=== PATIENT | female | born 1935 | race Caucasian/White ===

== ENCOUNTER 2016-08-22 17:38 | Inpatient (IN) | payer MEDICARE, OTHER ==
[~2016-08-22] VITALS: Ht 154.9 cm; Wt 68.5 kg
[~2016-08-22 17:38] MED LIST: ADVAIR 500-501 EACH IH; ATORVASTATIN CA10 MG PO; ATROVENT INH S2.5 ML HHN; CARDIZEM CD300 MG PO; CARDIZEM90 MG ORAL; CEPHALEXIN500 MG ORAL; COMBIVENT INH14.7 GM INH; FUROSEMIDE40 MG ORAL; KEFLEX500 MG ORAL; LASIX40 MG ORAL; LASIX80 MG PO; LISINOPRIL20 MG ORAL; METHADONE HCL10 MG PO; METHADONE HCL5 MG PO; NKM; OMEPRAZOLE20 MG PO; OMEPRAZOLE40 M1 ORAL; PREDNISONE10 MG ORAL; PREDNISONE20 MG ORAL; PROAIR HFA8.5 GM INH; SYNTHROID75 MCG PO; ZESTRIL20 MG PO; ZITHROMAX250 MG ORAL
[2016-08-22] MEDS ORDERED: DuoNeb 0.5-3(2.5)mg/3ml neb ONE (17:40)
[2016-08-22 17:44] VITALS: BP 153/101
--- NOTE | 2016-08-22 17:59 | Emergency Room Report ---
History of Present Illness General Chief Complaint: Dyspnea/Respdistress Source: Patient, EMS Present Illness HPI Patient is an 81-year-old female who presented after increased shortness of breath. Patient gradual onset of symptoms. Patient had taken albuterol prior to arrival. Patient was brought in by EMS. The patient was noted to have prior history of COPD. Patient is followed by Dr. Dallas Branch. She reportedly intermittently uses home oxygen. The patient's history was a smoker approximately 15 years ago. Patient denied any fever. She reports having leg swelling which reportedly is unchanged Allergies: Coded Allergies: MOXIFLOXACIN HCL (Verified Allergy, Intermediate, Rash, 04/08/12) HYDROCHLOROTHIAZIDE (Verified Adverse Reaction, Intermediate, HYPONATEREMIA, 03/22/13) TRIAMTERENE (Verified Adverse Reaction, Intermediate, HYPONATEREMIA, ) Patient History Reviewed Nursing Documentation: PMH: Agreed, PSxH: Agreed Nursing Documentation-PMH Hx Cardiac Problems: Yes Hx Hypertension: Yes Hx Asthma: Yes Hx COPD: Yes Hx Cancer: Yes Hx Gastrointestinal Problems: Yes - colostomy; rectal ca ,Bladder removed 15- 20 years ago Hx Neurological Problems: Yes Hx Cerebrovascular Accident: Yes Hx Transient Ischemic Attacks: No Hx Dementia: No Hx Alzheimer's Disease: No Hx Parkinson's Disease: No Hx Meningitis: No Hx Encephalitis: No Hx Seizures: No Hx Epilepsy: No Hx Multiple Sclerosis: No Hx Cerebral Palsy: No Hx Amyotrophic Lat Sclerosis: No Hx Guillian-Wharton Syndrome: No Hx Paralysis: No Hx Peripheral Neuropathy: No Hx Spinal Cord Injury: No Hx Head Trauma: No Hx Traumatic Brain Injury: No Hx Concentration Difficulty: No Hx Speech Problem: Yes - 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 Hx Tremors: No Hx Vertigo: No Hx Dizziness: No Hx Syncope: No Hx Headaches: No Hx Aphasia: No Hx Dysphasia: No Hx Numbness: No Hx Weakness: No Hx Fatigue: No Hx Neurologic Surgery: No Hx Brain Shunt: No Review of Systems All Other Systems: negative except mentioned in HPI Physical Exam Vital Signs Date Time Temp Pulse Resp B/P Pulse Ox O2 Delivery O2 Flow Rate FiO2 08/22/16 17:37 98.4 87 21 153/101 91 Room Air Sp02 EP Interpretation: reviewed, normal General Appearance: normal inspection, alert, GCS 15, moderate distress Head: atraumatic ENT: normal ENT inspection, hearing grossly normal, normal voice Neck: normal inspection, full range of motion, supple, no bony tend Respiratory: normal inspection, normal breath sounds, no retraction, decreased breath sounds, wheezing Cardiovascular #1: regular rate, rhythm, no edema Gastrointestinal: normal inspection, normal bowel sounds, non tender, soft, no guarding, no hernia Genitourinary: no CVA tenderness Musculoskeletal: normal inspection, back normal, normal range of motion Neurologic: normal inspection, alert, oriented x3, responsive, speech normal Psychiatric: normal inspection, judgement/insight normal, mood/affect normal Skin: normal inspection, normal color, no rash Medical Decision Making Diagnostic Impression: Primary Impression: COPD (chronic obstructive pulmonary disease) Additional Impressions: Hypoxemia UTI (urinary tract infection) ER Course Patient presented for shortness of breath.Differential included but was not limited to anemia, pneumonia, pneumothorax, myocardial infarction, pericardial effusion, congestive heart failure, acidosis. Because of complexity of patient' s case laboratory testing and imaging studies were ordered.The patient was noted to have history of COPD. Patient was given breathing treatment. Initial oxygen saturation was noted to be approximately 88.Patient was noted to have the chest x-ray one view interpreted by me which showed scarring versus atelectasis in the right lung as well as normal cardiac size without have definite infiltrate.The patient was given breathing treatments as well as Solu- Medrol. Laboratory testing was unremarkable. The patient had some improvement in her breathing. Patient was discussed with Dr. Dallas Branch for inpatient management. Labs Test 08/22/16 17:55 08/22/16 18:43 White Blood Count 10.2 K/UL (4.8-10.8) Red Blood Count 5.36 M/UL (4.20-5.40) Hemoglobin 16.0 G/DL (12.0-16.0) Hematocrit 48.8 % (37.0-47.0) Mean Corpuscular Volume 91 FL (80-99) Mean Corpuscular Hemoglobin 29.8 PG (27.0-31.0) Mean Corpuscular Hemoglobin Concent 32.8 G/DL (32.0-36.0) Red Cell Distribution Width 11.5 % (11.6-14.8) Platelet Count 177 K/UL (150-450) Mean Platelet Volume 7.1 FL (6.5-10.1) Neutrophils (%) (Auto) 82.4 % (45.0-75.0) Lymphocytes (%) (Auto) 8.0 % (20.0-45.0) Monocytes (%) (Auto) 8.0 % (1.0-10.0) Eosinophils (%) (Auto) 0.9 % (0.0-3.0) Basophils (%) (Auto) 0.8 % (0.0-2.0) Sodium Level 131 mEQ/L (135-145) Potassium Level 4.8 mEQ/L (3.4-4.9) Chloride Level 89 mEQ/L (98-107) Carbon Dioxide Level 24 mEQ/L (20-30) Anion Gap 18 (5-15) Blood Urea Nitrogen 10 mg/dL (7-23) Creatinine 0.9 mg/dL (0.5-0.9) Estimat Glomerular Filtration Rate mL/min (>60) Glucose Level 113 mg/dL (74-106) Lactic Acid Level 1.00 mmol/L (0.66-2.22) Calcium Level 9.5 mg/dL (8.6-10.2) Total Bilirubin 0.7 mg/dL (0.0-1.2) Aspartate Amino Transf (AST/SGOT) 30 U/L (5-40) Alanine Aminotransferase (ALT/SGPT) 19 U/L (3-33) Alkaline Phosphatase 101 U/L (35-104) Total Creatine Kinase 128 U/L (26-140) Creatine Kinase MB 4.0 ng/mL (< 3.8) Creatine Kinase MB Relative Index 3.1 Troponin I < 0.30 ng/mL (<=0.30) Pro-B-Type Natriuretic Peptide 168 pg/mL (0-450) Total Protein 7.1 g/dL (6.6-8.7) Albumin 4.3 g/dL (3.5-5.2) Globulin 2.8 g/dL Albumin/Globulin Ratio 1.5 (1.0-2.7) Urine Color Yellow Urine Appearance Clear Urine pH 6.5 (4.5-8.0) Urine Specific [place] 1.010 (1.005-1.035) Urine Protein Negative (NEGATIVE) Urine Glucose (UA) Negative (NEGATIVE) Urine Ketones Negative (NEGATIVE) Urine Occult Blood Negative (NEGATIVE) Urine Nitrite Negative (NEGATIVE) Urine Bilirubin Negative (NEGATIVE) Urine Urobilinogen Normal MG/DL (0.0-1.0) Urine Leukocyte Esterase 2+ (NEGATIVE) Urine RBC 0-2 /HPF (0 - 2) Urine WBC 2-4 /HPF (0 - 2) Urine Squamous Epithelial Cells Few /LPF (NONE/OCC) Urine Bacteria Few /HPF (NONE) Chest X-Ray Diagnostic Results EP Interpretation: Yes Findings: no consolidation, no effusion, no pneumothorax, no acute cardiopulmonary disease Number of Views: 1 Last Vital Signs Date Time Temp Pulse Resp B/P Pulse Ox O2 Delivery O2 Flow Rate FiO2 08/22/16 17:44 98.4 81 21 153/101 91 Room Air Status: unchanged Disposition: ADMITTED INPATIENT Condition: Serious Scripts Prednisone* (PREDNISONE*) 20 Mg Tablet 40 MG ORAL DAILY, #10 TAB Prov: Gino Landaverde 08/22/16 Gino Landaverde Aug 22, 2016 17:59
[2016-08-22] MEDS ORDERED: DuoNeb 0.5-3(2.5)mg/3ml neb HHN ONE (18:00)
[2016-08-22 18:29] LABS: ALANINE AMINOTRANSFERASE 19 U/L (3-33); ALBUMIN/GLOBULIN RATIO 1.5 (1.0-2.7); ANION GAP 18 (5-15); ASPARTATE AMINO TRANSFERASE 30 U/L (5-40); CALCIUM 9.5 mg/dL (8.6-10.2); CARBON DIOXIDE 24 mEQ/L (20-30); CHLORIDE 89 mEQ/L (98-107); CREATININE 0.9 mg/dL (0.5-0.9); HEMOLYSIS 90; POTASSIUM 4.8 mEQ/L (3.4-4.9); SODIUM 131 mEQ/L (135-145); TOTAL PROTEIN 7.1 g/dL (6.6-8.7); TROPONIN I < 0.30 ng/mL (<=0.30)
[2016-08-22 18:30] LABS: BASOPHILS % (AUTO) 0.8 % (0.0-2.0); EOSINOPHILS % (AUTO) 0.9 % (0.0-3.0); MEAN CORPUSCULAR HEMOGLOBIN 29.8 PG (27.0-31.0); MEAN CORPUSCULAR HGB CONC 32.8 G/DL (32.0-36.0); MEAN CORPUSCULAR VOLUME 91 FL (80-99); MEAN PLATELET VOLUME 7.1 FL (6.5-10.1); NEUTROPHILS % (AUTO) 82.4 % (45.0-75.0); PLATELET COUNT 177 K/UL (150-450); RED BLOOD COUNT 5.36 M/UL (4.20-5.40); RED CELL DISTRIBUTION WIDTH 11.5 % (11.6-14.8); WHITE BLOOD COUNT 10.2 K/UL (4.8-10.8)
[2016-08-22 19:13] VITALS: BP 125/55
[2016-08-22] MEDS ORDERED: Solu-MEDROL 125mg Inj IVP ONE (19:45)
[2016-08-22 19:48] LABS: APPEARANCE,URINE CLEAR; KETONES,URINE NEGATIVE (NEGATIVE); LEUKOCYTE ESTERASE ,URINE 2+ (NEGATIVE); NITRITE,URINE NEGATIVE (NEGATIVE); PH,URINE 6.5 (4.5-8.0); PROTEIN,URINE NEGATIVE (NEGATIVE); UROBILINOGEN,URINE NORMAL MG/DL (0.0-1.0)
[2016-08-22 20:02] LABS: BACTERIA,URINE FEW /HPF; RBC,URINE 0-2 /HPF (0 - 2); SQUAMOUS EPITHELIAL CELL,UR FEW /LPF (NONE/OCC)
[2016-08-22] MEDS ORDERED: PREDNISONE20 MG ORAL (20:07)
[2016-08-22 21:04] VITALS: BP 132/57
[2016-08-22 21:15] VITALS: BP 135/69
[2016-08-22 23:19] VITALS: BP 103/55
[2016-08-23] MEDS: DuoNeb 0.5-3(2.5)mg/3ml neb HHN SCH ×7 (03:00→22:55)
[2016-08-23 03:37] VITALS: BP 136/64
[2016-08-23] MEDS: Solu-MEDROL 40mg Inj IVP SCH ×3 (06:29→21:47)
[2016-08-23 07:47] LABS: BASOPHILS % (AUTO) 0.7 % (0.0-2.0); EOSINOPHILS % (AUTO) 2.4 % (0.0-3.0); LYMPHOCYTES % (AUTO) 17.3 % (20.0-45.0); MEAN CORPUSCULAR HEMOGLOBIN 30.3 PG (27.0-31.0); MEAN CORPUSCULAR HGB CONC 32.5 G/DL (32.0-36.0); MEAN CORPUSCULAR VOLUME 93 FL (80-99); MEAN PLATELET VOLUME 6.5 FL (6.5-10.1); NEUTROPHILS % (AUTO) 68.6 % (45.0-75.0); PLATELET COUNT 143 K/UL (150-450); RED BLOOD COUNT 4.49 M/UL (4.20-5.40); RED CELL DISTRIBUTION WIDTH 11.9 % (11.6-14.8); WHITE BLOOD COUNT 8.7 K/UL (4.8-10.8)
[2016-08-23 07:55] LABS: ALANINE AMINOTRANSFERASE 17 U/L (3-33); ALBUMIN/GLOBULIN RATIO 1.5 (1.0-2.7); ANION GAP 11 (5-15); ASPARTATE AMINO TRANSFERASE 22 U/L (5-40); CALCIUM 8.9 mg/dL (8.6-10.2); CARBON DIOXIDE 31 mEQ/L (20-30); CHLORIDE 91 mEQ/L (98-107); CHOLESTEROL 125 mg/dL (< 200); CHOLESTEROL/HDL RATIO 1.4 (3.3-4.4); CREATININE 0.9 mg/dL (0.5-0.9); HEMOLYSIS 5; LDL CHOLESTEROL (CALC.) 29 mg/dL (60-99); POTASSIUM 4.6 mEQ/L (3.4-4.9); SODIUM 133 mEQ/L (135-145); TOTAL PROTEIN 6.1 g/dL (6.6-8.7)
[2016-08-23 08:26] VITALS: BP 126/67
[2016-08-23] MEDS: Diltiazem CD 180mg cap ORAL SCH (09:05)
[2016-08-23] MEDS: Lisinopril 20mg tab ORAL SCH ×2 (09:05→18:00)
[2016-08-23] MEDS: Azithromycin 250mg tab ORAL SCH (09:06)
--- NOTE | 2016-08-23 10:40 | Diagnostic Imaging Report ---
Indication: SOB Technique: One view of the chest Comparison: 05/13/2016 Findings: Lungs are somewhat hyperinflated. Heart size is normal. Aorta is elongated tortuous and calcified. There is central bronchial wall thickening Findings are unchanged Impression: No acute process. Findings as noted This agrees with the preliminary interpretation provided by the emergency room physician
[2016-08-23 11:43] VITALS: BP 115/75
[2016-08-23 16:00] VITALS: BP 92/58
--- NOTE | 2016-08-23 16:54 | History & Physical ---
History and Physical History & Physicial CC: SOB, emesis HISTORY OF PRESENT ILLNESS: Patient is a 81-year-old woman who was admitted through the emergency department. She came in complaining of increased SOB and emesis, unable to keep liquids down She has developed edema of both legs. BNP normal. She feels better today. PAST MEDICAL HISTORY: Hypertension, COPD, rectal cancer with colostomy. 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 She had a stroke with good recovery in 1998. She was admitted for SBO in past. ALLERGIES: HYDROCHLOROTHIAZIDE, MOXIFLOXACIN, TRIAMTERENE. FAMILY HISTORY: Negative for cardiac disease. MEDICATIONS: Reviewed and reconciled. REVIEW OF SYSTEMS: She has no personal history of cardiac disease. There is no chest pain. She has pedal edema. She has no nausea, vomiting or diarrhea. She does complain of joint pain. PHYSICAL EXAMINATION: GENERAL: The patient is alert and responsive. She is overweight. She is in no distress. VITAL SIGNS: Sinus rhythm, VS stable, low grade fever HEENT: Head is normocephalic. NECK: Not distended. CHEST: Decreased air entry with mild wheezing. CARDIAC: Rhythm is regular ABDOMEN: Soft and nontender, colostomy is in place. EXTREMITIES: ++ edema. CXR NAD IMPRESSION: 1. Acute exacerbation COPD 2. edema, normal BNP 3. Hyperlipidemia 4. History of colorectal cancer with colostomy. 5. Hypertension. Plan: HHN steroids lasix O2 RIAZ Palacios Aug 23, 2016 16:54
[2016-08-23 20:00] VITALS: BP 145/70
[2016-08-23] MEDS ORDERED: Atorvastatin 20mg tab ORAL SCH (21:00)
[2016-08-24] VITALS: BP 126/62
[2016-08-24] MEDS: DuoNeb 0.5-3(2.5)mg/3ml neb HHN SCH ×3 (03:00→10:54)
[2016-08-24 04:30] VITALS: BP 127/74
[2016-08-24] MEDS: Solu-MEDROL 40mg Inj IVP SCH ×2 (06:30→14:22)
[2016-08-24 08:00] VITALS: BP 133/66
[2016-08-24] MEDS: Azithromycin 250mg tab ORAL SCH (08:41)
[2016-08-24] MEDS: Lisinopril 20mg tab ORAL SCH (08:43)
[2016-08-24] MEDS: Diltiazem CD 180mg cap ORAL SCH (08:45)
--- NOTE | 2016-08-24 11:03 | Diagnostic Imaging Report ---
APPROVED REPORT CPT Code: 48526 Present Symptoms Comments: Swelling RIGHT LEG: Venous imaging reveals recanalized chronic thrombus in the superficial femoral vein. Large collateral vein noted anterior to the superficial femoral artery. The remainder of the deep venous system is within normal limits. There is no evidence of thrombus in the common femoral, popliteal or calf veins. The greater saphenous vein is also within normal limits. Doppler indicates normal spontaneous flow within these segments. LEFT LEG: Venous imaging reveals a patent deep venous system. There is no evidence of thrombus within the femoral, popliteal or tibial segments. The greater saphenous vein is also within normal limits. Doppler indicates normal spontaneous flow within these segments. There is no evidence of acute deep vein thrombosis.
[2016-08-24 11:25] VITALS: BP 127/64
[2016-08-24] MEDS ORDERED: PREDNISONE10 M2 PO (14:29)
[2016-08-24] MEDS ORDERED: FUROSEMIDE20 M1 ORAL (14:29)
--- NOTE | 2016-08-24 14:32 | Discharge Summary ---
Discharge Summary Hospital Course Date of Admission Aug 22, 2016 at 18:10 Date of Discharge 08/24/16 Admitting Diagnosis COPD EXACERBATION HPI Sherley Rceinos is a 81 year old female who was admitted on Aug 22, 2016 at 18: 10 for Chronic Obstructive Pulmonary Disease Exacerbation Consultations no Procedures no Hospital Course 1. Acute exacerbation COPD 2. edema, normal BNP 3. Hyperlipidemia 4. History of colorectal cancer with colostomy. 5. Hypertension. improved w steroids, lasix dc home Discharge Medications New Medications: Prednisone (Prednisone) 10 Mg Tab.ds.pk 10 MG PO QD for 10 Days, #10 PACK Furosemide* (Lasix*) 20 Mg Tablet 20 MG ORAL DAILY, #30 TAB Continued Medications: Atorvastatin Calcium* (Lipitor*) 10 Mg Tablet 20 MG PO QHS Take one tablet by mouth at bedtime daily Diltiazem HCl (Diltiazem HCl) 90 Mg Tab 360 MG ORAL DAILY, TAB Fluticasone/Salmeterol (Advair 500-50 Diskus) 1 Each Disk.w.dev 1 EACH IH BID Ipratropium/Albuterol Sulfate (Combivent Inhaler) 14.7 Gm Aer.w.adap 2 PUFFS INH FOUR TIMES A DAY PRN for Shortness of Breath Levothyroxine Sodium* (Synthroid*) 75 Mcg Tablet 100 MCG PO DAILY, TAB Take 1 tablet by mouth every day. Lisinopril (Lisinopril*) 20 Mg Tablet 20 MG ORAL BID, TAB 0 Refills Methadone Hcl* (Methadone*) 5 Mg Tablet 50 MG PO DAILY, TAB 0 Refills Omeprazole (Omeprazole) 40 Mg Capsule.dr 40 MG ORAL DAILY PRN for Nausea & Vomiting, CAP 0 Refills Discontinued Medications: Azithromycin* (Zithromax*) 250 Mg Tablet 250 MG ORAL DAILY, #6 TAB Cephalexin* (Keflex*) 500 Mg Capsule 500 MG ORAL EVERY 8 HOURS, #21 CAP 0 Refills Prednisone* (Prednisone*) 10 Mg Tablet 10 MG ORAL DAILY for 5 Days, #10 TAB 0 Refills Prednisone* (Prednisone*) 20 Mg Tablet 40 MG ORAL DAILY, #10 TAB Discharge Condition Upon Discharge: improving Discharge Disposition Patient was discharged to home Discharge Diagnoses: (1) Acute exacerbation of chronic obstructive pulmonary disease (COPD) (2) Edema extremities (3) Hypothyroid RIAZ FRAGOSO Aug 24, 2016 14:32
--- NOTE | 2016-08-25 03:10 | Cardiology Report ---
APPROVED REPORT EKG Measurement Heart [id number] ID [id number] Normal sinus rhythm Cannot rule out Anterior infarct, age undetermined Abnormal ECG
== END 2016-08-24 15:30 | disposition home or self-care (01) | DRG 192 ==
LOC: EDSEX 17:38 → EDBD 17:38 → EMR 18:06 → UNDOADMIN 18:10 → 2E 18:10 → EDBEDREQ 19:37
DX: J44.1 Chronic obstructive pulmonary disease with (acute) exacerbation (principal); Z99.81 Dependence on supplemental oxygen; I10 Essential (primary) hypertension; E78.5 Hyperlipidemia, unspecified; Z93.3 Colostomy status; R09.02 Hypoxemia; K21.9 Gastro-esophageal reflux disease without esophagitis; B19.20 Unspecified viral hepatitis C without hepatic coma; E03.9 Hypothyroidism, unspecified; Z86.73 Personal history of transient ischemic attack (TIA), and cerebral infarction without residual deficits; Z85.038 Personal history of other malignant neoplasm of large intestine; Z79.891 Long term (current) use of opiate analgesic; Z87.891 Personal history of nicotine dependence; Z86.718 Personal history of other venous thrombosis and embolism
CPT/HCPCS: 36415; 71010; 80053; 80061; 81003; 82550; 82553; 83605; 83880; 84443; 84484; 85025; 86710; 87040; 93005; 93970; 94640; 94644; 94664; J2405; J7620

== ENCOUNTER 2017-01-22 03:32 | Emergency (ER) | payer MEDICARE, OTHER ==
[~2017-01-22] VITALS: Ht 154.9 cm; Wt 59.0 kg
[~2017-01-22 03:32] MED LIST changes: +FUROSEMIDE20 M1 ORAL; +PREDNISONE10 M2 PO
[2017-01-22 04:18] LABS: BASOPHILS % (AUTO) 0.8 % (0.0-2.0); EOSINOPHILS % (AUTO) 0.3 % (0.0-3.0); LYMPHOCYTES % (AUTO) 7.9 % (20.0-45.0); MEAN CORPUSCULAR HGB CONC 32.7 G/DL (32.0-36.0); MEAN CORPUSCULAR VOLUME 95 FL (80-99); MEAN PLATELET VOLUME 6.6 FL (6.5-10.1); NEUTROPHILS % (AUTO) 82.9 % (45.0-75.0); PLATELET COUNT 185 K/UL (150-450); RED BLOOD COUNT 5.12 M/UL (4.20-5.40); RED CELL DISTRIBUTION WIDTH 11.3 % (11.6-14.8); WHITE BLOOD COUNT 8.5 K/UL (4.8-10.8)
[2017-01-22 04:29] LABS: PROTHROMBIN TIME 10.2 SEC (9.30-11.50)
[2017-01-22 04:37] LABS: ALANINE AMINOTRANSFERASE 18 U/L (3-33); ALBUMIN/GLOBULIN RATIO 1.3 (1.0-2.7); ANION GAP 13 (5-15); ASPARTATE AMINO TRANSFERASE 24 U/L (5-40); CALCIUM 9.6 mg/dL (8.6-10.2); CARBON DIOXIDE 26 mEQ/L (20-30); CHLORIDE 93 mEQ/L (98-107); CREATININE 0.8 mg/dL (0.5-0.9); HEMOLYSIS 10; POTASSIUM 4.6 mEQ/L (3.4-4.9); SODIUM 132 mEQ/L (135-145)
[2017-01-22 05:23] LABS: APPEARANCE,URINE CLOUDY; KETONES,URINE 1+ (NEGATIVE); LEUKOCYTE ESTERASE ,URINE 3+ (NEGATIVE); NITRITE,URINE NEGATIVE (NEGATIVE); PH,URINE 7 (4.5-8.0); PROTEIN,URINE 3+ (NEGATIVE); UROBILINOGEN,URINE NORMAL MG/DL (0.0-1.0)
[2017-01-22 05:37] LABS: BACTERIA,URINE FEW /HPF; RBC,URINE TNTC /HPF (0 - 2); SQUAMOUS EPITHELIAL CELL,UR FEW /LPF (NONE/OCC); WBC,URINE 15-20 /HPF (0 - 2)
[2017-01-22] MEDS ORDERED: cefTRIAXone 1 GM in NS 55 ML IVPB ONE (05:45)
[2017-01-22 06:17] LABS: ICTOTEST NEGATIVE
[2017-01-22] MEDS ORDERED: KEFLEX500 MG ORAL (06:54)
[2017-01-22 07:02] VITALS: BP 172/81
--- NOTE | 2017-01-22 07:06 | Emergency Room Report ---
History of Present Illness General Chief Complaint: Female Urogenital Problems Source: Patient, EMS Present Illness HPI This is a 82-year-old female presented after increased hematuria. Patient gradual onset of symptoms over the past 3 days. Patient had prior been having history of COPD. Patient denied any fever. She had not been vomiting. Patient had been having some increase pain to her lower abdomen. Patient had prior history of colostomy as well as prior partial colectomy. Allergies: Coded Allergies: MOXIFLOXACIN HCL (Verified Allergy, Intermediate, Rash, 04/08/12) HYDROCHLOROTHIAZIDE (Verified Adverse Reaction, Intermediate, HYPONATEREMIA, 03/22/13) TRIAMTERENE (Verified Adverse Reaction, Intermediate, HYPONATEREMIA, ) Patient History Past Medical History: see triage record Last Menstrual Period: NONE Reviewed Nursing Documentation: PMH: Agreed, PSxH: Agreed Nursing Documentation-PMH Hx Cardiac Problems: Yes Hx Hypertension: Yes - EMPHYSEMA Hx Asthma: Yes Hx COPD: Yes Hx Cancer: Yes - Rectal Cancer Hx Gastrointestinal Problems: Yes Hx Neurological Problems: Yes Hx Cerebrovascular Accident: Yes Hx Transient Ischemic Attacks: No Hx Dementia: No Hx Alzheimer's Disease: No Hx Parkinson's Disease: No Hx Meningitis: No Hx Encephalitis: No Hx Seizures: No Hx Epilepsy: No Hx Multiple Sclerosis: No Hx Cerebral Palsy: No Hx Amyotrophic Lat Sclerosis: No Hx Guillian-Hughson Syndrome: No Hx Paralysis: No Hx Peripheral Neuropathy: No Hx Spinal Cord Injury: No Hx Head Trauma: No Hx Traumatic Brain Injury: No Hx Concentration Difficulty: No Hx Speech Problem: Yes - 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 Hx Tremors: No Hx Vertigo: No Hx Dizziness: No Hx Syncope: No Hx Headaches: No Hx Aphasia: No Hx Dysphasia: No Hx Numbness: No Hx Weakness: No Hx Fatigue: No Hx Neurologic Surgery: No Hx Brain Shunt: No Review of Systems All Other Systems: negative except mentioned in HPI Physical Exam Vital Signs Date Time Temp Pulse Resp B/P Pulse Ox O2 Delivery O2 Flow Rate FiO2 01/22/17 03:26 99.0 80 20 121/59 95 Nasal Cannula 3.0 Sp02 EP Interpretation: reviewed, normal General Appearance: normal inspection, alert, GCS 15, obese, Chronically Ill Head: atraumatic ENT: normal ENT inspection, hearing grossly normal, normal voice Neck: normal inspection, full range of motion, supple, no bony tend Respiratory: normal inspection, lungs clear, no respiratory distress, no retraction, no wheezing Cardiovascular #1: regular rate, rhythm, no edema Gastrointestinal: normal inspection, normal bowel sounds, non tender, soft, no guarding, no hernia Genitourinary: no CVA tenderness Musculoskeletal: normal inspection, back normal, normal range of motion Neurologic: normal inspection, alert, oriented x3, responsive, cobbler apprentice III-XII nml as tested, speech normal Psychiatric: normal inspection, judgement/insight normal, mood/affect normal Skin: normal inspection, normal color, no rash Medical Decision Making Diagnostic Impression: Primary Impression: Gross hematuria Additional Impressions: COPD (chronic obstructive pulmonary disease) Bladder mass ER Course Patient presented for hematuria. Differential diagnoses include was not limited to bladder cancer, stone, coagulopathy, renal cell carcinoma, abdominal aortic aneurysm. Because of complexity of patient's case laboratory testing and imaging studies were ordered. CT imaging of the abdomen pelvis read by radiology showed a esion of the left side of the bladder concerning for possible bladder tumor. The CBC showed normal hemoglobin and normal white blood count. The patient was noted to have urinalysis with few bacteria as well as small amount of white blood cells with too numerous to count red cells. Dr. Branch was contacted and the patient will be referred for a urology consult is an outpatient Labs Test 01/22/17 04:10 01/22/17 04:45 White Blood Count 8.5 K/UL (4.8-10.8) Red Blood Count 5.12 M/UL (4.20-5.40) Hemoglobin 15.9 G/DL (12.0-16.0) Hematocrit 48.5 % (37.0-47.0) Mean Corpuscular Volume 95 FL (80-99) Mean Corpuscular Hemoglobin 31.0 PG (27.0-31.0) Mean Corpuscular Hemoglobin Concent 32.7 G/DL (32.0-36.0) Red Cell Distribution Width 11.3 % (11.6-14.8) Platelet Count 185 K/UL (150-450) Mean Platelet Volume 6.6 FL (6.5-10.1) Neutrophils (%) (Auto) 82.9 % (45.0-75.0) Lymphocytes (%) (Auto) 7.9 % (20.0-45.0) Monocytes (%) (Auto) 8.0 % (1.0-10.0) Eosinophils (%) (Auto) 0.3 % (0.0-3.0) Basophils (%) (Auto) 0.8 % (0.0-2.0) Prothrombin Time 10.2 SEC (9.30-11.50) Prothromb Time International Ratio 1.0 (0.9-1.1) Activated Partial Thromboplast Time 24 SEC (23-33) Sodium Level 132 mEQ/L (135-145) Potassium Level 4.6 mEQ/L (3.4-4.9) Chloride Level 93 mEQ/L (98-107) Carbon Dioxide Level 26 mEQ/L (20-30) Anion Gap 13 (5-15) Blood Urea Nitrogen 12 mg/dL (7-23) Creatinine 0.8 mg/dL (0.5-0.9) Estimat Glomerular Filtration Rate mL/min (>60) Glucose Level 122 mg/dL (74-106) Calcium Level 9.6 mg/dL (8.6-10.2) Total Bilirubin 0.6 mg/dL (0.0-1.2) Aspartate Amino Transf (AST/SGOT) 24 U/L (5-40) Alanine Aminotransferase (ALT/SGPT) 18 U/L (3-33) Alkaline Phosphatase 75 U/L (35-104) Total Protein 7.0 g/dL (6.6-8.7) Albumin 4.0 g/dL (3.5-5.2) Globulin 3.0 g/dL Albumin/Globulin Ratio 1.3 (1.0-2.7) Urine Color [place] Urine Appearance Cloudy Urine pH 7 (4.5-8.0) Urine Specific [place] 1.005 (1.005-1.035) Urine Protein 3+ (NEGATIVE) Urine Glucose (UA) Negative (NEGATIVE) Urine Ketones 1+ (NEGATIVE) Urine Occult Blood 5+ (NEGATIVE) Urine Nitrite Negative (NEGATIVE) Urine Bilirubin Negative (NEGATIVE) Urine Ictotest Negative Urine Urobilinogen Normal MG/DL (0.0-1.0) Urine Leukocyte Esterase 3+ (NEGATIVE) Urine RBC Tntc /HPF (0 - 2) Urine WBC 15-20 /HPF (0 - 2) Urine Squamous Epithelial Cells Few /LPF (NONE/OCC) Urine Bacteria Few /HPF (NONE) Last Vital Signs Date Time Temp Pulse Resp B/P Pulse Ox O2 Delivery O2 Flow Rate FiO2 01/22/17 03:26 99.0 80 20 121/59 95 Nasal Cannula 3.0 Status: improved Disposition: HOME, SELF-CARE Condition: Stable Scripts Cephalexin* (KEFLEX*) 500 Mg Capsule 500 MG ORAL Q6H, #28 CAP 0 Refills Prov: Gino Landaverde 01/22/17 Patient Instructions: Hematuria, Adult Gino Landaverde Jan 22, 2017 07:06
--- NOTE | 2017-01-22 09:17 | Diagnostic Imaging Report ---
Clinical Indication: Abdominal pain, blood in urine Technique: No oral contrast utilized, per emergency room physician request IV administration nonionic contrast. Venous phase spiral acquisition obtained through the abdomen and pelvis. Multiplanar reconstructions were generated. Total dose length product 744 mGycm. CTDIvol(s) 17 mGy. Dose reduction achieved using automated exposure control Comparison: 08/12/[address] Findings: There is a left-sided bladder wall mass protruding into the bladder lumen. This measures 2.5 x 1.8 cm. This was not evident previously There is a prominent right extrarenal pelvis, but no evidence of ureterectasia or posterior ureteral obstruction. Appearance is similar to the prior exam No left-sided hydronephrosis. Renal parenchyma is unremarkable bilaterally. Numerous surgical clips are seen surrounding the bladder. The liver is unremarkable except for a subcentimeter low-attenuation lesion in segment 8 which is too small to characterize. The gallbladder is absent, presumably postsurgically. There is extrahepatic and mild central intrahepatic biliary ductal dilatation, common bile duct measuring up to 12 mm diameter. No downstream obstructive lesion is demonstrated, and findings are similar to the prior study. The pancreas, spleen, adrenals are unremarkable. No retroperitoneal or mesenteric mass or adenopathy. No pelvic mass or adenopathy. The uterus is not visualized, presumed surgically absent. The appendix is not definitely identified, but there are no findings to suggest acute appendicitis. There is a moderate amount of retained colonic stool. No evidence of diverticulosis or diverticulitis. There is a signal colostomy and evidence of prior rectal resection. No free or loculated intraperitoneal air or fluid is evident. Distal esophagus, stomach, duodenum are unremarkable. The included lung bases are clear. However, the area of the previously reported spiculated right lung base opacity is excluded from the current imaging volume. There is suggestion of slight hyperinflation. The bones demonstrate degenerative spondylosis changes. There is an inferior vena cava filter again demonstrated. Impression: 2.5 x 1.8 cm left-sided bladder wall mass, suspicious for neoplasm. Recommend cystoscopy for further evaluation Evidence of prior cholecystectomy. Extrahepatic and mild central intrahepatic biliary ductal location, unchanged from 2012 exam. Most likely related to age and postcholecystectomy state. Correlate with liver function tests Evidence of prior proctectomy and sigmoid colostomy Possible mild constipation Note that previously reported spiculated right lung base density is not visualized currently but this area is not included in the current imaging volume. Subcentimeter low-attenuation lesion segment 8 of the right hepatic lobe, too small to characterize, most likely benign simple cysts or bile hamartoma Other findings as described, including inferior vena cava filter, possible mild COPD. This agrees with the preliminary interpretation provided overnight by [facility] teleradiology service. The CT scanner at [facility] is accredited by the [employer] and the scans are performed using protocols designed to limit radiation exposure to as low as reasonably achievable to attain images of sufficient resolution adequate for diagnostic evaluation.
== END 2017-01-22 07:00 | disposition home or self-care (01) ==
LOC: EDBD 03:32 → EMR 04:17
DX: R31.0 Gross hematuria (principal); J44.9 Chronic obstructive pulmonary disease, unspecified; N32.89 Other specified disorders of bladder; Z85.51 Personal history of malignant neoplasm of bladder; Z85.048 Personal history of other malignant neoplasm of rectum, rectosigmoid junction, and anus; Z86.73 Personal history of transient ischemic attack (TIA), and cerebral infarction without residual deficits; Z90.49 Acquired absence of other specified parts of digestive tract
CPT/HCPCS: 36415; 74177; 80053; 81003; 85025; 85610; 85730; 87086; 96374; 99284; J0696; Q9967

== ENCOUNTER 2017-02-21 12:18 | Inpatient (IN) | payer MEDICARE, OTHER ==
[~2017-02-21] VITALS: Ht 149.9 cm; Wt 49.4 kg
--- NOTE | 2017-02-21 12:44 | Emergency Room Report ---
History of Present Illness General Chief Complaint: Female Urogenital Problems Source: EMS Present Illness HPI 82-year-old female presents to the emergency department complaining of dysuria, urinary retention and hematuria x2 days. Patient denies nausea, vomiting, fevers, chills. Patient denies abdominal pain other bladder distention. Patient states that she has been seen in the past in the emergency department for gross hematuria. Patient states she is unable to followup with referral to Dr. Ramsey as she does not have transportation. recently finished a course of Keflex. Pt has colostomy bag. Patient states she is a colostomy bag.Denies CP , Palpitations, LOC, AMS, dizziness, Changes in Vision, Sensation, paresthesias , or a sudden severe headache. Allergies: Coded Allergies: MOXIFLOXACIN HCL (Verified Allergy, Intermediate, Rash, 04/08/12) HYDROCHLOROTHIAZIDE (Verified Adverse Reaction, Intermediate, HYPONATEREMIA, 03/22/13) TRIAMTERENE (Verified Adverse Reaction, Intermediate, HYPONATEREMIA, ) Patient History Past Medical History: see triage record Past Surgical History: none Pertinent Family History: none Now: No Reviewed Nursing Documentation: PMH: Agreed, PSxH: Agreed Nursing Documentation-PMH Past Medical History: No History, Except For Hx Cardiac Problems: Yes Hx Hypertension: Yes Hx Asthma: Yes Hx COPD: Yes Hx Cancer: Yes - Rectal Cancer Hx Gastrointestinal Problems: Yes Hx Neurological Problems: Yes Hx Cerebrovascular Accident: Yes Hx Transient Ischemic Attacks: No Hx Dementia: No Hx Alzheimer's Disease: No Hx Parkinson's Disease: No Hx Meningitis: No Hx Encephalitis: No Hx Seizures: No Hx Epilepsy: No Hx Multiple Sclerosis: No Hx Cerebral Palsy: No Hx Amyotrophic Lat Sclerosis: No Hx Guillian-Glade Syndrome: No Hx Paralysis: No Hx Peripheral Neuropathy: No Hx Spinal Cord Injury: No Hx Head Trauma: No Hx Traumatic Brain Injury: No Hx Concentration Difficulty: No Hx Speech Problem: Yes - 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 Hx Tremors: No Hx Vertigo: No Hx Dizziness: No Hx Syncope: No Hx Headaches: No Hx Aphasia: No Hx Dysphasia: No Hx Numbness: No Hx Weakness: No Hx Fatigue: No Hx Neurologic Surgery: No Hx Brain Shunt: No Review of Systems All Other Systems: negative except mentioned in HPI Physical Exam Vital Signs Date Time Temp Pulse Resp B/P (MAP) Pulse Ox O2 Delivery O2 Flow Rate FiO2 8/24/17 12:12 99.3 84 16 149/68 91 Room Air Sp02 EP Interpretation: reviewed, normal General Appearance: no apparent distress, alert, GCS 15, non-toxic Head: normocephalic, atraumatic Eyes: bilateral eye normal inspection, bilateral eye PERRL ENT: hearing grossly normal, normal voice Neck: full range of motion, supple/symm/no masses Respiratory: speaking full sentences, wheezing Cardiovascular #1: regular rate, rhythm, no edema Gastrointestinal: normal bowel sounds, soft, no guarding, no rebound, tenderness - mild ttp to the midline lower abdomen, no RLQ tenderness. abdomen is soft. , other - left sided colostomy bag. Rectal: deferred Genitourinary: normal inspection, no CVA tenderness, other - ttp to the midline lower abdomen about the blader. Bedside US showed distended bladder. Musculoskeletal: back normal, gait/station normal, normal range of motion, non- tender Neurologic: alert, oriented x3, responsive, motor strength/tone normal, sensory intact, normal gait, speech normal Psychiatric: judgement/insight normal, memory normal, mood/affect normal Skin: normal color, no rash, warm/dry, well hydrated Medical Decision Making PA Attestation Dr. Lynne is my supervising Physician whom patient management has been discussed with. Diagnostic Impression: Primary Impression: Acute urinary retention Additional Impression: COPD (chronic obstructive pulmonary disease) Qualified Codes: J42 - Unspecified chronic bronchitis ER Course 82-year-old female presents to the emergency department complaining of dysuria, urinary retention and hematuria x2 days. Patient denies nausea, vomiting, fevers, chills. Patient denies abdominal pain other bladder distention. Patient states that she has been seen in the past in the emergency department for gross hematuria. Patient states she is unable to followup with referral to Dr. Ramsey as she does not have transportation. recently finished a course of Keflex. Pt has colostomy bag. Patient states she is a colostomy bag.Denies CP , Palpitations, LOC, AMS, dizziness, Changes in Vision, Sensation, paresthesias , or a sudden severe headache. Ddx considered but are not limited to UTi , Pyelo, STI, Stone, Cystitis, urinary retention, neoplasm Vital signs: are WNL, pt. is afebrile H&PE are most consistent with UTI, and urinary retention in the presence of possible neoplasm of the bladder. Review of the previous CT abdomen and pelvis shows bladder mass suspicious for neoplasm per official radiology report ORDERS: - UA labs are attached: elevated WBC's and Leukocytes in the presence of few bacteria. there are squamous cells however due to elevated wbc's and leukocytes will treat for UTI. -CBC: elevated WBC's 11.1 -CMP: low sodium and chloride. -UA: elevated WBC's 5-10, few bacteria -EKG:- EK BPM NSR - no acute ST changes reviewed by Dr. De La Vega, this interpretation was scribed by SARAH Mary -CXR 1 view: hyperexpanded lungs, chronic interstitial changes, calcified aortic NAD per official radiology report. -bedside US shows retained urine , urinary bladder distention Per Dr. Lynne. ED INTERVENTIONS: -Pt. will be admitted for urinary retention and inability to care for her self. - Cagle catheter is placed: pt. has 150cc urine output. - 500cc NS bolus. to correct electrolytes DISPOSITION: at this time pt. will be admitted to Dr. Branch for Acute urinary retention. Dr. Branch agreed to admit the pt. and to continue pt. care management. Labs Test 02/21/17 13:03 02/21/17 15:22 Urine Color Pale yellow Urine Appearance Clear Urine pH 8 (4.5-8.0) Urine Specific [place] 1.010 (1.005-1.035) Urine Protein Negative (NEGATIVE) Urine Glucose (UA) Negative (NEGATIVE) Urine Ketones Negative (NEGATIVE) Urine Occult Blood Negative (NEGATIVE) Urine Nitrite Negative (NEGATIVE) Urine Bilirubin Negative (NEGATIVE) Urine Urobilinogen Normal MG/DL (0.0-1.0) Urine Leukocyte Esterase 2+ (NEGATIVE) Urine RBC 0-2 /HPF (0 - 2) Urine WBC 5-10 /HPF (0 - 2) Urine Squamous Epithelial Cells Few /LPF (NONE/OCC) Urine Bacteria Few /HPF (NONE) White Blood Count 11.1 K/UL (4.8-10.8) Red Blood Count 4.90 M/UL (4.20-5.40) Hemoglobin 15.7 G/DL (12.0-16.0) Hematocrit 46.9 % (37.0-47.0) Mean Corpuscular Volume 96 FL (80-99) Mean Corpuscular Hemoglobin 32.0 PG (27.0-31.0) Mean Corpuscular Hemoglobin Concent 33.4 G/DL (32.0-36.0) Red Cell Distribution Width 11.5 % (11.6-14.8) Platelet Count 177 K/UL (150-450) Mean Platelet Volume 6.0 FL (6.5-10.1) Neutrophils (%) (Auto) 79.6 % (45.0-75.0) Lymphocytes (%) (Auto) 11.2 % (20.0-45.0) Monocytes (%) (Auto) 8.4 % (1.0-10.0) Eosinophils (%) (Auto) 0.2 % (0.0-3.0) Basophils (%) (Auto) 0.6 % (0.0-2.0) Sodium Level 132 mEQ/L (135-145) Potassium Level 4.1 mEQ/L (3.4-4.9) Chloride Level 90 mEQ/L (98-107) Carbon Dioxide Level 32 mEQ/L (20-30) Anion Gap 10 (5-15) Blood Urea Nitrogen 7 mg/dL (7-23) Creatinine 0.8 mg/dL (0.5-0.9) Estimat Glomerular Filtration Rate mL/min (>60) Glucose Level 116 mg/dL (74-106) Calcium Level 9.2 mg/dL (8.6-10.2) Total Bilirubin 0.8 mg/dL (0.0-1.2) Aspartate Amino Transf (AST/SGOT) 26 U/L (5-40) Alanine Aminotransferase (ALT/SGPT) 23 U/L (3-33) Alkaline Phosphatase 73 U/L (35-104) Total Protein 6.7 g/dL (6.6-8.7) Albumin 4.1 g/dL (3.5-5.2) Globulin 2.6 g/dL Albumin/Globulin Ratio 1.5 (1.0-2.7) EKG Diagnostic Results EP Interpretation: Dr. De La Vega Rate: normal - 83 BPM Rhythm: NSR ST Segments: no acute changes ASA given to the pt in ED: No PA Scribe Text This interpretation by Dr. De La Vega was scribed by SARAH Mary Last Vital Signs Date Time Temp Pulse Resp B/P (MAP) Pulse Ox O2 Delivery O2 Flow Rate FiO2 02/21/17 12:12 99.3 84 16 149/68 91 Room Air Disposition: ADMITTED INPATIENT Condition: Ashley Narvaez Feb 21, 2017 12:44
[2017-02-21 13:25] LABS: APPEARANCE,URINE CLEAR; KETONES,URINE NEGATIVE (NEGATIVE); LEUKOCYTE ESTERASE ,URINE 2+ (NEGATIVE); NITRITE,URINE NEGATIVE (NEGATIVE); PH,URINE 8 (4.5-8.0); PROTEIN,URINE NEGATIVE (NEGATIVE); UROBILINOGEN,URINE NORMAL MG/DL (0.0-1.0)
[2017-02-21 13:51] LABS: BACTERIA,URINE FEW /HPF; RBC,URINE 0-2 /HPF (0 - 2); SQUAMOUS EPITHELIAL CELL,UR FEW /LPF (NONE/OCC)
--- NOTE | 2017-02-21 15:27 | Diagnostic Imaging Report ---
Indication: Chest pain Comparison: 08/22/16 A single view chest radiograph was obtained. Findings: Lungs are hyperexpanded. Some mild basilar interstitial densities are noted, chronic in nature and unchanged. Aorta is calcified. Heart size is relatively normal. Bones are osteopenic. Impression: No change. COPD
[2017-02-21 16:12] LABS: BASOPHILS % (AUTO) 0.6 % (0.0-2.0); EOSINOPHILS % (AUTO) 0.2 % (0.0-3.0); LYMPHOCYTES % (AUTO) 11.2 % (20.0-45.0); MEAN CORPUSCULAR HGB CONC 33.4 G/DL (32.0-36.0); MEAN CORPUSCULAR VOLUME 96 FL (80-99); MONOCYTES % (AUTO) 8.4 % (1.0-10.0); NEUTROPHILS % (AUTO) 79.6 % (45.0-75.0); PLATELET COUNT 177 K/UL (150-450); RED CELL DISTRIBUTION WIDTH 11.5 % (11.6-14.8); WHITE BLOOD COUNT 11.1 K/UL (4.8-10.8)
[2017-02-21] MEDS ORDERED: LASIX40 MG ORAL (16:44)
[2017-02-21 16:46] LABS: ALANINE AMINOTRANSFERASE 23 U/L (3-33); ALBUMIN/GLOBULIN RATIO 1.5 (1.0-2.7); ANION GAP 10 (5-15); ASPARTATE AMINO TRANSFERASE 26 U/L (5-40); CALCIUM 9.2 mg/dL (8.6-10.2); CARBON DIOXIDE 32 mEQ/L (20-30); CHLORIDE 90 mEQ/L (98-107); CREATININE 0.8 mg/dL (0.5-0.9); HEMOLYSIS 9; POTASSIUM 4.1 mEQ/L (3.4-4.9); SODIUM 132 mEQ/L (135-145); TOTAL PROTEIN 6.7 g/dL (6.6-8.7)
--- NOTE | 2017-02-21 16:47 | History & Physical ---
History and Physical History & Physicial History and Physical History & Physicial CC: cannot urinate HISTORY OF PRESENT ILLNESS: Patient is a 82-year-old woman who was admitted through the emergency department. She came in complaining of unable to urinate. A Cagle was placed and she is passing clear urine. She was in ER last mo for gross hematuria and a CT showed a bladder mass. She was instructed to see urology but has no transportation. PAST MEDICAL HISTORY: Hypertension, COPD, rectal cancer with colostomy. 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 She had a stroke with good recovery in 1998. She was admitted for SBO in past. ALLERGIES: HYDROCHLOROTHIAZIDE, MOXIFLOXACIN, TRIAMTERENE. FAMILY HISTORY: Negative for cardiac disease. MEDICATIONS: Reviewed and reconciled. REVIEW OF SYSTEMS: She has no personal history of cardiac disease. There is no chest pain. She has pedal edema. She has no nausea, vomiting or diarrhea. She does complain of joint pain. PHYSICAL EXAMINATION: GENERAL: The patient is alert and responsive. She is overweight. She is in no distress. VITAL SIGNS: Sinus rhythm, VS stable, no fever HEENT: Head is normocephalic. NECK: Not distended. CHEST: Decreased air entry with no wheezing. CARDIAC: Rhythm is regular ABDOMEN: Soft and nontender, colostomy is in place. EXTREMITIES: no edema. Cagle placed in ER; clear urine CXR COPD IMPRESSION: 1. urinary retention, bladder mass 2. COPD 3. Hyperlipidemia 4. History of colorectal cancer with colostomy. 5. Hypertension. 6. Lung mass Plan: urology consult Cagle CT chest RIAZ FRAGOSO Feb 21, 2017 16:47
[2017-02-21 17:00] VITALS: BP 133/76
[2017-02-21 18:30] VITALS: BP 138/80
[2017-02-21 20:58] VITALS: BP 130/77
[2017-02-21] MEDS: Atorvastatin 20mg tab ORAL SCH (21:04)
[2017-02-21] MEDS: Advair 250/50 Inhaler - 14 dose INH SCH (21:21)
[2017-02-22] VITALS (7 sets, daily range): BP systolic 111–136; BP diastolic 62–92
[2017-02-22] MEDS: PredniSONE 5mg tab ORAL SCH (08:41)
[2017-02-22] MEDS: Diltiazem CD 180mg cap ORAL SCH (08:41)
[2017-02-22] MEDS: Lisinopril 20mg tab ORAL SCH (08:41)
--- NOTE | 2017-02-22 08:59 | Diagnostic Imaging Report ---
Indication: Chest pain. Mass within the lung on prior CT. Technique: Continuous helical transaxial imaging of the chest was obtained from the thoracic inlet to the upper abdomen after intravenous nonionic contrast administration. Coronal 2-D reformats were also obtained. Total Dose length Product (DLP): [address] Dose Index Volume (CTDIvol): 0.15, 8.1, 113.56, 14.96 mGy Comparison: CT abdomen 08/12/15 Findings: There are no previous CT chest for comparison. CT abdomen from 08/12/15 had demonstrated a spiculated nodule posterior medial right lung base. This is only partially seen on the prior CT abdomen. As visualized the finding is probably unchanged keeping in mind that were only evaluating a part of the lesion on the prior study. On the current exam the one spiculated nodule is seen as well as 2 additional nodules adjacent A. Each of the nodules is less than a centimeter in size and the findings are probably inflammatory. Followup is suggested in 6 months per Fleischner Society criteria. The nodules are seen in the posterior medial aspect of the right lower lobe (for example image 36 of series 6). The statement on the preliminary reading by [employer] is incorrect that these are in the middle lobe. Additionally, there are a few areas of reticular density and some thickening of the anteromedial lower aspect of the major fissure on the right. There is calcification of the tracheobronchial tree. The heart is normal in size. There are moderate constipation involving the coronary arteries and aorta. There is no aneurysm or evidence of dissection involving the aorta. This no pleural or pericardial effusions identified. No adenopathy seen within the chest. Visualized part of the upper abdomen shows a prominent right renal pelvis which had a similar configuration on the previous study. Partial visualization of an IVC filter noted. Tiny hypodensities are present in the liver too small to characterize adequately on this examination but grossly unchanged from the prior exam. There is a mild compression fracture deformity of the T2 vertebra with a mild loss of height noted. The age of the fracture is not known. Please correlate clinically. MR or bone scan can determine acuity if needed. Impression: Clustered less than 1 cm nodular foci posterior medial right lower lobe. These were incompletely visualized on the previous CT abdomen 08/12/15, but likely post inflammatory. Recommend [address] chest. Atherosclerotic disease Right extrarenal pelvis IVC filter Hypodensities in the liver too small to characterize adequately. Age indeterminant, mild T2 vertebral compression fracture. The CT scanner at [facility] is accredited by the [employer] and the scans are performed using dose optimization techniques as appropriate to a performed exam including Automatic Exposure control.
[2017-02-22] MEDS: Advair 250/50 Inhaler - 14 dose INH SCH ×2 (09:25→21:19)
--- NOTE | 2017-02-22 14:01 | General Progress Note ---
Assessment/Plan Assessment/Plan IMPRESSION: 1. urinary retention, bladder mass 2. COPD 3. Hyperlipidemia 4. History of colorectal cancer with colostomy. 5. Hypertension. 6. Lung mass CT chest with probable inflammatory nodules; repeat 6 mo await urology consult cysto likely needed Subjective ROS Limited/Unobtainable: No Constitutional: Denies: fever Respiratory: Reports: SOB with excertion Allergies: Coded Allergies: MOXIFLOXACIN HCL (Verified Allergy, Intermediate, Rash, 04/08/12) HYDROCHLOROTHIAZIDE (Verified Adverse Reaction, Intermediate, HYPONATEREMIA, 03/22/13) TRIAMTERENE (Verified Adverse Reaction, Intermediate, HYPONATEREMIA, ) Objective Last 24 Hour Vital Signs Date Time Temp Pulse Resp B/P (MAP) Pulse Ox O2 Delivery O2 Flow Rate FiO2 02/22/17 11:57 98.2 79 20 132/73 92 Nasal Cannula 2.0 02/22/17 09:27 103 20 93 Nasal Cannula 2.0 02/22/17 09:26 103 18 93 Nasal Cannula 2.0 02/22/17 08:41 135/90 02/22/17 08:41 105 135/90 02/22/17 07:59 97.9 105 20 135/90 94 Nasal Cannula 02/22/17 04:00 98.2 73 19 125/65 97 Nasal Cannula 2.0 02/22/17 00:00 98.2 69 20 136/62 94 Room Air 02/21/17 21:22 88 20 94 Room Air 02/21/17 21:21 88 20 94 Room Air 02/21/17 20:58 98.8 88 20 130/77 91 Room Air 02/21/17 18:30 97.7 102 21 138/80 92 Room Air 02/21/17 18:07 80 16 128/77 98 Room Air 02/21/17 17:00 98.7 78 18 133/76 100 Room Air Intake and Output 02/22/17 02/23/17 19:00 07:00 Intake Total 600 ml Balance 600 ml Intake Oral 600 ml # Bowel Movements 2 Laboratory Tests 02/21/17 15:22: White Blood Count 11.1H, Red Blood Count 4.90, Hemoglobin 15.7, Hematocrit 46.9 , Mean Corpuscular Volume 96, Mean Corpuscular Hemoglobin 32.0H, Mean Corpuscular Hemoglobin Concent 33.4, Red Cell Distribution Width 11.5L, Platelet Count 177, Mean Platelet Volume 6.0L, Neutrophils (%) (Auto) 79.6H, Lymphocytes (%) (Auto) 11.2L, Monocytes (%) (Auto) 8.4, Eosinophils (%) (Auto) 0.2, Basophils (%) (Auto) 0.6, Sodium Level 132L, Potassium Level 4.1, Chloride Level 90L, Carbon Dioxide Level 32H, Anion Gap 10, Blood Urea Nitrogen 7, Creatinine 0.8, Estimat Glomerular Filtration Rate , Glucose Level 116H, Calcium Level 9.2, Total Bilirubin 0.8, Aspartate Amino Transf (AST/SGOT) 26, Alanine Aminotransferase (ALT/SGPT) 23, Alkaline Phosphatase 73, Total Protein 6.7, Albumin 4.1, Globulin 2.6, Albumin/Globulin Ratio 1.5 Height (Feet): 4 Height (Inches): 11.00 Weight (Pounds): 109 General Appearance: no apparent distress Neck: supple Cardiovascular: normal rate Respiratory/Chest: decreased breath sounds Abdomen: non tender Objective Cagle, colostomy RIAZ FRAGOSO Feb 22, 2017 14:01
[2017-02-22] MEDS: Tamsulosin 0.4mg cap ORAL SCH (20:14)
[2017-02-22] MEDS: Atorvastatin 20mg tab ORAL SCH (20:14)
[2017-02-22] MEDS: Cephalexin 500mg cap ORAL SCH (20:14)
--- NOTE | 2017-02-23 02:45 | Consultation ---
DATE OF CONSULTATION: 02/22/2017 CONSULTING PHYSICIAN: Vinh Leonard M.D. REFERRING PHYSICIAN: Dallas Branch M.D. REASON FOR CONSULTATION: Evaluation of bladder mass. HISTORY OF PRESENT ILLNESS: This is a pleasant 82-year-old female, she was admitted to the hospital because of inability to urinate and retention. The Cagle catheter was placed in the emergency room yesterday. Some hematuria has been noted. She also has a history of a bladder mass, which was noted on the recent CT. Urology evaluation has been requested. The patient denies significant pain. PAST MEDICAL HISTORY: Significant for hypertension, chronic obstructive pulmonary disease, history of rectal cancer, history of DVT, asthma, acid reflux, hyperlipidemia, hepatitis C, and history of stroke. PAST SURGICAL HISTORY: She has had a colectomy with colostomy. CURRENT MEDICATIONS: In the hospital, the patient is on Cardizem, Lasix, Prinivil, prednisone, methadone, Synthroid, Lipitor, and Advair. ALLERGIES: Hydrochlorothiazide, moxifloxacin, and triamterene. SOCIAL HISTORY: She is currently a nonsmoker. FAMILY HISTORY: Noncontributory. REVIEW OF SYSTEMS: As above. PHYSICAL EXAMINATION: GENERAL: This is an elderly female, in no acute distress. VITAL SIGNS: Her temperature is 98.1 degrees, blood pressure 111/78, pulse 84, and respirations 20. HEENT: Normocephalic. NECK: Supple. ABDOMEN: Soft. There is a colostomy in place. BACK: No CVA tenderness. GENITOURINARY: There is a Cagle in place. Urine is dark yellow kathie. EXTREMITIES: No clubbing or cyanosis. LABORATORY DATA: Her UA on admit showed 5 to 10 WBCs. White count 11.1, hemoglobin 15.7, and platelets of 177,000. BUN is 7, creatinine 0.8, and potassium 4.1. There is no recent urine culture. DIAGNOSTIC IMAGING STUDIES: The patient had a CT scan of the abdomen and pelvis about a month ago and at that time, there was mention of a colostomy, which was in place. There was a IVC filter. There was mention of a 2.5 cm left-sided bladder wall mass. IMPRESSION: 1. Urinary retention. 2. Possible neurogenic bladder. 3. Bladder mass rule out malignancy. 4. Hematuria. 5. Pyuria. PLAN AND DISCUSSION: Again, the patient does have multiple issues including urinary retention, which could be secondary to atonic bladder or possible urethral stenosis. At this time, I will add Flomax 0.4 mg as voiding trial in the near future. She also has a possible bladder mass and she will need to have a cystoscopy, which can potentially be done as an outpatient. She has also pyuria and I will order for urine culture and sensitivity and start her on empiric antibiotics. I will follow the patient and any other recommendations will be forthcoming. Thank you Dr. Branch for asking me to participate in this consultation. Vinh Leonard M.D. DR: SHANNON JOB#: [id number] CC:
[2017-02-23 03:47] VITALS: BP 113/51
[2017-02-23 07:13] LABS: BASOPHILS % (AUTO) 1.1 % (0.0-2.0); EOSINOPHILS % (AUTO) 1.8 % (0.0-3.0); LYMPHOCYTES % (AUTO) 21.2 % (20.0-45.0); MEAN CORPUSCULAR HEMOGLOBIN 33.1 PG (27.0-31.0); MEAN CORPUSCULAR VOLUME 97 FL (80-99); MEAN PLATELET VOLUME 6.4 FL (6.5-10.1); MONOCYTES % (AUTO) 11.7 % (1.0-10.0); NEUTROPHILS % (AUTO) 64.3 % (45.0-75.0); PLATELET COUNT 151 K/UL (150-450); RED BLOOD COUNT 4.16 M/UL (4.20-5.40); RED CELL DISTRIBUTION WIDTH 11.6 % (11.6-14.8); WHITE BLOOD COUNT 8.7 K/UL (4.8-10.8)
[2017-02-23 07:23] LABS: ALANINE AMINOTRANSFERASE 17 U/L (3-33); ALBUMIN/GLOBULIN RATIO 1.3 (1.0-2.7); ANION GAP 9 (5-15); ASPARTATE AMINO TRANSFERASE 23 U/L (5-40); CARBON DIOXIDE 32 mEQ/L (20-30); CHLORIDE 94 mEQ/L (98-107); CREATININE 0.7 mg/dL (0.5-0.9); HEMOLYSIS 11; POTASSIUM 4.2 mEQ/L (3.4-4.9); SODIUM 135 mEQ/L (135-145); TOTAL PROTEIN 5.7 g/dL (6.6-8.7)
[2017-02-23 08:07] VITALS: BP 121/65
[2017-02-23] MEDS: Diltiazem CD 180mg cap ORAL SCH (08:53)
[2017-02-23] MEDS: Lisinopril 20mg tab ORAL SCH (08:57)
[2017-02-23] MEDS: Advair 250/50 Inhaler - 14 dose INH SCH ×2 (09:00→20:56)
[2017-02-23] MEDS: PredniSONE 5mg tab ORAL SCH (09:18)
[2017-02-23] MEDS: Cephalexin 500mg cap ORAL SCH ×4 (09:18→20:00)
[2017-02-23 11:42] VITALS: BP 120/72
--- NOTE | 2017-02-23 11:57 | Urology Progress Note ---
Assessment/Plan Assessment/Plan 1. Urinary retention. 2. Possible neurogenic bladder. 3. Bladder mass, rule out malignancy. 4. Hematuria. 5. Pyuria. mora indwelling irrigate PRN flomax abx f/u on urine cx voiding trial soon cysto later Subjective Allergies: Coded Allergies: MOXIFLOXACIN HCL (Verified Allergy, Intermediate, Rash, 04/08/12) HYDROCHLOROTHIAZIDE (Verified Adverse Reaction, Intermediate, HYPONATEREMIA, 03/22/13) TRIAMTERENE (Verified Adverse Reaction, Intermediate, HYPONATEREMIA, ) Subjective all noted Objective Last 24 Hour Vital Signs Date Time Temp Pulse Resp B/P (MAP) Pulse Ox O2 Delivery O2 Flow Rate FiO2 02/23/17 11:42 97.9 106 21 120/72 92 Nasal Cannula 2.0 02/23/17 09:02 101 18 92 Nasal Cannula 2.0 02/23/17 09:00 100 20 91 Nasal Cannula 2.0 02/23/17 08:07 97.7 105 20 121/65 93 Nasal Cannula 2.0 02/23/17 03:47 97.7 81 20 113/51 93 Room Air 02/22/17 23:27 97.9 71 20 112/70 95 Nasal Cannula 2.0 02/22/17 21:19 94 20 93 Room Air 02/22/17 21:19 93 18 93 Room Air 2.0 02/22/17 20:32 97.7 85 19 135/92 93 Room Air 02/22/17 15:48 98.0 84 20 111/70 92 Nasal Cannula 2.0 Intake and Output 02/23/17 02/24/17 19:00 07:00 # Bowel Movements 2 Microbiology Date/Time Source Procedure Growth Status 02/22/17 18:41 Indwelling Cath Urine Culture - Preliminary NO GROWTH Resulted Current Medications Medications (Trade) Dose Ordered Sig/Hasmukh Route PRN Reason Start Time Stop Time Status Last Admin Dose Admin Atorvastatin Calcium (Lipitor) 20 mg QHS ORAL 02/21/17 21:00 03/23/17 20:59 02/22/17 20:14 Cephalexin (Keflex) 500 mg FOUR TIMES A DAY ORAL 02/22/17 21:00 03/01/17 20:59 02/23/17 09:18 Dextrose (Dextrose 50%) STAT PRN IV Hypoglycemia 02/21/17 19:45 03/23/17 19:44 Diltiazem HCl (Cardizem CD) 360 mg DAILY ORAL 02/22/17 09:00 03/24/17 08:59 02/22/17 08:41 Furosemide (Lasix) 20 mg DAILY ORAL 02/22/17 09:00 03/24/17 08:59 02/23/17 08:56 Levothyroxine Sodium (Synthroid) 100 mcg DAILY@0630 ORAL 02/22/17 06:30 03/24/17 06:29 02/23/17 06:24 Lisinopril (Prinivil) 20 mg DAILY ORAL 02/22/17 09:00 03/24/17 08:59 02/22/17 08:41 Methadone HCl (Methadone HCl) 50 mg DAILY ORAL 02/22/17 08:30 03/01/17 08:29 02/23/17 08:55 Prednisone (predniSONE) 10 mg DAILY ORAL 02/22/17 09:00 03/24/17 08:59 02/23/17 09:18 Salmeterol Xinafoate/ Fluticasone (Advair 250/50 Diskus) 1 puffs BID INH 02/21/17 21:00 03/23/17 20:59 02/23/17 09:00 Tamsulosin HCl (Flomax) 0.4 mg BEDTIME ORAL 02/22/17 21:00 03/24/17 20:59 02/22/17 20:14 Laboratory Tests 02/23/17 06:10: White Blood Count 8.7, Red Blood Count 4.16L, Hemoglobin 13.8, Hematocrit 40.5, Mean Corpuscular Volume 97, Mean Corpuscular Hemoglobin 33.1H, Mean Corpuscular Hemoglobin Concent 34.0, Red Cell Distribution Width 11.6, Platelet Count 151, Mean Platelet Volume 6.4L, Neutrophils (%) (Auto) 64.3, Lymphocytes (%) (Auto) 21.2, Monocytes (%) (Auto) 11.7H, Eosinophils (%) (Auto) 1.8, Basophils (%) ( Auto) 1.1, Sodium Level 135, Potassium Level 4.2, Chloride Level 94L, Carbon Dioxide Level 32H, Anion Gap 9, Blood Urea Nitrogen 11, Creatinine 0.7, Estimat Glomerular Filtration Rate , Glucose Level 94, Calcium Level 9.0, Total Bilirubin 0.6, Aspartate Amino Transf (AST/SGOT) 23, Alanine Aminotransferase ( ALT/SGPT) 17, Alkaline Phosphatase 61, Total Protein 5.7L, Albumin 3.3L, Globulin 2.4, Albumin/Globulin Ratio 1.3 Height (Feet): 4 Height (Inches): 11.00 Weight (Pounds): 109 Objective exam stable SABAGIOVANNI BRAXTON Feb 23, 2017 11:57
[2017-02-23] MEDS ORDERED: NS 550ML IV ONE (13:37)
--- NOTE | 2017-02-23 14:44 | Pulmonology Progress Note ---
Assessment/Plan Assessment/Plan 1. urinary retention, bladder mass 2. COPD 3. Hyperlipidemia 4. History of colorectal cancer with colostomy. 5. Hypertension. 6. Lung mass CT chest with probable inflammatory nodules; repeat 6 mo fu urology recommendations, mora for now ? voidign trial cysto likely needed no abx fu urine culture labs stable will need home health and consult pending Subjective Constitutional: Reports: no symptoms HEENT: Repors: no symptoms Respiratory: Reports: no symptoms Gastrointestinal/Abdominal: Reports: no symptoms Genitourinary: Reports: no symptoms Neurologic: Reports: no symptoms Allergies: Coded Allergies: MOXIFLOXACIN HCL (Verified Allergy, Intermediate, Rash, 04/08/12) HYDROCHLOROTHIAZIDE (Verified Adverse Reaction, Intermediate, HYPONATEREMIA, 03/22/13) TRIAMTERENE (Verified Adverse Reaction, Intermediate, HYPONATEREMIA, ) Subjective awake still with mora no cp nv or bleeding tolerating po awaiting urine cytology pending sample in am as well Objective Last 24 Hour Vital Signs Date Time Temp Pulse Resp B/P (MAP) Pulse Ox O2 Delivery O2 Flow Rate FiO2 02/23/17 11:42 97.9 106 21 120/72 92 Nasal Cannula 2.0 02/23/17 09:02 101 18 92 Nasal Cannula 2.0 02/23/17 09:00 100 20 91 Nasal Cannula 2.0 02/23/17 08:07 97.7 105 20 121/65 93 Nasal Cannula 2.0 02/23/17 03:47 97.7 81 20 113/51 93 Room Air 02/22/17 23:27 97.9 71 20 112/70 95 Nasal Cannula 2.0 02/22/17 21:19 94 20 93 Room Air 02/22/17 21:19 93 18 93 Room Air 2.0 02/22/17 20:32 97.7 85 19 135/92 93 Room Air 02/22/17 15:48 98.0 84 20 111/70 92 Nasal Cannula 2.0 Intake and Output 02/23/17 02/24/17 19:00 07:00 # Bowel Movements 2 General Appearance: WD/WN HEENT: atraumatic, anicteric Respiratory/Chest: lungs clear, normal breath sounds Cardiovascular: normal rate, regular rhythm Abdomen: soft, non tender, no organomegaly Extremities: no cyanosis, no clubbing Microbiology Date/Time Source Procedure Growth Status 02/22/17 18:41 Indwelling Cath Urine Culture - Preliminary NO GROWTH Resulted Laboratory Tests 02/23/17 06:10: White Blood Count 8.7, Red Blood Count 4.16L, Hemoglobin 13.8, Hematocrit 40.5, Mean Corpuscular Volume 97, Mean Corpuscular Hemoglobin 33.1H, Mean Corpuscular Hemoglobin Concent 34.0, Red Cell Distribution Width 11.6, Platelet Count 151, Mean Platelet Volume 6.4L, Neutrophils (%) (Auto) 64.3, Lymphocytes (%) (Auto) 21.2, Monocytes (%) (Auto) 11.7H, Eosinophils (%) (Auto) 1.8, Basophils (%) ( Auto) 1.1, Sodium Level 135, Potassium Level 4.2, Chloride Level 94L, Carbon Dioxide Level 32H, Anion Gap 9, Blood Urea Nitrogen 11, Creatinine 0.7, Estimat Glomerular Filtration Rate , Glucose Level 94, Calcium Level 9.0, Total Bilirubin 0.6, Aspartate Amino Transf (AST/SGOT) 23, Alanine Aminotransferase ( ALT/SGPT) 17, Alkaline Phosphatase 61, Total Protein 5.7L, Albumin 3.3L, Globulin 2.4, Albumin/Globulin Ratio 1.3 Current Medications Medications (Trade) Dose Ordered Sig/Hasmukh Route PRN Reason Start Time Stop Time Status Last Admin Dose Admin Atorvastatin Calcium (Lipitor) 20 mg QHS ORAL 02/21/17 21:00 03/23/17 20:59 02/22/17 20:14 Cephalexin (Keflex) 500 mg FOUR TIMES A DAY ORAL 02/22/17 21:00 03/01/17 20:59 02/23/17 12:29 Dextrose (Dextrose 50%) STAT PRN IV Hypoglycemia 02/21/17 19:45 03/23/17 19:44 Diltiazem HCl (Cardizem CD) 360 mg DAILY ORAL 02/22/17 09:00 03/24/17 08:59 02/22/17 08:41 Furosemide (Lasix) 20 mg DAILY ORAL 02/22/17 09:00 03/24/17 08:59 02/23/17 08:56 Levothyroxine Sodium (Synthroid) 100 mcg DAILY@0630 ORAL 02/22/17 06:30 03/24/17 06:29 02/23/17 06:24 Lisinopril (Prinivil) 20 mg DAILY ORAL 02/22/17 09:00 03/24/17 08:59 02/22/17 08:41 Methadone HCl (Methadone HCl) 50 mg DAILY ORAL 02/22/17 08:30 03/01/17 08:29 02/23/17 08:55 Prednisone (predniSONE) 10 mg DAILY ORAL 02/22/17 09:00 03/24/17 08:59 02/23/17 09:18 Salmeterol Xinafoate/ Fluticasone (Advair 250/50 Diskus) 1 puffs BID INH 02/21/17 21:00 03/23/17 20:59 02/23/17 09:00 Tamsulosin HCl (Flomax) 0.4 mg BEDTIME ORAL 02/22/17 21:00 03/24/17 20:59 02/22/17 20:14 ABBE VÁZQUEZ DO Feb 23, 2017 14:44
[2017-02-23 15:59] VITALS: BP 126/80
[2017-02-23 20:00] VITALS: BP 131/88
[2017-02-23] MEDS: Tamsulosin 0.4mg cap ORAL SCH (20:00)
[2017-02-23] MEDS: Atorvastatin 20mg tab ORAL SCH (20:00)
[2017-02-24] VITALS (7 sets, daily range): BP systolic 91–147; BP diastolic 47–85
[2017-02-24] MEDS: PredniSONE 5mg tab ORAL SCH (09:16)
[2017-02-24] MEDS: Lisinopril 20mg tab ORAL SCH (09:16)
[2017-02-24] MEDS: Cephalexin 500mg cap ORAL SCH ×4 (09:16→22:07)
[2017-02-24] MEDS: Diltiazem CD 180mg cap ORAL SCH (09:16)
--- NOTE | 2017-02-24 10:11 | Urology Progress Note ---
Assessment/Plan Assessment/Plan 1. Urinary retention. 2. Possible neurogenic bladder. 3. Bladder mass, rule out malignancy. 4. Hematuria. 5. Pyuria. mora indwelling irrigate PRN flomax abx f/u on urine cx voiding trial today monitor PVR and reinsert mora PRN cysto later Subjective Allergies: Coded Allergies: MOXIFLOXACIN HCL (Verified Allergy, Intermediate, Rash, 04/08/12) HYDROCHLOROTHIAZIDE (Verified Adverse Reaction, Intermediate, HYPONATEREMIA, 03/22/13) TRIAMTERENE (Verified Adverse Reaction, Intermediate, HYPONATEREMIA, ) Subjective all noted Objective Last 24 Hour Vital Signs Date Time Temp Pulse Resp B/P (MAP) Pulse Ox O2 Delivery O2 Flow Rate FiO2 02/24/17 09:16 147/81 02/24/17 09:16 99 147/81 02/24/17 07:48 98.4 99 20 147/81 96 Nasal Cannula 2.0 02/24/17 04:50 97.6 81 19 127/72 98 Nasal Cannula 3.0 02/24/17 00:34 97.9 100 18 130/85 97 Nasal Cannula 3.0 02/23/17 20:57 100 18 95 Nasal Cannula 2.0 28 02/23/17 20:56 100 20 95 Nasal Cannula 2.0 28 02/23/17 20:00 98.2 103 18 131/88 96 Nasal Cannula 3.0 02/23/17 15:59 98.2 106 20 126/80 93 Nasal Cannula 2.0 02/23/17 11:42 97.9 106 21 120/72 92 Nasal Cannula 2.0 Microbiology Date/Time Source Procedure Growth Status 02/22/17 18:41 Indwelling Cath Urine Culture - Preliminary Mixed Gram Positive Organism Resulted Current Medications Medications (Trade) Dose Ordered Sig/Hasmukh Route PRN Reason Start Time Stop Time Status Last Admin Dose Admin Atorvastatin Calcium (Lipitor) 20 mg QHS ORAL 02/21/17 21:00 03/23/17 20:59 02/23/17 20:00 Cephalexin (Keflex) 500 mg FOUR TIMES A DAY ORAL 02/22/17 21:00 03/01/17 20:59 02/24/17 09:16 Dextrose (Dextrose 50%) STAT PRN IV Hypoglycemia 02/21/17 19:45 03/23/17 19:44 Diltiazem HCl (Cardizem CD) 360 mg DAILY ORAL 02/22/17 09:00 03/24/17 08:59 02/24/17 09:16 Furosemide (Lasix) 20 mg DAILY ORAL 02/22/17 09:00 03/24/17 08:59 02/24/17 09:15 Levothyroxine Sodium (Synthroid) 100 mcg DAILY@0630 ORAL 02/22/17 06:30 03/24/17 06:29 02/24/17 05:49 Lisinopril (Prinivil) 20 mg DAILY ORAL 02/22/17 09:00 03/24/17 08:59 02/24/17 09:16 Methadone HCl (Methadone HCl) 50 mg DAILY ORAL 02/22/17 08:30 03/01/17 08:29 02/24/17 09:14 Prednisone (predniSONE) 10 mg DAILY ORAL 02/22/17 09:00 03/24/17 08:59 02/24/17 09:16 Salmeterol Xinafoate/ Fluticasone (Advair 250/50 Diskus) 1 puffs BID INH 02/21/17 21:00 03/23/17 20:59 02/23/17 20:56 Tamsulosin HCl (Flomax) 0.4 mg BEDTIME ORAL 02/22/17 21:00 03/24/17 20:59 02/23/17 20:00 Height (Feet): 4 Height (Inches): 11.00 Weight (Pounds): 109 Objective exam stable GIOVANNI SCHROEDER Feb 24, 2017 10:11
[2017-02-24] MEDS: Advair 250/50 Inhaler - 14 dose INH SCH ×2 (10:33→18:00)
[2017-02-24] MEDS ORDERED: DuoNeb 0.5-3(2.5)mg/3ml neb HHN PRN (13:00)
--- NOTE | 2017-02-24 19:26 | Pulmonology Progress Note ---
Assessment/Plan Assessment/Plan 1. urinary retention, bladder mass 2. COPD ? exacerbation 3. Hyperlipidemia 4. History of colorectal cancer with colostomy. 5. Hypertension. 6. Lung mass CT chest with probable inflammatory nodules; repeat 6 mo fu urology recommendations, doing well with voiding trial cysto likely needed as out pt on abx fu urine mixed gp labs stable will need home health and consult pending dc tentative in am Subjective HEENT: Repors: no symptoms Respiratory: Reports: no symptoms Cardiovascular: Reports: no symptoms Gastrointestinal/Abdominal: Reports: no symptoms Genitourinary: Reports: no symptoms Allergies: Coded Allergies: MOXIFLOXACIN HCL (Verified Allergy, Intermediate, Rash, 04/08/12) HYDROCHLOROTHIAZIDE (Verified Adverse Reaction, Intermediate, HYPONATEREMIA, 03/22/13) TRIAMTERENE (Verified Adverse Reaction, Intermediate, HYPONATEREMIA, ) Subjective awake mora removed ? hematuria noted complains of shortness of breath nebs are helpful remains on .suppe o2 no cp nv or bleeding tolerating po awaiting urine cytology pending sample in am as well Objective Last 24 Hour Vital Signs Date Time Temp Pulse Resp B/P (MAP) Pulse Ox O2 Delivery O2 Flow Rate FiO2 02/24/17 16:00 99.0 87 19 101/59 95 Nasal Cannula 2.0 02/24/17 13:43 108 20 Nasal Cannula 2.0 02/24/17 13:27 107 20 95 Nasal Cannula 2.0 02/24/17 13:25 105 20 Nasal Cannula 2.0 02/24/17 12:44 91/47 92 02/24/17 11:38 98.2 107 20 110/66 93 Nasal Cannula 2.0 02/24/17 10:00 103 20 97 Nasal Cannula 2.0 02/24/17 10:00 102 20 97 Nasal Cannula 2.0 02/24/17 09:16 147/81 02/24/17 09:16 99 147/81 02/24/17 07:48 98.4 99 20 147/81 96 Nasal Cannula 2.0 02/24/17 04:50 97.6 81 19 127/72 98 Nasal Cannula 3.0 02/24/17 00:34 97.9 100 18 130/85 97 Nasal Cannula 3.0 02/23/17 20:57 100 18 95 Nasal Cannula 2.0 02/23/17 20:56 100 20 95 Nasal Cannula 2.0 28 02/23/17 20:00 98.2 103 18 131/88 96 Nasal Cannula 3.0 Intake and Output 02/24/17 02/25/17 19:00 07:00 Intake Total 560 ml Output Total 1100 ml Balance -540 ml Intake Oral 560 ml Output Urine Total 1100 ml Post Void Residual 0 ml Bladder Scan Volume Amount 0 0 # Voids 1 # Bowel Movements 1 General Appearance: WD/WN HEENT: atraumatic, anicteric Respiratory/Chest: rhonchi Cardiovascular: normal rate, regular rhythm Abdomen: normal bowel sounds, no organomegaly Extremities: no cyanosis, no clubbing Skin: no rash, no lesions Neurologic/Psychiatric: no motor/sensory deficits, oriented x 3 Musculoskeletal: no effusion Microbiology Date/Time Source Procedure Growth Status 02/22/17 18:41 Indwelling Cath Urine Culture - Preliminary Mixed Gram Positive Organism Resulted Current Medications Medications (Trade) Dose Ordered Sig/Hasmukh Route PRN Reason Start Time Stop Time Status Last Admin Dose Admin Albuterol/ Ipratropium (DuoNeb 0.5-3(2.5)mg/3ml) 3 ml Q4H PRN HHN Shortness of Breath 02/24/17 13:00 03/01/17 12:59 02/24/17 13:38 Atorvastatin Calcium (Lipitor) 20 mg QHS ORAL 02/21/17 21:00 03/23/17 20:59 02/23/17 20:00 Cephalexin (Keflex) 500 mg FOUR TIMES A DAY ORAL 02/22/17 21:00 03/01/17 20:59 02/24/17 18:22 Dextrose (Dextrose 50%) STAT PRN IV Hypoglycemia 02/21/17 19:45 03/23/17 19:44 Diltiazem HCl (Cardizem CD) 360 mg DAILY ORAL 02/22/17 09:00 03/24/17 08:59 02/24/17 09:16 Furosemide (Lasix) 20 mg DAILY ORAL 02/22/17 09:00 03/24/17 08:59 02/24/17 09:15 Levothyroxine Sodium (Synthroid) 100 mcg DAILY@0630 ORAL 02/22/17 06:30 03/24/17 06:29 02/24/17 05:49 Lisinopril (Prinivil) 20 mg DAILY ORAL 02/22/17 09:00 03/24/17 08:59 02/24/17 09:16 Methadone HCl (Methadone HCl) 50 mg DAILY ORAL 02/22/17 08:30 03/01/17 08:29 02/24/17 09:14 Prednisone (predniSONE) 10 mg DAILY ORAL 02/22/17 09:00 03/24/17 08:59 02/24/17 09:16 Salmeterol Xinafoate/ Fluticasone (Advair 250/50 Diskus) 1 puffs BID INH 02/21/17 21:00 03/23/17 20:59 02/24/17 10:33 Tamsulosin HCl (Flomax) 0.4 mg BEDTIME ORAL 02/22/17 21:00 03/24/17 20:59 02/23/17 20:00 ABBE VÁZQUEZ DO Feb 24, 2017 19:26
[2017-02-24] MEDS: DuoNeb 0.5-3(2.5)mg/3ml neb HHN SCH ×2 (19:30→23:32)
[2017-02-24] MEDS: Tamsulosin 0.4mg cap ORAL SCH (22:06)
[2017-02-24] MEDS: Atorvastatin 20mg tab ORAL SCH (22:07)
[2017-02-25] VITALS: BP 109/59
[2017-02-25] MEDS: DuoNeb 0.5-3(2.5)mg/3ml neb HHN SCH ×2 (03:01→07:19)
[2017-02-25 04:00] VITALS: BP 87/58
[2017-02-25 05:14] LABS: BASOPHILS % (AUTO) 0.8 % (0.0-2.0); EOSINOPHILS % (AUTO) 2.3 % (0.0-3.0); LYMPHOCYTES % (AUTO) 24.2 % (20.0-45.0); MEAN CORPUSCULAR HGB CONC 33.6 G/DL (32.0-36.0); MEAN CORPUSCULAR VOLUME 95 FL (80-99); MEAN PLATELET VOLUME 6.7 FL (6.5-10.1); MONOCYTES % (AUTO) 12.8 % (1.0-10.0); NEUTROPHILS % (AUTO) 59.9 % (45.0-75.0); PLATELET COUNT 175 K/UL (150-450); RED CELL DISTRIBUTION WIDTH 11.4 % (11.6-14.8); WHITE BLOOD COUNT 6.6 K/UL (4.8-10.8)
[2017-02-25 05:38] LABS: ANION GAP 8 (5-15); CALCIUM 8.8 mg/dL (8.6-10.2); CARBON DIOXIDE 33 mEQ/L (20-30); CHLORIDE 93 mEQ/L (98-107); CREATININE 0.9 mg/dL (0.5-0.9); HEMOLYSIS 5; POTASSIUM 4.3 mEQ/L (3.4-4.9); SODIUM 134 mEQ/L (135-145)
[2017-02-25 08:13] VITALS: BP 100/45
[2017-02-25] MEDS: PredniSONE 5mg tab ORAL SCH (08:15)
[2017-02-25] MEDS: Cephalexin 500mg cap ORAL SCH (08:15)
[2017-02-25 08:18] VITALS: BP 100/45
[2017-02-25] MEDS: Lisinopril 20mg tab ORAL SCH (08:18)
[2017-02-25] MEDS: Diltiazem CD 180mg cap ORAL SCH (08:18)
[2017-02-25] MEDS ORDERED: FLOMAX0.4 MG ORAL (08:36)
--- NOTE | 2017-02-25 09:08 | Urology Progress Note ---
Assessment/Plan Assessment/Plan 1. Urinary retention. 2. Possible neurogenic bladder. 3. Bladder mass, rule out malignancy. 4. Hematuria. 5. Pyuria. mora out and voiding flomax abx plan for cysto d/w Dr. Branch Subjective Allergies: Coded Allergies: MOXIFLOXACIN HCL (Verified Allergy, Intermediate, Rash, 04/08/12) HYDROCHLOROTHIAZIDE (Verified Adverse Reaction, Intermediate, HYPONATEREMIA, 03/22/13) TRIAMTERENE (Verified Adverse Reaction, Intermediate, HYPONATEREMIA, ) Subjective all noted, mora removed yest, voiding, PVR zero cc by report, mild hematuria Objective Last 24 Hour Vital Signs Date Time Temp Pulse Resp B/P (MAP) Pulse Ox O2 Delivery O2 Flow Rate FiO2 02/25/17 08:18 100/45 02/25/17 08:18 81 100/45 02/25/17 08:13 96.6 81 22 100/45 95 Nasal Cannula 2.0 02/25/17 07:20 73 18 Nasal Cannula 2.0 02/25/17 07:19 73 18 95 Nasal Cannula 2.0 02/25/17 04:00 98.7 61 17 87/58 97 Nasal Cannula 02/25/17 03:03 73 16 98 Nasal Cannula 2.0 02/25/17 00:00 99.1 71 20 109/59 97 Nasal Cannula 2.0 02/24/17 23:36 68 18 99 Nasal Cannula 2.0 02/24/17 23:29 28 02/24/17 23:29 70 18 Nasal Cannula 2.0 02/24/17 23:29 70 18 98 Room Air 2.0 02/24/17 20:00 99.0 71 20 98/59 97 Nasal Cannula 2.0 02/24/17 16:00 99.0 87 19 101/59 95 Nasal Cannula 2.0 02/24/17 13:43 108 20 Nasal Cannula 2.0 02/24/17 13:27 107 20 95 Nasal Cannula 2.0 02/24/17 13:25 105 20 Nasal Cannula 2.0 02/24/17 12:44 91/47 92 02/24/17 11:38 98.2 107 20 110/66 93 Nasal Cannula 2.0 02/24/17 10:00 103 20 97 Nasal Cannula 2.0 02/24/17 10:00 102 20 97 Nasal Cannula 2.0 02/24/17 09:16 147/81 02/24/17 09:16 99 147/81 Intake and Output 02/25/17 02/26/17 19:00 07:00 # Bowel Movements 1 Microbiology Date/Time Source Procedure Growth Status 02/22/17 18:41 Indwelling Cath Urine Culture - Final Mixed Gram Positive Organism Complete Current Medications Medications (Trade) Dose Ordered Sig/Hasmukh Route PRN Reason Start Time Stop Time Status Last Admin Dose Admin Albuterol/ Ipratropium (DuoNeb 0.5-3(2.5)mg/3ml) 3 ml Q4H HHN 02/24/17 19:30 03/01/17 12:59 02/24/17 23:32 Atorvastatin Calcium (Lipitor) 20 mg QHS ORAL 02/21/17 21:00 03/23/17 20:59 02/24/17 22:07 Cephalexin (Keflex) 500 mg FOUR TIMES A DAY ORAL 02/22/17 21:00 03/01/17 20:59 02/25/17 08:15 Dextrose (Dextrose 50%) STAT PRN IV Hypoglycemia 02/21/17 19:45 03/23/17 19:44 Diltiazem HCl (Cardizem CD) 360 mg DAILY ORAL 02/22/17 09:00 03/24/17 08:59 02/24/17 09:16 Furosemide (Lasix) 20 mg DAILY ORAL 02/22/17 09:00 03/24/17 08:59 02/25/17 08:16 Levothyroxine Sodium (Synthroid) 100 mcg DAILY@0630 ORAL 02/22/17 06:30 03/24/17 06:29 02/25/17 07:11 Lisinopril (Prinivil) 20 mg DAILY ORAL 02/22/17 09:00 03/24/17 08:59 02/24/17 09:16 Methadone HCl (Methadone HCl) 50 mg DAILY ORAL 02/22/17 08:30 03/01/17 08:29 02/25/17 08:15 Prednisone (predniSONE) 10 mg DAILY ORAL 02/22/17 09:00 03/24/17 08:59 02/25/17 08:15 Salmeterol Xinafoate/ Fluticasone (Advair 250/50 Diskus) 1 puffs BID INH 02/21/17 21:00 03/23/17 20:59 02/24/17 10:33 Tamsulosin HCl (Flomax) 0.4 mg BEDTIME ORAL 02/22/17 21:00 03/24/17 20:59 02/24/17 22:06 Laboratory Tests 02/25/17 04:40: White Blood Count 6.6, Red Blood Count 4.30, Hemoglobin 13.7, Hematocrit 40.9, Mean Corpuscular Volume 95, Mean Corpuscular Hemoglobin 32.0H, Mean Corpuscular Hemoglobin Concent 33.6, Red Cell Distribution Width 11.4L, Platelet Count 175, Mean Platelet Volume 6.7, Neutrophils (%) (Auto) 59.9, Lymphocytes (%) (Auto) 24.2, Monocytes (%) (Auto) 12.8H, Eosinophils (%) (Auto) 2.3, Basophils (%) ( Auto) 0.8, Sodium Level 134L, Potassium Level 4.3, Chloride Level 93L, Carbon Dioxide Level 33H, Anion Gap 8, Blood Urea Nitrogen 15, Creatinine 0.9, Estimat Glomerular Filtration Rate , Glucose Level 84, Calcium Level 8.8 Height (Feet): 4 Height (Inches): 11.00 Weight (Pounds): 109 Objective exam stable GIOVANNI SCHROEDER Feb 25, 2017 09:08
--- NOTE | 2017-02-25 17:54 | Physician Query ---
PLEASE COMPLETE THE DOCUMENT BEFORE SIGNING Dear Dr. Dallas Branch Date: Jan Latcher/CDS Name: DAMION Belle Latcher / CDS _ Exercise your independent professional judgment when responding to query. Question asked do not imply a particular answer is desired/expected Clinical Documentation States: 82-year-old female presents to the emergency department complaining of dysuria, urinary retention and hematuria x2 days. Clinical Findings: UA labs are attached: elevated WBC's and Leukocytes in the presence of few bacteria. there are squamous cells however due to elevated wbc's and leukocytes will treat for UTI. Please clarify if the patient has Urinary Tract Infection: Condition Present on Admission: [] Yes [] No []Clinically Undeterminable Please also document in your Progress Notes and/or Discharge Summary and indicate if the condition was present on admission. Dallas Branch MD [facility]
--- NOTE | 2017-02-26 12:25 | Discharge Summary ---
Discharge Summary Hospital Course Date of Admission Feb 21, 2017 at 15:26 Date of Discharge Feb 25, 2017 at 11:28 Admitting Diagnosis urinary retention HPI Sherley Recinos is a 82 year old female who was admitted on Feb 21, 2017 at 15: 26 for Urinary Retention Hospital Course dc summary #[id number] Discharge Medications New Medications: Tamsulosin HCl (Flomax) 0.4 Mg Cap.er.24h 0.4 MG ORAL BEDTIME, #90 CAP Continued Medications: Atorvastatin Calcium* (Lipitor*) 10 Mg Tablet 20 MG PO QHS Take one tablet by mouth at bedtime daily Diltiazem HCl (Diltiazem HCl) 90 Mg Tab 360 MG ORAL DAILY, TAB Fluticasone/Salmeterol (Advair 500-50 Diskus) 1 Each Disk.w.dev 1 EACH IH BID Furosemide* (Lasix*) 20 Mg Tablet 20 MG ORAL DAILY, #30 TAB Ipratropium/Albuterol Sulfate (Combivent Inhaler) 14.7 Gm Aer.w.adap 2 PUFFS INH FOUR TIMES A DAY PRN for Shortness of Breath Levothyroxine Sodium* (Synthroid*) 75 Mcg Tablet 100 MCG PO DAILY, TAB Take 1 tablet by mouth every day. Lisinopril (Lisinopril*) 20 Mg Tablet 20 MG ORAL BID, TAB 0 Refills Methadone Hcl* (Methadone*) 5 Mg Tablet 50 MG PO DAILY, TAB 0 Refills Omeprazole (Omeprazole) 40 Mg Capsule.dr 40 MG ORAL DAILY PRN for Nausea & Vomiting, CAP 0 Refills Prednisone (Prednisone) 10 Mg Tab.ds.pk 10 MG PO QD for 10 Days, #10 PACK Discontinued Medications: Cephalexin* (Keflex*) 500 Mg Capsule 500 MG ORAL Q6H, #28 CAP 0 Refills Furosemide* (Lasix*) 40 Mg Tablet 40 MG ORAL DAILY, TAB Discharge Condition Upon Discharge: stable Discharge Disposition Patient was discharged to Home with Home Health(06) Discharge Diagnoses: Discharge Instructions Discharge Instructions Special Instructions I have been assigned to complete a D/C Summary on this account. I was not involved in the patient management Kate Beltran NP (Vanchtein) Feb 26, 2017 12:25
--- NOTE | 2017-02-26 15:53 | Cardiology Report ---
APPROVED REPORT EKG Measurement Heart [id number] Normal sinus rhythm Normal ECG
--- NOTE | 2017-02-27 04:45 | Discharge Summary 2 SIG ---
DATE OF ADMISSION: 02/21/2017 DATE OF DISCHARGE: 02/25/2017 REASON FOR ADMISSION: The patient is an 82-year-old female, came to emergency room complaining of dysuria, urinary retention, and hematuria for two days. She denied nausea, vomiting, fevers, or chills. She denied abdominal pain or bladder distention. The patient recently finished prescription for Keflex. She was unable to follow up with referral to Dr. Ramsey as she does not have any transportation. The patient with a past medical history significant of hypertension, COPD, rectal cancer with colostomy, history of DVT, asthma, acid reflux, hyperlipidemia, chronic liver disease secondary to hepatitis C, history of CVA, and history of small bowel obstruction. In the emergency department, Cagle catheter was placed in with 150 mL of fluid coming out. The patient was given 500 mL of normal saline. Sodium was 132 for correction of electrolytes. Chest x-ray findings were consistent with COPD. Urinalysis revealed pyuria and +2 leukocyte esterase, but only few bacteria. The patient was admitted for further management. ADMITTING DIAGNOSES: Include, 1. Acute urinary retention. 2. Bladder mass. 3. Possible urinary tract infection. 4. Chronic obstructive pulmonary disease. 5. Hyperlipidemia. 6. History of colorectal carcinoma with colostomy. 7. Hypertension. HOSPITAL STAY: The patient was admitted. The patient was on the IV fluids and empiric antibiotics. Urine culture revealed mixed gram-positive organism with colony count 10 to 20. Antibiotic discontinued. The patient was on supplemental oxygen and pulmonary toilet to keep saturation above 92%. Respiratory status stable. CT of the chest revealed cluster less than 1 cm nodular foci posterior medial right lower lobe likely representing inflammatory changes. However, follow up in six months was recommended. Urologist seen and evaluated the patient. Urologist concluded that in addition to acute urinary retention the patient might have also possible neurogenic bladder. He recommended outpatient cystoscopy. Flomax was started. She need a cystoscopy for workup of the bladder mass that can be done as outpatient. The patient's home medications were continued. The patient was stable for transfer home with home health services. FINAL DIAGNOSES: Include, 1. Acute urinary retention, possible neurogenic bladder. 2. Chronic obstructive pulmonary disease. 3. Bladder mass, rule out malignancy. 4. Hyperlipidemia. 5. History of colorectal carcinoma with colostomy. 6. Hypertension. DISCHARGE INSTRUCTIONS: The patient was discharged home with home health services. FOLLOWUP: Follow up with the urologist for outpatient cystoscopy. DISCHARGE MEDICATIONS: The patient's home medications were resumed. Continue statin, Cardizem, MARISOL inhibitor, Lasix, pain management, and the patient on maintenance dose of methadone. The patient is stable for discharge. Dallas Branch M.D. I have been assigned to dictate discharge summary on this account and I was not involved in the patient's management. Kate gutierresGanesh lopez DR: SHERI JOB#: [id number] CC:
== END 2017-02-25 11:28 | disposition home health service (06) | DRG 699 ==
LOC: EDBD 12:18 → EMR 13:40 → 4E 15:26 → EDBEDREQ 16:36 → 3E 02-24 15:24
DX: N31.9 Neuromuscular dysfunction of bladder, unspecified (principal); N39.0 Urinary tract infection, site not specified; F11.20 Opioid dependence, uncomplicated; C67.9 Malignant neoplasm of bladder, unspecified; R33.8 Other retention of urine; J44.9 Chronic obstructive pulmonary disease, unspecified; R31.9 Hematuria, unspecified; I10 Essential (primary) hypertension; E78.5 Hyperlipidemia, unspecified; Z85.038 Personal history of other malignant neoplasm of large intestine; R91.8 Other nonspecific abnormal finding of lung field; Z86.73 Personal history of transient ischemic attack (TIA), and cerebral infarction without residual deficits; Z86.718 Personal history of other venous thrombosis and embolism; Z88.1 Allergy status to other antibiotic agents; Z91.09 Other allergy status, other than to drugs and biological substances; K21.9 Gastro-esophageal reflux disease without esophagitis; B18.2 Chronic viral hepatitis C
CPT/HCPCS: 36415; 51702; 71010; 71260; 80048; 80053; 81003; 85025; 87086; 88104; 93005; 94640; 94664; 99285; J7620

== ENCOUNTER 2017-03-01 10:02 | Inpatient (IN) | payer MEDICARE, OTHER ==
[~2017-03-01] VITALS: Ht 154.9 cm; Wt 63.5 kg
[2017-03-01] VITALS (11 sets, daily range): BP systolic 104–146; BP diastolic 63–86
[~2017-03-01 10:02] MED LIST changes: +FLOMAX0.4 MG ORAL; +Gentamicin 120mg/100ml NS INJ 100 ML IVPB ONE; +ceFAZolin 1gm/50ml Premix 50 ML IV ONE
[2017-03-01] MEDS ORDERED: TAMSULOSIN HCL0.4 MG ORAL (10:44)
--- NOTE | 2017-03-01 12:11 | Anethesia Preoperative Eval ---
Anesthesia Pre-op PMH/ROS General Date of Evaluation: Mar 01, 2017 Time of Evaluation: 12:01 Anesthesiologist: Isabell ASA Score: ASA 4 Mallampati Score Class I : Soft palate, uvula, fauces, pillars visible Class II: Soft palate, uvula, fauces visible Class III: Soft palate, base of uvula visible Class IV: Only hard plate visible Mallampati Classification: Class II Surgeon: Aisha Diagnosis: Bladder tumor, hematuria Surgical Procedure: cysto, retrograde pyelo, TURB Anesthesia History: none Family History: no anesthesia problems Allergies: Coded Allergies: MOXIFLOXACIN HCL (Verified Allergy, Intermediate, Rash, 04/08/12) HYDROCHLOROTHIAZIDE (Verified Adverse Reaction, Intermediate, HYPONATEREMIA, 03/22/13) TRIAMTERENE (Verified Adverse Reaction, Intermediate, HYPONATEREMIA, ) Medications: see eMAR Past Medical History Cardiovascular: Reports: HTN, CAD, other - PVD, PAD Pulmonary: Reports: asthma, COPD, other - PNA Gastrointestinal/Genitourinary: Reports: GERD, other - HEMATURIA Neurologic/Psychiatric: Reports: CVA Endocrine: Reports: hypothyroidism Hematology/Immune: Reports: DVT Other: other - COLORECTAL CA PSxH Narrative: CEA Anesthesia Pre-op Phys. Exam Physician Exam Last Vital Signs Date Time Temp Pulse Resp B/P (MAP) Pulse Ox O2 Delivery O2 Flow Rate FiO2 03/01/17 10:52 97.5 92 18 129/66 92 Room Air Constitutional: NAD Cardiovascular: RRR Respiratory: other - SHALLOW BREATHING, LOW BASELINE O2 SATURATION Gastrointestinal: other - COLOSTOMY IN PLACE Airway Exam Mallampati Score: Class I MO: limited Dentures: upper, lower Anesthesia Pre-op A/P Risk Assessment & Plan Assessment: ASA 4 Plan: Mayra Salazar M.D. Mar 01, 2017 12:11
[2017-03-01] MEDS ORDERED: Iothalamate Meglumine 60% 30ML INJ ONE (12:25)
[2017-03-01] MEDS ORDERED: Dexamethasone 4mg/ml vial ONE (12:30)
[2017-03-01] MEDS ORDERED: Depo-Medrol 40mg Inj ONE (12:30)
[2017-03-01] MEDS ORDERED: LR 1000ml ONE (12:30)
[2017-03-01] MEDS ORDERED: ePHEDrine 50mg/ml Inj ONE (12:30)
[2017-03-01] MEDS ORDERED: Alfentanil 2ml Inj ONE (12:30)
[2017-03-01] MEDS ORDERED: Propofol 200mg/20ml IV ONE (12:30)
[2017-03-01] MEDS ORDERED: Sterile Water Irrig 1000ml IRRIG ONE (12:30)
[2017-03-01] MEDS ORDERED: fentaNYL 100 mcg/2 mL IV ONE (12:30)
[2017-03-01] MEDS ORDERED: Sterile Water For Irrig 2000ml IRRIG ONE (12:30)
--- NOTE | 2017-03-01 12:38 | Pre-Procedure Note/Attestation ---
Pre-Procedure Note/Attestation Complete Prior to Procedure Planned Procedure: bilateral Procedure Narrative: cysto, bladder biopsy, TURBT, bilateral retrogrades Indications for Procedure Pre-Operative Diagnosis: bladder tumor Attestation I attest that I discussed the nature of the procedure; its benefits; risks and complications; and alternatives (and the risks and benefits of such alternatives ), prior to the procedure, with the patient (or the patient's legal merchandising representative). I attest that, if there was a reasonable possibility of needing a blood transfusion, the patient (or the patient's legal merchandising representative) was given the [facility] standardized written summary, pursuant to the Ryan Marlen Blood Safety Act ([place] Health and Safety Code # 1645, as amended). I attest that I re-evaluated the patient just prior to the surgery and that there has been no change in the patient's H&P, except as documented below: n/a GIOVANNI SCHROEDER Mar 01, 2017 12:38
--- NOTE | 2017-03-01 12:38 | Urology Progress Note ---
Assessment/Plan Assessment/Plan bladder tumor hematuria hx urinary retention hx probable neurogenic bladder pyuria hx plan to proceed with surg medically cleared d/w pt fully risks etc d/w Dr. joaquin Subjective Allergies: Coded Allergies: MOXIFLOXACIN HCL (Verified Allergy, Intermediate, Rash, 04/08/12) HYDROCHLOROTHIAZIDE (Verified Adverse Reaction, Intermediate, HYPONATEREMIA, 03/22/13) TRIAMTERENE (Verified Adverse Reaction, Intermediate, HYPONATEREMIA, ) Subjective hx of hematuria bladder tumor for bladder biopsy, TURBT and retrogrades today PMH/chart all noted Objective Last 24 Hour Vital Signs Date Time Temp Pulse Resp B/P (MAP) Pulse Ox O2 Delivery O2 Flow Rate FiO2 03/01/17 10:52 97.5 92 18 129/66 92 Room Air Height (Feet): 5 Height (Inches): 1.00 Weight (Pounds): 140 Objective exam stable Preop labs noted GIOVANNI SCHROEDER Mar 01, 2017 12:38
--- NOTE | 2017-03-01 13:58 | Brief Operative Note ---
Immediate Post Operative Note Operative Note Pre-op Diagnosis: bladder tumor Procedure: cysto, bladder biopsies, bilateral retrograde pyelograms, TURBT Post-op Diagnosis: same as pre-op Findings: other - 2.5-3 cm tumor of the left lateral bladder wall, bilateral retrogrades no obvious filling defects Surgeon: snajana Anesthesiologist: paul Anesthesia: general Specimen: yes - random bladder biopsies and bladder tumor Complications: none Condition: stable Fluids: 1000 cc Estimated Blood Loss: minimal Drains: other - 18f mora Implant(s) used?: No GIOVANNI SCHROEDER Mar 01, 2017 13:58
--- NOTE | 2017-03-01 14:15 | Immediate Post-Op Evaluation ---
Immediate Post-Op Evalulation Immediate Post-Op Evalulation Procedure: cysto, retrograde pyelo, bladder bx, TURBT Date of Evaluation: Mar 01, 2017 Time of Evaluation: 14:03 IV Fluids: 500 Blood Pressure Systolic: 141 Blood Pressure Diastolic: 75 Pulse Rate: 85 Respiratory Rate: 18 O2 Sat by Pulse Oximetry: 99 Temperature (Fahrenheit): 97.3 Pain Score (1-10): 1 Nausea: No Vomiting: No Complications NONE Patient Status: awake Hydration Status: adequate Drug: CEFAZOLIN, GENTAMICIN 1257 Given Within 1 Hr of Incision: Yes Time Given: 12:57 Mayra Whyte M.D. Mar 01, 2017 14:15
--- NOTE | 2017-03-01 14:16 | 48 Hour Post Anesthesia Eval ---
Post Anesthesia Evaluation Procedure: cysto, retrograde pyelo, bladder bx, TURBT Date of Evaluation: Mar 01, 2017 Time of Evaluation: 14:15 Blood Pressure Systolic: 139 0: 85 Pulse Rate: 85 Respiratory Rate: 22 Temperature (Fahrenheit): 97.3 O2 Sat by Pulse Oximetry: 99 Airway: patent Nausea: No Vomiting: No Pain Intensity: 1 Hydration Status: adequate Mental Status/LOC: patient returned to baseline Follow-up care needed: N/A Mayra Whyte M.D. Mar 01, 2017 14:16
[2017-03-01] MEDS ORDERED: Hydromorphone 0.5mg/0.5ml inj IVP PRN (15:00)
--- NOTE | 2017-03-01 15:03 | Diagnostic Imaging Report ---
Indication: Retrograde pyelogram. History of tumor removal in the area of the urinary bladder. Comparison: None Findings: Multiple images demonstrating left-sided and right-sided ureteral injections showing both ureters. An IVC filter is noted. Multiple surgical clips in the pelvis demonstrated. The renal pelvis appears prominent in both kidneys. Findings consistent with extrarenal pelves. Impression: Retrograde pyelogram as described above
[2017-03-01] MEDS: Lisinopril 20mg tab ORAL SCH (17:11)
[2017-03-01] MEDS ORDERED: Tamsulosin 0.4mg cap ORAL SCH (21:00)
[2017-03-01] MEDS ORDERED: ceFAZolin sod 1 GM in D5W 55 ML IVPB SCH (21:00)
[2017-03-01] MEDS ORDERED: Atorvastatin 20mg tab ORAL SCH (21:00)
[2017-03-01] MEDS: ceFAZolin sod 1 GM in D5W 55 ML IVPB SCH (21:12)
[2017-03-02 04:00] VITALS: BP 109/69
[2017-03-02] MEDS: ceFAZolin sod 1 GM in D5W 55 ML IVPB SCH ×2 (05:54→13:53)
[2017-03-02 08:00] VITALS: BP 129/68
[2017-03-02] MEDS: Lisinopril 20mg tab ORAL SCH ×2 (08:58→09:00)
[2017-03-02] MEDS ORDERED: dilTIAZem HCl CD 180mg cap ORAL SCH (09:00)
--- NOTE | 2017-03-02 09:01 | Urology Progress Note ---
Assessment/Plan Assessment/Plan bladder tumor hematuria hx urinary retention hx probable neurogenic bladder pyuria hx POD #1, TURBT DC home today keep mora indwelling rx abx outpt f/u in office to remove mora d/w pt fully Subjective Allergies: Coded Allergies: MOXIFLOXACIN HCL (Verified Allergy, Intermediate, Rash, 04/08/12) HYDROCHLOROTHIAZIDE (Verified Adverse Reaction, Intermediate, HYPONATEREMIA, 03/22/13) TRIAMTERENE (Verified Adverse Reaction, Intermediate, HYPONATEREMIA, ) Subjective all noted, doing well Objective Last 24 Hour Vital Signs Date Time Temp Pulse Resp B/P (MAP) Pulse Ox O2 Delivery O2 Flow Rate FiO2 03/02/17 08:00 97.6 118 18 129/68 94 Nasal Cannula 3.0 03/02/17 04:00 97.9 85 20 109/69 94 Room Air 03/01/17 23:33 96.7 97 20 104/63 91 Nasal Cannula 03/01/17 20:08 98.0 107 20 112/70 95 Room Air 03/01/17 17:11 145/80 03/01/17 15:56 97.9 81 21 145/80 98 Nasal Cannula 2.0 03/01/17 14:55 97.8 84 19 133/82 100 Nasal Cannula 3.0 03/01/17 14:40 82 15 123/72 100 Nasal Cannula 3.0 03/01/17 14:25 83 11 137/81 100 Nasal Cannula 3.0 03/01/17 14:16 85 22 99 03/01/17 14:15 85 18 99 03/01/17 14:10 88 27 146/83 100 Nasal Cannula 3.0 03/01/17 14:00 100 21 139/86 99 Simple Mask 6.0 03/01/17 13:55 99 19 141/75 99 Simple Mask 6.0 03/01/17 13:51 97.5 90 18 139/86 100 Simple Mask 6.0 03/01/17 10:52 97.5 92 18 129/66 92 Room Air Current Medications Medications (Trade) Dose Ordered Sig/Hasmukh Route PRN Reason Start Time Stop Time Status Last Admin Dose Admin Acetaminophen (Tylenol) 650 mg Q4H PRN ORAL Mild Pain (Pain Scale 1-3) 03/01/17 15:00 03/31/17 14:59 Atorvastatin Calcium (Lipitor) 20 mg QHS ORAL 03/01/17 21:00 03/31/17 20:59 03/01/17 21:12 Cefazolin Sodium 1 gm/Dextrose 55 ml @ 110 mls/hr Q8HR IVPB 03/01/17 21:00 03/08/17 20:59 03/02/17 05:54 Dextrose (Dextrose 50%) STAT PRN IV Hypoglycemia 03/01/17 14:00 03/31/17 13:59 Diltiazem HCl (Cardizem CD) 360 mg DAILY ORAL 03/02/17 09:00 04/01/17 08:59 Hydromorphone HCl (Dilaudid) 0.5 mg Q6H PRN IVP Severe Pain (Pain Scale 7-10) 03/01/17 15:00 03/08/17 14:59 Levothyroxine Sodium (Synthroid) 100 mcg DAILY@0630 ORAL 03/02/17 06:30 04/01/17 06:29 Lisinopril (Prinivil) 20 mg BID ORAL 03/01/17 18:00 03/31/17 17:59 03/01/17 17:11 Methadone HCl (Methadone HCl) 50 mg DAILY ORAL 03/02/17 09:00 03/09/17 08:59 Tamsulosin HCl (Flomax) 0.4 mg BEDTIME ORAL 03/01/17 21:00 03/31/17 20:59 03/01/17 21:12 Height (Feet): 5 Height (Inches): 1.00 Weight (Pounds): 140 Objective exam stable, mora indwelling, urine grossly yellow, abdomen soft BAMSHAD,GIOVANNI Mar 02, 2017 09:01
[2017-03-02] MEDS ORDERED: Tubing IV Secondary IV ONE (09:48)
[2017-03-02] MEDS ORDERED: NS 275ml ONE (09:48)
[2017-03-02 12:00] VITALS: BP 96/54
--- NOTE | 2017-03-02 12:28 | Cardiology Report ---
APPROVED REPORT EKG Measurement Heart [id number] Sinus tachycardia Otherwise normal ECG
[2017-03-02] MEDS ORDERED: BACTRIM DS TAB1 EAC1 ORAL (15:46)
[2017-03-02 16:00] VITALS: BP 114/68
[2017-03-03] MEDS ORDERED: FUROSEMIDE40 MG ORAL (16:47)
[2017-03-03] MEDS ORDERED: PRILOSEC10 M1 ORAL (16:47)
--- NOTE | 2017-03-04 18:06 | Discharge Summary ---
Discharge Summary Hospital Course Date of Admission Mar 01, 2017 at 14:24 Date of Discharge Mar 02, 2017 at 18:21 Admitting Diagnosis HPI Sherley Recinos is a 82 year old female who was admitted on Mar 01, 2017 at 14: 24 for Bladder Tumor Hospital Course dc summary #[id number] Discharge Medications Continued Medications: Atorvastatin Calcium* (Lipitor*) 10 Mg Tablet 20 MG PO QHS Take one tablet by mouth at bedtime daily Diltiazem HCl (Diltiazem HCl) 90 Mg Tab 360 MG ORAL DAILY, TAB Fluticasone/Salmeterol (Advair 500-50 Diskus) 1 Each Disk.w.dev 1 EACH IH BID Ipratropium/Albuterol Sulfate (Combivent Inhaler) 14.7 Gm Aer.w.adap 2 PUFFS INH FOUR TIMES A DAY PRN for Shortness of Breath Levothyroxine Sodium* (Synthroid*) 75 Mcg Tablet 100 MCG PO BID, TAB Take 1 tablet by mouth every day. Lisinopril (Lisinopril*) 20 Mg Tablet 20 MG ORAL BID, TAB 0 Refills Methadone Hcl* (Methadone*) 5 Mg Tablet 50 MG PO DAILY, TAB 0 Refills Tamsulosin Hcl (Tamsulosin Hcl*) 0.4 Mg Cap.er.24h 0.4 MG ORAL BEDTIME, CAP Trimethoprim/Sulfamethoxazole 160/800* (Bactrim Ds Tablet*) 1 Each Tablet 1 TAB ORAL DAILY, #10 TAB Discharge Condition Upon Discharge: stable Discharge Disposition Patient was discharged to Home (01) Discharge Diagnoses: Discharge Instructions Discharge Instructions Special Instructions I have been assigned to complete a D/C Summary on this account. I was not involved in the patient management Kate Beltran NP (Vanchtein) Mar 04, 2017 18:06
--- NOTE | 2017-03-04 21:15 | Discharge Summary ---
DATE OF ADMISSION: 03/01/2017 DATE OF DISCHARGE: 03/02/2017 REASON FOR ADMISSION: 82-year-old female who was recently hospitalized from 02/21/2017 to 02/25/2017 for acute urinary retention. Patient with bladder mass found on imaging. Was advised to have elective cystoscopy. She presented for elective cystoscopy by Dr. Leonard. ADMITTING DIAGNOSES: 1. Bladder tumor. 2. History of urinary retention. 3. History of hematuria, 4. Probable neurogenic bladder. HOSPITAL COURSE: The patient subsequently undergone cystoscopy, bladder biopsy, bilateral retrograde pyelogram, and TURBT. Pain management was provided. Cagle catheter was kept in. Surgeon discussed with the patient the need to keep Cagle in. The patient will follow up with the surgeon as outpatient for removal of Cagle. Scripts for antibiotic provided. Vital signs were stable. The patient was stable for discharge. Due to rapid and unexpected improvement in patient's condition, the patient was discharged in one day. DISCHARGE DIAGNOSES: 1. Bladder tumor, 2. Status post cystoscopy, bladder biopsy, bilateral retrograde pyelogram, and transurethral resection of bladder tumor. 3. History of urinary retention. 4. History of hematuria. 5. Probable neurogenic bladder. DISCHARGE INSTRUCTION: The patient to follow up as outpatient with urologist as directed. DISCHARGE MEDICATIONS: See medication reconciliation list. Script provided for Bactrim. Vinh Leonard M.D. I have been assigned to dictate discharge summary on this account and I was not involved in the patient's management. Kate Beltran (Vanchtein) N.P. DR: Rhys JOB#: [id number] CC: VERO
--- NOTE | 2017-03-05 10:15 | Operative Note - Dictated ---
DATE OF OPERATION: 03/01/2017 PREOPERATIVE DIAGNOSIS: Bladder tumor. POSTOPERATIVE DIAGNOSIS: Bladder tumor. PROCEDURE PERFORMED: Cystoscopy with urethral calibration, bilateral retrograde pyelogram, random bladder biopsies, and transurethral resection of the bladder tumor. OPERATING SURGEON: Vinh Leonard M.D. ANESTHESIOLOGIST: Mayra Whyte M.D. ANESTHESIA: General. INDICATION FOR PROCEDURE: This is a pleasant 82-year-old female. She has a history of hematuria. She had a recent workup including the CT scan that showed a 2.5 cm bladder mass at left lateral wall. 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 As such, the above procedure was recommended. The nature of the procedure was discussed with the patient extensively in detail, possible risks of bleeding, infection, damage to the bladder, perforation, etc. No guarantees were given or implied. FINDINGS: The patient had a large bladder tumor about 2.5 cm involved in the left lateral wall bladder. The bladder is otherwise without tumor and patulous. Bilateral retrograde pyelogram did not show any filling defects. She did have x-ray of the pelvic without contrast. PROCEDURE IN DETAIL: An informed consent was obtained from the patient. The patient was brought to the operating room and placed in supine position. General anesthesia was induced. The patient was placed in a modified dorsal lithotomy position and genitalia was prepped and draped in the usual sterile fashion. Preoperative IV antibiotics were administered. Time-out was performed. The urethral meatus was gently dilated. The cystoscopy was then performed. I inspected the bladder carefully with the findings as above. At this point, the left ureteral orifice was cannulated with open-end catheter and retrograde pyelogram was done, which did not show any upper filling defects. There was extrarenal pelvis, however, the contrast did appear to drain with the injection of Lasix. A retrograde pyelogram was done on the left side with similar findings. No filling defects. At this point, using a cold cup biopsy forceps, random biopsies were taken from the right side of the . The biopsy site was cauterized . At this point, the was inserted and the . The tumor on the lateral side of the left side of the bladder was inspected down to the base. What appeared to be tumor was completely inspected. All the evacuated. The base of the tumor was extensively cauterized. Excellent hemostasis was obtained. Cagle catheter was placed. The patient was awakened and taken to the recovery room in stable condition. Blood loss was minimal. No complication. Vinh Leonard M.D. DR: SHANNON JOB#: [id number] CC: [place] M.D.; Fax#: [phone] [facility]
--- NOTE | 2017-04-02 17:33 | History & Physical ---
History and Physical History & Physicial History and Physical History & Physicial CC: bladder mass HISTORY OF PRESENT ILLNESS: Patient is a 82-year-old woman who was admitted for elective cysto and removal of bladder tumor. She had recent gross hematuria and urinary retention. PAST MEDICAL HISTORY: Hypertension, COPD, rectal cancer with colostomy. 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 She had a stroke with good recovery in 1998. She was admitted for SBO in past. ALLERGIES: HYDROCHLOROTHIAZIDE, MOXIFLOXACIN, TRIAMTERENE. FAMILY HISTORY: Negative for cardiac disease. MEDICATIONS: Reviewed and reconciled. REVIEW OF SYSTEMS: She has no personal history of cardiac disease. There is no chest pain. She has pedal edema. She has no nausea, vomiting or diarrhea. She does complain of joint pain. PHYSICAL EXAMINATION: GENERAL: The patient is alert and responsive. She is overweight. She is in no distress. VITAL SIGNS: Sinus rhythm, VS stable, no fever HEENT: Head is normocephalic. NECK: Not distended. CHEST: Decreased air entry with no wheezing. CARDIAC: Rhythm is regular ABDOMEN: Soft and nontender, colostomy is in place. EXTREMITIES: no edema. Cagle in place; clear urine CXR COPD IMPRESSION: 1. urinary retention, bladder mass 2. COPD 3. Hyperlipidemia 4. History of colorectal cancer with colostomy. 5. Hypertension. 6. Lung mass Plan: Cysto OK for surgery RIAZ FRAGOSO Mar 01, 2017 RIAZ FRAGOSO Apr 02, 2017 17:33
== END 2017-03-02 18:21 | disposition home or self-care (01) | DRG 670 ==
LOC: SUR 10:02 → 4E 14:24
PROC: 0TBB8ZX Excision of Bladder, Via Natural or Artificial Opening Endoscopic, Diagnostic (ICD-10-PCS; principal; 2017-03-01 12:30)
PROC: 0TBB8ZZ Excision of Bladder, Via Natural or Artificial Opening Endoscopic (ICD-10-PCS; principal; 2017-03-01 12:30)
PROC: BT14ZZZ Fluoroscopy of Kidneys, Ureters and Bladder (ICD-10-PCS; principal; 2017-03-01 12:30)
DX: C67.2 Malignant neoplasm of lateral wall of bladder (principal); J44.9 Chronic obstructive pulmonary disease, unspecified; N31.8 Other neuromuscular dysfunction of bladder; R33.9 Retention of urine, unspecified; E78.5 Hyperlipidemia, unspecified; Z85.038 Personal history of other malignant neoplasm of large intestine; I10 Essential (primary) hypertension
CPT/HCPCS: 74420; 76000; 93005; 94003; 94150; J3490

== ENCOUNTER 2017-03-03 16:20 | Emergency (ER) | payer MEDICARE, OTHER ==
[~2017-03-03] VITALS: Ht 154.9 cm; Wt 63.5 kg
[~2017-03-03 16:20] MED LIST changes: +BACTRIM DS TAB1 EAC1 ORAL; -Gentamicin 120mg/100ml NS INJ 100 ML IVPB ONE; +TAMSULOSIN HCL0.4 MG ORAL; -ceFAZolin 1gm/50ml Premix 50 ML IV ONE
[2017-03-03 16:40] VITALS: BP 111/72
[2017-03-03] MEDS ORDERED: PRILOSEC10 M1 ORAL (16:47)
[2017-03-03] MEDS ORDERED: FUROSEMIDE40 MG ORAL (16:47)
--- NOTE | 2017-03-03 16:50 | Emergency Room Report ---
History of Present Illness General Chief Complaint: Female Urogenital Problems Source: Patient Present Illness HPI 82-year-old female history of COPD, hypertension, has had a colostomy since 1972 , history of possible bladder cancer, status post cystoscopy and bladder biopsy on March 02, discharged from [place] yesterday, came to the emergency room for leaking Mora catheter. Patient states that fluid is dripping around the Mora but not getting into the back. Patient is denying any fever chills chest pain shortness breath abdominal pain or hematuria. Allergies: Coded Allergies: MOXIFLOXACIN HCL (Verified Allergy, Intermediate, Rash, 04/08/12) HYDROCHLOROTHIAZIDE (Verified Adverse Reaction, Intermediate, HYPONATEREMIA, 03/22/13) TRIAMTERENE (Verified Adverse Reaction, Intermediate, HYPONATEREMIA, ) Patient History Past Medical History: see triage record Past Surgical History: none Pertinent Family History: none Reviewed Nursing Documentation: PMH: Agreed, PSxH: Agreed Nursing Documentation-PMH Hx Hypertension: Yes Hx Asthma: Yes Hx COPD: Yes Hx Cancer: No Hx Gastrointestinal Problems: Yes Hx Neurological Problems: No Hx Cerebrovascular Accident: Yes Hx Transient Ischemic Attacks: No Hx Dementia: No Hx Alzheimer's Disease: No Hx Parkinson's Disease: No Hx Meningitis: No Hx Encephalitis: No Hx Seizures: No Hx Epilepsy: No Hx Multiple Sclerosis: No Hx Cerebral Palsy: No Hx Amyotrophic Lat Sclerosis: No Hx Guillian-Cornland Syndrome: No Hx Paralysis: No Hx Peripheral Neuropathy: No Hx Spinal Cord Injury: No Hx Head Trauma: No Hx Traumatic Brain Injury: No Hx Concentration Difficulty: No Hx Speech Problem: Yes - 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 Hx Tremors: No Hx Vertigo: No Hx Dizziness: No Hx Syncope: No Hx Headaches: No Hx Aphasia: No Hx Dysphasia: No Hx Numbness: No Hx Weakness: No Hx Fatigue: No Hx Neurologic Surgery: No Hx Brain Shunt: No Review of Systems All Other Systems: negative except mentioned in HPI Physical Exam Vital Signs Date Time Temp Pulse Resp B/P (MAP) Pulse Ox O2 Delivery O2 Flow Rate FiO2 03/03/17 16:28 99.0 95 20 121/62 87 Room Air Sp02 EP Interpretation: reviewed, abnormal, other - hypoxic on RA up to 98 on 2L General Appearance: normal inspection, well appearing, no apparent distress, alert, GCS 15, non-toxic Head: normocephalic, atraumatic Eyes: bilateral eye normal inspection, bilateral eye PERRL, bilateral eye EOMI ENT: normal ENT inspection, normal pharynx, normal voice, moist mucus membranes Neck: normal inspection, full range of motion, supple Respiratory: lungs clear, normal breath sounds, no respiratory distress, no retraction, no wheezing, speaking full sentences, chest symmetrical Cardiovascular #1: normal inspection, regular rate, rhythm, no edema, normal capillary refill Cardiovascular #2: 2+ radial (R), 2+ radial (L) Gastrointestinal: normal inspection, non tender, soft, non-distended, no guarding Genitourinary: other - mora with leg bag, yellow kathie clear urine Musculoskeletal: normal inspection, back normal, normal range of motion, non- tender Neurologic: normal inspection, alert, oriented x3, responsive, motor strength/ tone normal, sensory intact, normal gait, speech normal Psychiatric: normal inspection, judgement/insight normal, memory normal Skin: normal inspection, normal color, no rash, warm/dry, well hydrated, normal turgor Medical Decision Making ER Course 82 yo female with recent bladder surgery yesterday, coming in with urine leaking around Mora. No other complaints, such as abdominal pain or hematuria DDX: Mora malfunction Plan: Change Mora ER course: New mora insert now draining clear yellow urine without leakage around mora. leg bag applied Disposition: Patient is to be discharged to home. Patient is instructed to follow up with their primary care doctor within 5 days. Patient is instructed to follow up with urologist within 3 days. Strict return precautions discussed with patient such as fever, chills, abd pain pain, nausea, vomiting,hematuria which may indicate severe illness. Patient verbalizes understanding and agrees with plan. Please note that this Emergency Department Report was dictated using [employer] drill operator technology software, occasionally this can lead to erroneous entry secondary to interpretation by the dictation equipment Rhythm Strip Diag. Results EP Interpretation: yes Rate: 70 Rhythm: NSR, no PVC's, no ectopy Last Vital Signs Date Time Temp Pulse Resp B/P (MAP) Pulse Ox O2 Delivery O2 Flow Rate FiO2 03/03/17 16:28 99.0 95 20 121/62 87 Room Air Disposition: HOME, SELF-CARE Condition: Improved Aylin De La Vega M.D. Mar 03, 2017 16:50
[2017-03-03 18:41] VITALS: BP 109/75
== END 2017-03-03 18:45 | disposition home or self-care (01) ==
LOC: EMR 16:59
DX: T83.038A Leakage of other urinary catheter, initial encounter (principal); I10 Essential (primary) hypertension; J45.909 Unspecified asthma, uncomplicated; J44.9 Chronic obstructive pulmonary disease, unspecified; Z86.73 Personal history of transient ischemic attack (TIA), and cerebral infarction without residual deficits; Z88.1 Allergy status to other antibiotic agents; Z88.8 Allergy status to other drugs, medicaments and biological substances; Y84.6 Urinary catheterization as the cause of abnormal reaction of the patient, or of later complication, without mention of misadventure at the time of the procedure; Y92.9 Unspecified place or not applicable
CPT/HCPCS: 51702; 99284

== ENCOUNTER 2017-05-30 12:07 | Inpatient (IN) | payer MEDICARE, OTHER ==
[~2017-05-30] VITALS: Ht 156.2 cm; Wt 62.6 kg
[~2017-05-30 12:07] MED LIST changes: +PRILOSEC10 M1 ORAL
[2017-05-31 18:10] VITALS: BP 156/83
[2017-05-31] MEDS ORDERED: LISINOPRIL20 MG ORAL (19:14)
[2017-05-31] MEDS ORDERED: DECADRON2 MG IVP (19:14)
[2017-05-31] MEDS ORDERED: COLACE100 MG ORAL (19:14)
[2017-05-31] MEDS ORDERED: BACTROBAN CR1 APPLIC TOPIC (19:14)
[2017-05-31] MEDS ORDERED: ZOFRAN 4 MG4 MG/2 ML IV (19:14)
[2017-05-31] MEDS ORDERED: HYDRALAZINE HCL10 MG IVP (19:14)
[2017-05-31] MEDS ORDERED: PEPCID20 MG IV (19:14)
[2017-05-31] MEDS ORDERED: ALBUTEROL2.5 MG/3 M INH (19:14)
[2017-05-31] MEDS ORDERED: ASPIRIN81 MG ORAL (19:14)
[2017-05-31] MEDS ORDERED: LORAZEPAM4 MG/1 M1 IV (19:14)
[2017-05-31] MEDS ORDERED: MORPHINE 11 MG/2 ML IV (19:14)
[2017-05-31] MEDS ORDERED: ACETAMINOP160 MG/55 ORAL (19:14)
[2017-05-31] MEDS ORDERED: HEPARIN SO5000 UNIT2 SUBQ (19:14)
[2017-05-31] MEDS ORDERED: LEVOTHYROXINE100 MCG ORAL (19:14)
[2017-05-31] MEDS ORDERED: METHADONE H5 MG/5 M1 PO (19:14)
[2017-05-31] MEDS ORDERED: LORazepam 1mg tab ORAL PRN (19:45)
[2017-05-31] MEDS ORDERED: Acetaminophen 650mg/20.3ml ORAL PRN (19:45)
[2017-05-31 20:00] VITALS: BP 141/73
[2017-05-31] MEDS: Heparin 5000 units/ml inj SUBQ SCH (21:30)
[2017-05-31] MEDS: Docusate 250mg cap ORAL SCH (22:32)
[2017-05-31] MEDS: Albuterol ud Inhalation HHN SCH (23:12)
[2017-06-01 00:10] VITALS: BP 112/63
[2017-06-01] MEDS: Dexamethasone 4mg/ml vial IVP SCH ×4 (00:17→17:39)
[2017-06-01] MEDS: Albuterol ud Inhalation HHN SCH ×6 (03:00→23:00)
[2017-06-01 04:15] VITALS: BP 132/67
[2017-06-01 05:25] LABS: MEAN CORPUSCULAR HGB CONC 33.4 G/DL (32.0-36.0); MEAN CORPUSCULAR VOLUME 96 FL (80-99); MEAN PLATELET VOLUME 6.2 FL (6.5-10.1); PLATELET COUNT 134 K/UL (150-450); RED BLOOD COUNT 4.45 M/UL (4.20-5.40); RED CELL DISTRIBUTION WIDTH 11.4 % (11.6-14.8); WHITE BLOOD COUNT 8.7 K/UL (4.8-10.8)
[2017-06-01 05:44] LABS: AMMONIA 31 umol/L (11-32)
[2017-06-01 06:06] LABS: ALANINE AMINOTRANSFERASE 26 U/L (12-78); ALBUMIN/GLOBULIN RATIO 0.8 (1.0-2.7); ANION GAP 7 mmol/L (5-15); ASPARTATE AMINO TRANSFERASE 32 U/L (15-37); CALCIUM 8.5 MG/DL (8.5-10.1); CARBON DIOXIDE 28 MMOL/L (21-32); CHLORIDE 103 MMOL/L (98-107); CREATININE 0.9 MG/DL (0.55-1.30); POTASSIUM 4.2 MMOL/L (3.5-5.1); SODIUM 138 MMOL/L (136-145); TOTAL PROTEIN 5.9 G/DL (6.4-8.2)
[2017-06-01 08:03] LABS: BAND NEUTROPHILS % (MANUAL) 0 % (0-8); BASOPHILS % (MANUAL) 0 % (0-2); EOSINOPHILS % (MANUAL) 0 % (0-3); LYMPHOCYTES % (MANUAL) 5 % (20-45); NEUTROPHILS % (MANUAL) 89 % (45-75); PLATELET ESTIMATE DECREASED; PLATELET MORPHOLOGY NORMAL; TOTAL CELLS COUNTED 100
[2017-06-01] MEDS: Heparin 5000 units/ml inj SUBQ SCH ×2 (08:39→21:00)
[2017-06-01] MEDS: Aspirin Baby 81mg ORAL SCH (08:40)
[2017-06-01] MEDS: Lisinopril 10mg tab ORAL SCH (08:40)
--- NOTE | 2017-06-01 11:15 | Urology Progress Note ---
Assessment/Plan Assessment/Plan bladder ca hx hematuria hx LUTS possible neurogenic bladder monitor clinically check UA check PVR surveillance cysto later thanks, Subjective Allergies: Coded Allergies: MOXIFLOXACIN HCL (Verified Allergy, Intermediate, Rash, 04/08/12) HYDROCHLOROTHIAZIDE (Verified Adverse Reaction, Intermediate, HYPONATEREMIA, 03/22/13) TRIAMTERENE (Verified Adverse Reaction, Intermediate, HYPONATEREMIA, ) Subjective Initial evaluation all noted, pt well known to me, hx of hematuria, bladder ca, TURBT 3 months ago , recent course of intravesical BCG recently admitted to [place] and now transferred to [facility] urine reported grossly kathie/yellow hx of urinary retention, now voiding, some urinary frequency Objective Last 24 Hour Vital Signs Date Time Temp Pulse Resp B/P (MAP) Pulse Ox O2 Delivery O2 Flow Rate FiO2 06/01/17 10:43 Nasal Cannula 2.0 28 06/01/17 10:43 Nasal Cannula 2.0 28 06/01/17 08:40 125/82 06/01/17 08:00 93 06/01/17 06:42 87 18 99 Nasal Cannula 2.0 28 06/01/17 06:38 84 16 97 Nasal Cannula 2.0 28 06/01/17 04:15 97.7 90 20 132/67 94 Nasal Cannula 1.0 06/01/17 04:00 91 06/01/17 03:05 Nasal Cannula 2.0 06/01/17 03:05 Nasal Cannula 06/01/17 00:10 98.6 20 112/63 95 Nasal Cannula 1.0 06/01/17 00:00 82 05/31/17 23:28 89 16 99 Nasal Cannula 2.0 28 05/31/17 23:16 86 16 Nasal Cannula 2.0 28 05/31/17 23:16 86 16 97 Nasal Cannula 2.0 28 05/31/17 20:00 100 05/31/17 20:00 97.9 103 20 141/73 93 Room Air 05/31/17 18:10 97.7 98 20 156/83 93 Room Air Current Medications Medications (Trade) Dose Ordered Sig/Hasmukh Route PRN Reason Start Time Stop Time Status Last Admin Dose Admin Acetaminophen (Tylenol) 650 mg Q6H PRN ORAL Mild Pain/Temp > 100.5 05/31/17 19:45 06/30/17 19:44 Albuterol Sulfate (Proventil) 2.5 mg Q4HRT HHN 05/31/17 23:00 06/05/17 22:59 06/01/17 06:38 Aspirin (ASA) 81 mg DAILY ORAL 06/01/17 09:00 07/01/17 08:59 06/01/17 08:40 Dexamethasone Sodium Phosphate (Decadron 4mg/ml vial) 10 mg Q6HR IVP 06/01/17 00:00 07/01/17 00:00 06/01/17 06:17 Docusate Sodium (Colace) 250 mg QHS ORAL 05/31/17 21:30 06/30/17 21:29 05/31/17 22:32 Famotidine (Pepcid I.v.) 20 mg Q12HR IVP 05/31/17 21:30 06/30/17 21:29 06/01/17 08:40 Heparin Sodium (Porcine) (Heparin 5000 units/ml) 5,000 units EVERY 12 HOURS SUBQ 05/31/17 21:30 06/30/17 21:29 06/01/17 08:39 Levothyroxine Sodium (Synthroid) 100 mcg ACBREAKFAST ORAL 06/01/17 06:30 07/01/17 06:29 06/01/17 06:17 Lisinopril (Zestril) 10 mg DAILY ORAL 06/01/17 09:00 07/01/17 08:59 06/01/17 08:40 Lorazepam (Ativan) 1 mg Q6H PRN ORAL Agitation 05/31/17 19:45 06/07/17 19:44 Methadone HCl (Methadone HCl) 50 mg DAILY ORAL 06/01/17 09:00 06/08/17 08:59 06/01/17 08:43 Ondansetron HCl (Zofran ODT) 4 mg Q6H PRN ORAL Nausea & Vomiting 05/31/17 19:45 06/30/17 19:44 Laboratory Tests 06/01/17 03:30: White Blood Count 8.7, Red Blood Count 4.45, Hemoglobin 14.2, Hematocrit 42.7, Mean Corpuscular Volume 96, Mean Corpuscular Hemoglobin 32.0H, Mean Corpuscular Hemoglobin Concent 33.4, Red Cell Distribution Width 11.4L, Platelet Count 134L , Mean Platelet Volume 6.2L, Neutrophils (%) (Auto) , Lymphocytes (%) (Auto) , Monocytes (%) (Auto) , Eosinophils (%) (Auto) , Basophils (%) (Auto) , Differential Total Cells Counted 100, Neutrophils % (Manual) 89H, Lymphocytes % (Manual) 5L, Monocytes % (Manual) 6, Eosinophils % (Manual) 0, Basophils % ( Manual) 0, Band Neutrophils 0, Platelet Estimate DecreasedL, Platelet Morphology Normal, Red Blood Cell Morphology Normal, Sodium Level 138, Potassium Level 4.2, Chloride Level 103, Carbon Dioxide Level 28, Anion Gap 7, Blood Urea Nitrogen 19H, Creatinine 0.9, Estimat Glomerular Filtration Rate , Glucose Level 95, Calcium Level 8.5, Total Bilirubin 0.4, Aspartate Amino Transf (AST/SGOT) 32, Alanine Aminotransferase (ALT/SGPT) 26, Alkaline Phosphatase 60, Ammonia 31, Total Protein 5.9L, Albumin 2.6L, Globulin 3.3, Albumin/Globulin Ratio 0.8L Height (Feet): 5 Height (Inches): 1.50 Weight (Pounds): 138 Objective exam stable, abdomen soft SABASHADGIOVANNI Jun 01, 2017 11:15
--- NOTE | 2017-06-01 12:41 | History & Physical ---
History and Physical History & Physicial CC: encephalopathy HISTORY OF PRESENT ILLNESS: Patient is a 82-year-old woman who was admitted to [place] for AMS. Found resp failure and hepatic encephalopathy. Intubated x 1 d for high pCO2. Now transferred here, feels weak. PAST MEDICAL HISTORY: Hypertension, COPD, rectal cancer with colostomy. 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 She had a stroke with good recovery in 1998. She was admitted for SBO in past. Recent dx bladder cancer treated by Dr Leonard. ALLERGIES: HYDROCHLOROTHIAZIDE, MOXIFLOXACIN, TRIAMTERENE. FAMILY HISTORY: Negative for cardiac disease. MEDICATIONS: Reviewed and reconciled. REVIEW OF SYSTEMS: She has no personal history of cardiac disease. There is no chest pain. She has pedal edema. She has no nausea, vomiting or diarrhea. She does complain of joint pain. No alcohol, past smoker PHYSICAL EXAMINATION: GENERAL: The patient is alert and responsive. She is overweight. She is in no distress. She appears chronically ill. VITAL SIGNS: Sinus rhythm, VS stable, no fever HEENT: Head is normocephalic. NECK: Not distended. CHEST: Decreased air entry with no wheezing. CARDIAC: Rhythm is regular ABDOMEN: Soft and nontender, colostomy is in place. EXTREMITIES: no edema. labs reviewed, NH3 normal now monitor trung, tachy IMPRESSION: 1. Respiratory failure, extubated 2. COPD 3. Hepatic encephalopathy, resolved 4. Arrhythmia 5. Hypertension. 6. Bladder cancer 7. History of colorectal cancer with colostomy. Plan: urology consult, GI, cardiology OT/PT will need [facility] RIAZ FRAGOSO Jun 01, 2017 12:41
[2017-06-01] MEDS: HydrALAZINE 10mg Tab ORAL PRN (16:10)
[2017-06-01 17:45] LABS: ABG PCO2 53.7 mmHg (35.0-45.0)
[2017-06-01 17:46] LABS: ABG ALLEN TEST POSITIVE; ABG BASE EXCESS 5.6
[2017-06-01 19:56] LABS: APPEARANCE,URINE CLEAR; KETONES,URINE NEGATIVE (NEGATIVE); LEUKOCYTE ESTERASE ,URINE 1+ (NEGATIVE); NITRITE,URINE NEGATIVE (NEGATIVE); PH,URINE 5 (4.5-8.0); PROTEIN,URINE 2+ (NEGATIVE); UROBILINOGEN,URINE 1 MG/DL (0.0-1.0)
[2017-06-01 20:04] LABS: BACTERIA,URINE FEW /HPF; RBC,URINE 30-40 /HPF (0 - 2); SQUAMOUS EPITHELIAL CELL,UR OCCASIONAL /LPF (NONE/OCC)
[2017-06-01 20:29] VITALS: BP 154/74
[2017-06-01] MEDS: Docusate 250mg cap ORAL SCH (20:41)
--- NOTE | 2017-06-01 20:43 | General Progress Note ---
Assessment/Plan Assessment/Plan GI CONSULT Dictated Doubt acute AMS/Resp failure at [facility] due to hepatic encephalopathy (patient was alert when she was taken there) Suspect another cause (toxic metabolic, drugs, hypercapnia, etc) Elevated NH3 can be seen due to other causes, such as constipation H/o HCV noted - will check PCR. Thank you Umberto Tohmas MD Subjective Allergies: Coded Allergies: MOXIFLOXACIN HCL (Verified Allergy, Intermediate, Rash, 04/08/12) HYDROCHLOROTHIAZIDE (Verified Adverse Reaction, Intermediate, HYPONATEREMIA, 03/22/13) TRIAMTERENE (Verified Adverse Reaction, Intermediate, HYPONATEREMIA, ) Objective Last 24 Hour Vital Signs Date Time Temp Pulse Resp B/P (MAP) Pulse Ox O2 Delivery O2 Flow Rate FiO2 06/01/17 20:29 98.3 102 20 154/74 95 Nasal Cannula 2.0 06/01/17 19:29 88 18 95 Nasal Cannula 2.0 28 06/01/17 19:22 Nasal Cannula 2.0 28 06/01/17 19:21 93 Nasal Cannula 2.0 06/01/17 19:20 86 18 93 Nasal Cannula 2.0 06/01/17 16:10 164/93 06/01/17 16:00 60 06/01/17 15:10 Nasal Cannula 2.0 06/01/17 15:10 Nasal Cannula 2.0 28 06/01/17 12:00 107 06/01/17 10:43 Nasal Cannula 2.0 06/01/17 10:43 Nasal Cannula 2.0 06/01/17 08:40 125/82 06/01/17 08:00 93 06/01/17 06:42 87 18 99 Nasal Cannula 2.0 28 06/01/17 06:38 84 16 97 Nasal Cannula 2.0 28 06/01/17 04:15 97.7 90 20 132/67 94 Nasal Cannula 1.0 06/01/17 04:00 91 06/01/17 03:05 Nasal Cannula 2.0 06/01/17 03:05 Nasal Cannula 06/01/17 00:10 98.6 20 112/63 95 Nasal Cannula 1.0 06/01/17 00:00 82 05/31/17 23:28 89 16 99 Nasal Cannula 2.0 05/31/17 23:16 86 16 Nasal Cannula 2.0 28 05/31/17 23:16 86 16 97 Nasal Cannula 2.0 28 Intake and Output 06/01/17 06/02/17 19:00 07:00 Intake Total 480 ml Output Total 150 ml Balance 330 ml Intake Oral 480 ml Output Urine Total 150 ml # Voids 3 Laboratory Tests 06/01/17 03:30: White Blood Count 8.7, Red Blood Count 4.45, Hemoglobin 14.2, Hematocrit 42.7, Mean Corpuscular Volume 96, Mean Corpuscular Hemoglobin 32.0H, Mean Corpuscular Hemoglobin Concent 33.4, Red Cell Distribution Width 11.4L, Platelet Count 134L , Mean Platelet Volume 6.2L, Neutrophils (%) (Auto) , Lymphocytes (%) (Auto) , Monocytes (%) (Auto) , Eosinophils (%) (Auto) , Basophils (%) (Auto) , Differential Total Cells Counted 100, Neutrophils % (Manual) 89H, Lymphocytes % (Manual) 5L, Monocytes % (Manual) 6, Eosinophils % (Manual) 0, Basophils % ( Manual) 0, Band Neutrophils 0, Platelet Estimate DecreasedL, Platelet Morphology Normal, Red Blood Cell Morphology Normal, Sodium Level 138, Potassium Level 4.2, Chloride Level 103, Carbon Dioxide Level 28, Anion Gap 7, Blood Urea Nitrogen 19H, Creatinine 0.9, Estimat Glomerular Filtration Rate , Glucose Level 95, Calcium Level 8.5, Total Bilirubin 0.4, Aspartate Amino Transf (AST/SGOT) 32, Alanine Aminotransferase (ALT/SGPT) 26, Alkaline Phosphatase 60, Ammonia 31, Total Protein 5.9L, Albumin 2.6L, Globulin 3.3, Albumin/Globulin Ratio 0.8L 06/01/17 17:30: Arterial Blood pH 7.395, Arterial Blood Partial Pressure CO2 53.7H, Arterial Blood Partial Pressure O2 46.5*L, Arterial Blood HCO3 32.1H, Arterial Blood Oxygen Saturation 82.0L, Arterial Blood Base Excess 5.6, Kai Test Positive 06/01/17 18:30: Urine Color Yellow, Urine Appearance Clear, Urine pH 5, Urine Specific [place] 1.015, Urine Protein 2+H, Urine Glucose (UA) Negative, Urine Ketones Negative, Urine Occult Blood 5+H, Urine Nitrite Negative, Urine Bilirubin Negative, Urine Urobilinogen 1H, Urine Leukocyte Esterase 1+H, Urine RBC 30-40H, Urine WBC 2-4, Urine Squamous Epithelial Cells Occasional, Urine Bacteria Few Height (Feet): 5 Height (Inches): 1.50 Weight (Pounds): 138 UMBERTO THOMAS Jun 01, 2017 20:43
[2017-06-01] MEDS ORDERED: Sorbitol Solution UD 30ml ORAL ONE (20:45)
[2017-06-02] VITALS: BP 155/80
[2017-06-02] MEDS: Albuterol ud Inhalation HHN SCH ×6 (02:21→23:00)
--- NOTE | 2017-06-02 02:45 | Consultation ---
DATE OF CONSULTATION: 06/01/2017 GASTROENTEROLOGY CONSULTATION CONSULTING PHYSICIAN: Umberto Thomas M.D. REFERRING PHYSICIAN: Dallas Branch M.D. CHIEF COMPLAINT: I was asked to see the patient by Dr. Dallas Branch for evaluation of liver disease. HISTORY OF PRESENT ILLNESS: The patient is a pleasant 82-year-old white woman with a history of chronic respiratory failure, who comes in from [facility] with respiratory failure. The patient was taken to [facility] for breathing issues. The patient herself states that she was awake and alert when she was taken, but subsequently in the hospital she was found to have progressively altered mental status to the point of having respiratory failure and therefore she was intubated. The intubation was brief and the following day she was extubated and then transferred to [facility] for further care. During the hospitalization, the patient was found to have an elevated ammonia level and therefore, the consideration was made of hepatic encephalopathy and she was placed on treatment for that. It should be noted the patient does have a longstanding history of hepatitis C, but this has been quiet. She is not carrying any history of cirrhosis. PAST MEDICAL HISTORY: History of hypertension, COPD, rectal cancer treated with colostomy, and history of methadone for long-term pain. The patient used to use intravenous drugs in the 70s, history of deep vein thrombosis, asthma, gastroesophageal reflux disease, hyperlipidemia, chronic liver disease including hepatitis C, although the extent is unknown, history of small bowel obstruction in the past, and history of bladder cancer followed by urologist. The patient is on oxygen at home. FAMILY HISTORY: Negative for liver disease. SOCIAL HISTORY: The patient lives alone. She does not drink alcohol. She does take methadone for long-term pain. MEDICATIONS: See the chart list for details. REVIEW OF SYSTEMS: Otherwise negative. PHYSICAL EXAMINATION: GENERAL: Pleasant white woman seen in her room. HEENT: Normocephalic and atraumatic. Sclerae anicteric. Oropharynx clear. NECK: Supple. CHEST: Clear to auscultation. CARDIOVASCULAR: Regular rate. ABDOMEN: Soft. Good bowel sounds. EXTREMITIES: No edema. LABORATORY DATA: Noted. ASSESSMENT: This patient presents with altered mental status, but her pain was acute and resolved and the patient has been clear in her mental status at home and at all other times and therefore, hepatic encephalopathy is not likely. other causes for acute mental status decompensation such as toxic metabolic encephalopathy, hypercapnia, and possibly medications or drugs. At this point, she is clear and alert, and I doubt if the elevated ammonia has much to do with her mental status. The elevated ammonia can be seen with other conditions including constipation. The patient does have a history of hepatitis C and that can be attended to separately. I will check her hepatitis C PCR and discuss treatment with her if necessary. In the meantime, I will give her some lactulose and recheck her ammonia level in the morning. She does not need treatment for hepatic encephalopathy at this time. RECOMMENDATIONS: Per above discussion and per orders written in the chart. Thank you for asking me to participate in the care of this patient. Umberto Thomas M.D. DR: ALE JOB#: [id number] CC: VERO
[2017-06-02 04:00] VITALS: BP 165/91
[2017-06-02] MEDS: HydrALAZINE 10mg Tab ORAL PRN (04:04)
--- NOTE | 2017-06-02 04:30 | Consultation ---
DATE OF CONSULTATION: 06/01/2017 REQUESTING PHYSICIAN: Dallas Branch M.D. REASON FOR CONSULTING: Bradyarrhythmia. HISTORY OF PRESENT ILLNESS: This 82-year-old female was in the [place] emergency room yesterday with altered mentation. She had respiratory failure and hepatic encephalopathy. She was hypercapnic and required intubation and mechanical ventilation. She was subsequently extubated with normalized ammonia level and transferred here for completion of care. Today early in the morning while asleep, she was noted to have bradycardic episodes in the 30s. She was asymptomatic when awake and her heart rate promptly improved and in fact became tachycardic at some point thereafter. The patient's cardiac rhythm has remained stable since with some episodes of sinus arrhythmia. PAST MEDICAL HISTORY: Chronic obstructive pulmonary disease, rectal cancer with colostomy, hypertension, methadone dependence, history of DVT, gastroesophageal reflux disease, hyperlipidemia, hepatitis C with chronic liver disease, status post Harvoni therapy, cerebrovascular disease with history of cerebrovascular accident, history of small bowel obstruction, and history of bladder cancer. ALLERGIES: Hydrochlorothiazide, Floxin and triamterene. FAMILY HISTORY: Noncontributory. MEDICATIONS: Prior to admission reviewed and reconciled. Current MAR reviewed. SOCIAL HISTORY: Methadone dependence. No alcohol. Prior smoker, pack year history not readily available. REVIEW OF SYSTEMS: She denies any known history of irregular heartbeats, loss of consciousness, dizziness or syncope, chest pain or shortness of breath. No leg swelling. PHYSICAL EXAMINATION: GENERAL: Awake and alert, in no distress. Appropriately responsive, but with some difficulty hearing. VITAL SIGNS: Blood pressure 125/82, pulse 93, respiratory rate 18, afebrile. HEENT: Normocephalic and atraumatic. Conjunctivae pink. Sclerae are anicteric. Oropharynx clear. Mucous membranes moist. NECK: Supple. No jugular venous distention. No carotid sinus hypersensitivity. No bruits. LUNGS: Clear with slightly diminished breath sounds. CARDIAC: Regular rhythm and rate. Normal S1, S2 with no murmur. ABDOMEN: Soft and nontender with colostomy. EXTREMITIES: Without edema, cyanosis, or clubbing. LABORATORY DATA: White count 8.7 and hemoglobin 14.2. Potassium 4.2, BUN 19, creatinine 0.9, albumin 2.6. ABG, 7.39, 54, 46. It should be noted that this ABG was obtained almost approximately 10 hours after the bradycardic event noted above. IMPRESSION: 1. Paroxysmal bradyarrhythmias. I would suspect these are precipitated by episodes of respiratory insufficiency and possibly hypercarbia. Other considerations would include underlying sinus node disease. 2. Chronic obstructive pulmonary disease. 3. Status post respiratory failure. 4. Chronic liver disease with resolved ammonia elevation. PLAN: 1. Cardiac monitoring. Repeat EKG and check thyroid panel. Monitor respiratory parameters and acid base status. Presently, there is no indication for any pacemaker as the patient's arrhythmia is asymptomatic and has only occurred with sleep. 2. We will follow and make further recommendations as clinical course warrants. Frantz Humphries M.D. DR: RAJESH JOB#: [id number] CC:
[2017-06-02 05:42] LABS: PROTHROMBIN TIME 10.1 SEC (9.30-11.50)
[2017-06-02 08:00] VITALS: BP 138/78
[2017-06-02] MEDS: Aspirin Baby 81mg ORAL SCH (09:17)
[2017-06-02] MEDS: Lisinopril 10mg tab ORAL SCH (09:17)
[2017-06-02] MEDS: Heparin 5000 units/ml inj SUBQ SCH ×2 (09:21→20:01)
--- NOTE | 2017-06-02 09:29 | Urology Progress Note ---
Assessment/Plan Assessment/Plan bladder ca hx hematuria hx LUTS possible neurogenic bladder mild pyuria proteinuria monitor clinically surveillance cysto later Subjective Allergies: Coded Allergies: MOXIFLOXACIN HCL (Verified Allergy, Intermediate, Rash, 04/08/12) HYDROCHLOROTHIAZIDE (Verified Adverse Reaction, Intermediate, HYPONATEREMIA, 03/22/13) TRIAMTERENE (Verified Adverse Reaction, Intermediate, HYPONATEREMIA, ) Subjective all noted, voiding, PVR reported minimal Objective Last 24 Hour Vital Signs Date Time Temp Pulse Resp B/P (MAP) Pulse Ox O2 Delivery O2 Flow Rate FiO2 06/02/17 09:17 138/78 06/02/17 08:00 99.0 88 17 138/78 96 06/02/17 08:00 87 06/02/17 06:51 Nasal Cannula 2.0 06/02/17 06:51 96 Nasal Cannula 2.0 06/02/17 06:35 85 18 99 Nasal Cannula 2.0 06/02/17 06:30 83 18 96 Nasal Cannula 2.0 06/02/17 04:04 165/91 06/02/17 04:00 88 06/02/17 04:00 98.1 80 18 165/91 99 Nasal Cannula 2.0 06/02/17 02:21 Nasal Cannula 06/02/17 02:21 Nasal Cannula 06/02/17 00:00 77 06/02/17 00:00 98.3 92 20 155/80 96 Nasal Cannula 2.0 06/01/17 23:42 Nasal Cannula 06/01/17 23:40 Nasal Cannula 06/01/17 20:29 98.3 102 20 154/74 95 Nasal Cannula 2.0 06/01/17 20:00 92 06/01/17 19:29 88 18 95 Nasal Cannula 2.0 06/01/17 19:22 Nasal Cannula 2.0 28 06/01/17 19:21 93 Nasal Cannula 2.0 06/01/17 19:20 86 18 93 Nasal Cannula 2.0 06/01/17 16:10 164/93 06/01/17 16:00 60 06/01/17 15:10 Nasal Cannula 2.0 28 06/01/17 15:10 Nasal Cannula 2.0 28 06/01/17 12:00 107 06/01/17 10:43 Nasal Cannula 2.0 06/01/17 10:43 Nasal Cannula 2.0 28 Current Medications Medications (Trade) Dose Ordered Sig/Hasmukh Route PRN Reason Start Time Stop Time Status Last Admin Dose Admin Acetaminophen (Tylenol) 650 mg Q6H PRN ORAL Mild Pain/Temp > 100.5 05/31/17 19:45 06/30/17 19:44 Albuterol Sulfate (Proventil) 2.5 mg Q4HRT HHN 05/31/17 23:00 06/05/17 22:59 06/02/17 06:49 Aspirin (ASA) 81 mg DAILY ORAL 06/01/17 09:00 07/01/17 08:59 06/02/17 09:17 Docusate Sodium (Colace) 250 mg QHS ORAL 05/31/17 21:30 06/30/17 21:29 06/01/17 20:41 Famotidine (Pepcid I.v.) 20 mg Q12HR IVP 05/31/17 21:30 06/30/17 21:29 06/02/17 09:16 Heparin Sodium (Porcine) (Heparin 5000 units/ml) 5,000 units EVERY 12 HOURS SUBQ 05/31/17 21:30 06/30/17 21:29 06/02/17 09:21 Hydralazine HCl (Apresoline) 10 mg Q6H PRN ORAL SBP above 160 06/01/17 16:00 07/01/17 15:59 06/02/17 04:04 Levothyroxine Sodium (Synthroid) 100 mcg ACBREAKFAST ORAL 06/01/17 06:30 07/01/17 06:29 06/02/17 06:42 Lisinopril (Zestril) 10 mg DAILY ORAL 06/01/17 09:00 07/01/17 08:59 06/02/17 09:17 Lorazepam (Ativan) 1 mg Q6H PRN ORAL Agitation 05/31/17 19:45 06/07/17 19:44 Methadone HCl (Methadone HCl) 50 mg DAILY ORAL 06/01/17 09:00 06/08/17 08:59 06/02/17 09:16 Ondansetron HCl (Zofran ODT) 4 mg Q6H PRN ORAL Nausea & Vomiting 05/31/17 19:45 06/30/17 19:44 Laboratory Tests 06/01/17 17:30: Arterial Blood pH 7.395, Arterial Blood Partial Pressure CO2 53.7H, Arterial Blood Partial Pressure O2 46.5*L, Arterial Blood HCO3 32.1H, Arterial Blood Oxygen Saturation 82.0L, Arterial Blood Base Excess 5.6, Kai Test Positive 06/01/17 18:30: Urine Color Yellow, Urine Appearance Clear, Urine pH 5, Urine Specific [place] 1.015, Urine Protein 2+H, Urine Glucose (UA) Negative, Urine Ketones Negative, Urine Occult Blood 5+H, Urine Nitrite Negative, Urine Bilirubin Negative, Urine Urobilinogen 1H, Urine Leukocyte Esterase 1+H, Urine RBC 30-40H, Urine WBC 2-4, Urine Squamous Epithelial Cells Occasional, Urine Bacteria Few 06/02/17 03:50: Prothrombin Time 10.1, Prothromb Time International Ratio 1.0, Ammonia 7L, Hepatitis C Antibody [Pending], Hepatitis C RNA (PCR) IUs/ml [Pending], Hepatitis C RNA (PCR) log IUs/ml [Pending] Height (Feet): 5 Height (Inches): 1.50 Weight (Pounds): 138 Objective exam stable, abdomen soft BAMSHAD,GIOVANNI Jun 02, 2017 09:29
[2017-06-02 12:00] VITALS: BP 162/88
--- NOTE | 2017-06-02 13:11 | Pulmonology Progress Note ---
Assessment/Plan Assessment/Plan 1. Respiratory failure, extubated 2. COPD with respiratory acidosis 3. Hepatic encephalopathy, resolved 4. Arrhythmia 5. Hypertension. 6. Bladder cancer 7. History of colorectal cancer with colostomy. seems stable plan SNF tomorrow [facility] Subjective Constitutional: Reports: fatigue, Denies: fever Respiratory: Reports: shortness of breath Allergies: Coded Allergies: MOXIFLOXACIN HCL (Verified Allergy, Intermediate, Rash, 04/08/12) HYDROCHLOROTHIAZIDE (Verified Adverse Reaction, Intermediate, HYPONATEREMIA, 03/22/13) TRIAMTERENE (Verified Adverse Reaction, Intermediate, HYPONATEREMIA, ) Objective Last 24 Hour Vital Signs Date Time Temp Pulse Resp B/P (MAP) Pulse Ox O2 Delivery O2 Flow Rate FiO2 06/02/17 11:35 89 18 99 Nasal Cannula 2.0 28 06/02/17 11:30 88 18 96 Nasal Cannula 2.0 28 06/02/17 09:17 138/78 06/02/17 08:00 99.0 88 17 138/78 96 06/02/17 08:00 87 06/02/17 06:51 Nasal Cannula 2.0 28 06/02/17 06:51 96 Nasal Cannula 2.0 28 06/02/17 06:35 85 18 99 Nasal Cannula 2.0 28 06/02/17 06:30 83 18 96 Nasal Cannula 2.0 06/02/17 04:04 165/91 06/02/17 04:00 88 06/02/17 04:00 98.1 80 18 165/91 99 Nasal Cannula 2.0 06/02/17 02:21 Nasal Cannula 06/02/17 02:21 Nasal Cannula 06/02/17 00:00 77 06/02/17 00:00 98.3 92 20 155/80 96 Nasal Cannula 2.0 06/01/17 23:42 Nasal Cannula 06/01/17 23:40 Nasal Cannula 06/01/17 20:29 98.3 102 20 154/74 95 Nasal Cannula 2.0 06/01/17 20:00 92 06/01/17 19:29 88 18 95 Nasal Cannula 2.0 28 06/01/17 19:22 Nasal Cannula 2.0 28 06/01/17 19:21 93 Nasal Cannula 2.0 06/01/17 19:20 86 18 93 Nasal Cannula 2.0 28 06/01/17 16:10 164/93 06/01/17 16:00 60 06/01/17 15:10 Nasal Cannula 2.0 28 06/01/17 15:10 Nasal Cannula 2.0 28 Intake and Output 06/02/17 06/03/17 19:00 07:00 Intake Total 200 ml Balance 200 ml Intake Oral 200 ml # Voids 2 General Appearance: no acute distress HEENT: atraumatic Respiratory/Chest: lungs clear, decreased breath sounds Cardiovascular: normal rate, tachycardia Laboratory Tests 06/01/17 17:30: Arterial Blood pH 7.395, Arterial Blood Partial Pressure CO2 53.7H, Arterial Blood Partial Pressure O2 46.5*L, Arterial Blood HCO3 32.1H, Arterial Blood Oxygen Saturation 82.0L, Arterial Blood Base Excess 5.6, Kai Test Positive 06/01/17 18:30: Urine Color Yellow, Urine Appearance Clear, Urine pH 5, Urine Specific [place] 1.015, Urine Protein 2+H, Urine Glucose (UA) Negative, Urine Ketones Negative, Urine Occult Blood 5+H, Urine Nitrite Negative, Urine Bilirubin Negative, Urine Urobilinogen 1H, Urine Leukocyte Esterase 1+H, Urine RBC 30-40H, Urine WBC 2-4, Urine Squamous Epithelial Cells Occasional, Urine Bacteria Few 06/02/17 03:50: Prothrombin Time 10.1, Prothromb Time International Ratio 1.0, Ammonia 7L, Hepatitis C Antibody [Pending], Hepatitis C RNA (PCR) IUs/ml [Pending], Hepatitis C RNA (PCR) log IUs/ml [Pending] Current Medications Medications (Trade) Dose Ordered Sig/Hasmukh Route PRN Reason Start Time Stop Time Status Last Admin Dose Admin Acetaminophen (Tylenol) 650 mg Q6H PRN ORAL Mild Pain/Temp > 100.5 05/31/17 19:45 06/30/17 19:44 Albuterol Sulfate (Proventil) 2.5 mg Q4HRT HHN 05/31/17 23:00 06/05/17 22:59 06/02/17 11:47 Aspirin (ASA) 81 mg DAILY ORAL 06/01/17 09:00 07/01/17 08:59 06/02/17 09:17 Docusate Sodium (Colace) 250 mg QHS ORAL 05/31/17 21:30 06/30/17 21:29 06/01/17 20:41 Famotidine (Pepcid I.v.) 20 mg Q12HR IVP 05/31/17 21:30 06/30/17 21:29 06/02/17 09:16 Heparin Sodium (Porcine) (Heparin 5000 units/ml) 5,000 units EVERY 12 HOURS SUBQ 05/31/17 21:30 06/30/17 21:29 06/02/17 09:21 Hydralazine HCl (Apresoline) 10 mg Q6H PRN ORAL SBP above 160 06/01/17 16:00 07/01/17 15:59 06/02/17 04:04 Levothyroxine Sodium (Synthroid) 100 mcg ACBREAKFAST ORAL 06/01/17 06:30 07/01/17 06:29 06/02/17 06:42 Lisinopril (Zestril) 10 mg DAILY ORAL 06/01/17 09:00 07/01/17 08:59 06/02/17 09:17 Lorazepam (Ativan) 1 mg Q6H PRN ORAL Agitation 05/31/17 19:45 06/07/17 19:44 Methadone HCl (Methadone HCl) 50 mg DAILY ORAL 06/01/17 09:00 06/08/17 08:59 06/02/17 09:16 Ondansetron HCl (Zofran ODT) 4 mg Q6H PRN ORAL Nausea & Vomiting 05/31/17 19:45 06/30/17 19:44 RIAZ FRAGOSO Jun 02, 2017 13:11
[2017-06-02 16:00] VITALS: BP 134/77
--- NOTE | 2017-06-02 19:18 | General Progress Note ---
Assessment/Plan Assessment/Plan Assessment - Hepatitis C - COPD - chronic pain - GERD - Obesity Recommendations - follow mental status off Rx - f/u Hepatitis C PCR - consider outpt HCV eradication if PCR (+) Subjective Allergies: Coded Allergies: MOXIFLOXACIN HCL (Verified Allergy, Intermediate, Rash, 04/08/12) HYDROCHLOROTHIAZIDE (Verified Adverse Reaction, Intermediate, HYPONATEREMIA, 03/22/13) TRIAMTERENE (Verified Adverse Reaction, Intermediate, HYPONATEREMIA, ) Subjective Feels OK no abdominal pain eating OK Objective Last 24 Hour Vital Signs Date Time Temp Pulse Resp B/P (MAP) Pulse Ox O2 Delivery O2 Flow Rate FiO2 06/02/17 16:00 98.2 80 20 134/77 97 Nasal Cannula 2.0 06/02/17 16:00 77 06/02/17 14:50 80 18 99 Nasal Cannula 2.0 28 06/02/17 14:40 77 18 95 Nasal Cannula 2.0 28 06/02/17 12:00 87 06/02/17 12:00 97.8 95 18 162/88 95 Nasal Cannula 2.0 06/02/17 11:35 89 18 99 Nasal Cannula 2.0 28 06/02/17 11:30 88 18 96 Nasal Cannula 2.0 28 06/02/17 09:17 138/78 06/02/17 08:00 99.0 88 17 138/78 96 06/02/17 08:00 87 06/02/17 06:51 Nasal Cannula 2.0 28 06/02/17 06:51 96 Nasal Cannula 2.0 28 06/02/17 06:35 85 18 99 Nasal Cannula 2.0 28 06/02/17 06:30 83 18 96 Nasal Cannula 2.0 28 06/02/17 04:04 165/91 06/02/17 04:00 88 06/02/17 04:00 98.1 80 18 165/91 99 Nasal Cannula 2.0 06/02/17 02:21 Nasal Cannula 06/02/17 02:21 Nasal Cannula 06/02/17 00:00 77 06/02/17 00:00 98.3 92 20 155/80 96 Nasal Cannula 2.0 06/01/17 23:42 Nasal Cannula 06/01/17 23:40 Nasal Cannula 06/01/17 20:29 98.3 102 20 154/74 95 Nasal Cannula 2.0 06/01/17 20:00 92 06/01/17 19:29 88 18 95 Nasal Cannula 2.0 28 06/01/17 19:22 Nasal Cannula 2.0 28 06/01/17 19:21 93 Nasal Cannula 2.0 28 06/01/17 19:20 86 18 93 Nasal Cannula 2.0 28 Intake and Output 06/02/17 06/03/17 19:00 07:00 Intake Total 800 ml Output Total 200 ml Balance 600 ml Intake Oral 800 ml Output Urine Total 200 ml # Voids 4 Laboratory Tests 06/02/17 03:50: Prothrombin Time 10.1, Prothromb Time International Ratio 1.0, Ammonia 7L, Hepatitis C Antibody [Pending], Hepatitis C RNA (PCR) IUs/ml [Pending], Hepatitis C RNA (PCR) log IUs/ml [Pending] Height (Feet): 5 Height (Inches): 1.50 Weight (Pounds): 138 Objective Obese WW NCAT supple Coarse BS RR soft NT no edema alert and nonfocal neuro CANDY CISNEROS Jun 02, 2017 19:18
[2017-06-02 20:00] VITALS: BP 112/68
[2017-06-02] MEDS: Docusate 250mg cap ORAL SCH (20:00)
--- NOTE | 2017-06-02 23:00 | Progress Note ---
DATE: 06/02/2017 CARDIOLOGY PROGRESS NOTE SUBJECTIVE: No respiratory distress. No confusion. Monitor with sinus rhythm and no recurring pauses or bradyarrhythmias. OBJECTIVE: VITAL SIGNS: Blood pressure 136/78, pulse 88, respirations 17, temperature max 99, and oxygen saturation on 2 liters 96%. NECK: Supple. LUNGS: With diminished breath sounds. No wheezing. CARDIAC: Regular rhythm and rate. Normal S1 and S2 with no murmur. ABDOMEN: Soft and nontender. Colostomy bag in place. EXTREMITIES: No edema. LABORATORY DATA: Ammonia level is 7. ABG yesterday 7.39, 54, and 47. IMPRESSIONS: 1. Bradyarrhythmia, likely due to hypercarbia. 2. Chronic respiratory acidosis. 3. Chronic obstructive pulmonary disease. 4. Chronic liver disease due to hepatitis C. 5. Encephalopathy, likely due to hypercarbia. 6. History of colorectal cancer with colostomy. 7. Hypoxia. PLAN: 1. Home O2. 2. Avoid overall oxygenation and suppression of respiratory drive. 3. Monitor acid-base parameters. 4. Titrate lactulose dose. 5. Continue Harvoni treatment if PCR is positive for hepatitis C. 6. Observe for bradyarrhythmias with Harvoni. 7. No current role for antiarrhythmic therapy. Frantz Humphries M.D. DR: RICHARD JOB#: [id number] CC:
[2017-06-03] VITALS: BP 119/73
[2017-06-03] MEDS: Albuterol ud Inhalation HHN SCH ×6 (03:00→23:00)
[2017-06-03 04:00] VITALS: BP 123/71
[2017-06-03 08:00] VITALS: BP 130/65
--- NOTE | 2017-06-03 08:17 | Urology Progress Note ---
Assessment/Plan Assessment/Plan bladder ca hx hematuria hx LUTS possible neurogenic bladder mild pyuria proteinuria monitor clinically surveillance cysto later (as outpt in the office) consider adding anticholinergics d/w pt extensively Subjective Allergies: Coded Allergies: MOXIFLOXACIN HCL (Verified Allergy, Intermediate, Rash, 04/08/12) HYDROCHLOROTHIAZIDE (Verified Adverse Reaction, Intermediate, HYPONATEREMIA, 03/22/13) TRIAMTERENE (Verified Adverse Reaction, Intermediate, HYPONATEREMIA, ) Subjective all noted, voiding, PVR reported minimal Objective Last 24 Hour Vital Signs Date Time Temp Pulse Resp B/P (MAP) Pulse Ox O2 Delivery O2 Flow Rate FiO2 06/03/17 07:10 69 20 98 Room Air 06/03/17 07:01 Room Air 06/03/17 07:01 97 Room Air 06/03/17 06:59 70 18 97 Room Air 06/03/17 04:00 71 06/03/17 04:00 97.9 78 20 123/71 97 Nasal Cannula 1.0 06/03/17 03:25 Nasal Cannula 06/03/17 03:25 Nasal Cannula 06/03/17 00:00 98.2 83 20 119/73 97 Nasal Cannula 1.0 06/03/17 00:00 67 06/02/17 23:14 115 18 99 Nasal Cannula 2.0 06/02/17 23:10 Nasal Cannula 06/02/17 20:00 68 06/02/17 20:00 97.8 77 20 112/68 97 Nasal Cannula 1.0 06/02/17 19:40 88 18 99 Nasal Cannula 2.0 06/02/17 19:30 82 18 96 Nasal Cannula 2.0 06/02/17 19:20 97 Nasal Cannula 2.0 28 06/02/17 19:20 Nasal Cannula 2.0 28 06/02/17 16:00 98.2 80 20 134/77 97 Nasal Cannula 2.0 06/02/17 16:00 77 06/02/17 14:50 80 18 99 Nasal Cannula 2.0 28 06/02/17 14:40 77 18 95 Nasal Cannula 2.0 28 06/02/17 12:00 87 06/02/17 12:00 97.8 95 18 162/88 95 Nasal Cannula 2.0 06/02/17 11:35 89 18 99 Nasal Cannula 2.0 28 06/02/17 11:30 88 18 96 Nasal Cannula 2.0 28 06/02/17 09:17 138/78 Microbiology Date/Time Source Procedure Growth Status 05/31/17 18:30 Nasal Nares Left MRSA Culture - Final NO METHICILLIN RESISTANT STAPH AUREUS... Complete 05/31/17 18:30 Rectum VRE Culture - Final NO VANCOMYCIN RESISTANT ENTEROCOCCUS ... Complete Current Medications Medications (Trade) Dose Ordered Sig/Hasmukh Route PRN Reason Start Time Stop Time Status Last Admin Dose Admin Acetaminophen (Tylenol) 650 mg Q6H PRN ORAL Mild Pain/Temp > 100.5 05/31/17 19:45 06/30/17 19:44 Albuterol Sulfate (Proventil) 2.5 mg Q4HRT HHN 05/31/17 23:00 06/05/17 22:59 06/03/17 06:58 Aspirin (ASA) 81 mg DAILY ORAL 06/01/17 09:00 07/01/17 08:59 06/02/17 09:17 Docusate Sodium (Colace) 250 mg QHS ORAL 05/31/17 21:30 06/30/17 21:29 06/02/17 20:00 Famotidine (Pepcid I.v.) 20 mg Q12HR IVP 05/31/17 21:30 06/30/17 21:29 06/02/17 20:00 Heparin Sodium (Porcine) (Heparin 5000 units/ml) 5,000 units EVERY 12 HOURS SUBQ 05/31/17 21:30 06/30/17 21:29 06/02/17 20:01 Hydralazine HCl (Apresoline) 10 mg Q6H PRN ORAL SBP above 160 06/01/17 16:00 07/01/17 15:59 06/02/17 04:04 Levothyroxine Sodium (Synthroid) 100 mcg ACBREAKFAST ORAL 06/01/17 06:30 07/01/17 06:29 06/03/17 05:44 Lisinopril (Zestril) 10 mg DAILY ORAL 06/01/17 09:00 07/01/17 08:59 06/02/17 09:17 Lorazepam (Ativan) 1 mg Q6H PRN ORAL Agitation 05/31/17 19:45 06/07/17 19:44 Methadone HCl (Methadone HCl) 50 mg DAILY ORAL 06/01/17 09:00 06/08/17 08:59 06/02/17 09:16 Ondansetron HCl (Zofran ODT) 4 mg Q6H PRN ORAL Nausea & Vomiting 05/31/17 19:45 06/30/17 19:44 Height (Feet): 5 Height (Inches): 1.50 Weight (Pounds): 138 Objective exam stable, abdomen soft BAMSHAD,GIOVANNI Jun 03, 2017 08:17
[2017-06-03] MEDS ORDERED: LISINOPRIL10 MG ORAL (09:00)
[2017-06-03] MEDS: Aspirin Baby 81mg ORAL SCH (09:33)
[2017-06-03] MEDS: Lisinopril 10mg tab ORAL SCH (09:34)
[2017-06-03] MEDS: Heparin 5000 units/ml inj SUBQ SCH ×2 (09:37→20:48)
--- NOTE | 2017-06-03 11:37 | General Progress Note ---
Assessment/Plan Assessment/Plan Assessment - Hepatitis C - COPD - chronic pain - GERD - Obesity Recommendations - follow mental status off Rx - f/u Hepatitis C PCR - consider outpt HCV eradication if PCR (+) Subjective Allergies: Coded Allergies: MOXIFLOXACIN HCL (Verified Allergy, Intermediate, Rash, 04/08/12) HYDROCHLOROTHIAZIDE (Verified Adverse Reaction, Intermediate, HYPONATEREMIA, 03/22/13) TRIAMTERENE (Verified Adverse Reaction, Intermediate, HYPONATEREMIA, ) Subjective Feels OK no abdominal pain eating OK no events overnight Objective Last 24 Hour Vital Signs Date Time Temp Pulse Resp B/P (MAP) Pulse Ox O2 Delivery O2 Flow Rate FiO2 06/03/17 10:49 99 18 95 Room Air 21 06/03/17 09:34 130/65 06/03/17 08:00 109 06/03/17 08:00 98.2 113 20 130/65 91 Room Air 06/03/17 07:10 69 20 98 Room Air 06/03/17 07:01 Room Air 21 06/03/17 07:01 97 Room Air 21 06/03/17 06:59 70 18 97 Room Air 21 06/03/17 04:00 71 06/03/17 04:00 97.9 78 20 123/71 97 Nasal Cannula 1.0 06/03/17 03:25 Nasal Cannula 06/03/17 03:25 Nasal Cannula 06/03/17 00:00 98.2 83 20 119/73 97 Nasal Cannula 1.0 06/03/17 00:00 67 06/02/17 23:14 115 18 99 Nasal Cannula 2.0 06/02/17 23:10 Nasal Cannula 06/02/17 20:00 68 06/02/17 20:00 97.8 77 20 112/68 97 Nasal Cannula 1.0 06/02/17 19:40 88 18 99 Nasal Cannula 2.0 06/02/17 19:30 82 18 96 Nasal Cannula 2.0 06/02/17 19:20 97 Nasal Cannula 2.0 28 06/02/17 19:20 Nasal Cannula 2.0 28 06/02/17 16:00 98.2 80 20 134/77 97 Nasal Cannula 2.0 06/02/17 16:00 77 06/02/17 14:50 80 18 99 Nasal Cannula 2.0 06/02/17 14:40 77 18 95 Nasal Cannula 2.0 28 06/02/17 12:00 87 06/02/17 12:00 97.8 95 18 162/88 95 Nasal Cannula 2.0 Height (Feet): 5 Height (Inches): 1.50 Weight (Pounds): 138 Objective Obese WW NCAT supple Coarse BS RR soft NT no edema alert and nonfocal neuro CANDY CISNEROS Jun 03, 2017 11:37
[2017-06-03 12:00] VITALS: BP 134/81
[2017-06-03 16:00] VITALS: BP 127/82
--- NOTE | 2017-06-03 17:28 | Pulmonology Progress Note ---
Assessment/Plan Assessment/Plan 1. Respiratory failure, extubated 2. COPD with respiratory acidosis 3. Hepatic encephalopathy, resolved 4. Arrhythmia 5. Hypertension. 6. Bladder cancer 7. History of colorectal cancer with colostomy. seems stable plan [facility] when bed available Subjective Interval Events: "I can't walk!" Constitutional: Reports: fatigue Respiratory: Reports: shortness of breath Allergies: Coded Allergies: MOXIFLOXACIN HCL (Verified Allergy, Intermediate, Rash, 04/08/12) HYDROCHLOROTHIAZIDE (Verified Adverse Reaction, Intermediate, HYPONATEREMIA, 03/22/13) TRIAMTERENE (Verified Adverse Reaction, Intermediate, HYPONATEREMIA, ) Objective Last 24 Hour Vital Signs Date Time Temp Pulse Resp B/P (MAP) Pulse Ox O2 Delivery O2 Flow Rate FiO2 06/03/17 16:00 97.7 75 20 127/82 92 Nasal Cannula 1.0 06/03/17 16:00 79 06/03/17 15:12 87 20 100 Room Air 06/03/17 15:05 78 18 95 Room Air 21 06/03/17 12:00 97.9 96 20 134/81 92 Nasal Cannula 1.0 06/03/17 12:00 104 06/03/17 11:00 91 20 97 Room Air 21 06/03/17 10:49 99 18 95 Room Air 21 06/03/17 09:34 130/65 06/03/17 08:00 109 06/03/17 08:00 98.2 113 20 130/65 91 Room Air 06/03/17 07:10 69 20 98 Room Air 21 06/03/17 07:01 Room Air 21 06/03/17 07:01 97 Room Air 21 06/03/17 06:59 70 18 97 Room Air 21 06/03/17 04:00 71 06/03/17 04:00 97.9 78 20 123/71 97 Nasal Cannula 1.0 06/03/17 03:25 Nasal Cannula 06/03/17 03:25 Nasal Cannula 06/03/17 00:00 98.2 83 20 119/73 97 Nasal Cannula 1.0 06/03/17 00:00 67 06/02/17 23:14 115 18 99 Nasal Cannula 2.0 28 06/02/17 23:10 Nasal Cannula 06/02/17 20:00 68 06/02/17 20:00 97.8 77 20 112/68 97 Nasal Cannula 1.0 06/02/17 19:40 88 18 99 Nasal Cannula 2.0 28 06/02/17 19:30 82 18 96 Nasal Cannula 2.0 28 06/02/17 19:20 97 Nasal Cannula 2.0 28 06/02/17 19:20 Nasal Cannula 2.0 28 Intake and Output 06/03/17 06/04/17 19:00 07:00 Intake Total 80 ml Output Total 450 ml Balance -370 ml Other 80 ml Output Urine Total 450 ml # Voids 2 General Appearance: no acute distress Respiratory/Chest: lungs clear, decreased breath sounds Cardiovascular: normal rate Abdomen: soft, non tender, other - colostomy Extremities: no edema Microbiology Date/Time Source Procedure Growth Status 05/31/17 18:30 Nasal Nares Left MRSA Culture - Final NO METHICILLIN RESISTANT STAPH AUREUS... Complete 05/31/17 18:30 Rectum VRE Culture - Final NO VANCOMYCIN RESISTANT ENTEROCOCCUS ... Complete Current Medications Medications (Trade) Dose Ordered Sig/Hasmukh Route PRN Reason Start Time Stop Time Status Last Admin Dose Admin Acetaminophen (Tylenol) 650 mg Q6H PRN ORAL Mild Pain/Temp > 100.5 05/31/17 19:45 06/30/17 19:44 Albuterol Sulfate (Proventil) 2.5 mg Q4HRT HHN 05/31/17 23:00 06/05/17 22:59 06/03/17 15:04 Aspirin (ASA) 81 mg DAILY ORAL 06/01/17 09:00 07/01/17 08:59 06/03/17 09:33 Docusate Sodium (Colace) 250 mg QHS ORAL 05/31/17 21:30 06/30/17 21:29 06/02/17 20:00 Famotidine (Pepcid I.v.) 20 mg Q12HR IVP 05/31/17 21:30 06/30/17 21:29 06/02/17 20:00 Heparin Sodium (Porcine) (Heparin 5000 units/ml) 5,000 units EVERY 12 HOURS SUBQ 05/31/17 21:30 06/30/17 21:29 06/03/17 09:37 Hydralazine HCl (Apresoline) 10 mg Q6H PRN ORAL SBP above 160 06/01/17 16:00 07/01/17 15:59 06/02/17 04:04 Levothyroxine Sodium (Synthroid) 100 mcg ACBREAKFAST ORAL 06/01/17 06:30 07/01/17 06:29 06/03/17 05:44 Lisinopril (Zestril) 10 mg DAILY ORAL 06/01/17 09:00 07/01/17 08:59 06/03/17 09:34 Lorazepam (Ativan) 1 mg Q6H PRN ORAL Agitation 05/31/17 19:45 06/07/17 19:44 Methadone HCl (Methadone HCl) 50 mg DAILY ORAL 06/01/17 09:00 06/08/17 08:59 06/03/17 09:36 Ondansetron HCl (Zofran ODT) 4 mg Q6H PRN ORAL Nausea & Vomiting 05/31/17 19:45 06/30/17 19:44 RIAZ FRAGOSO Jun 03, 2017 17:28
[2017-06-03 20:00] VITALS: BP 140/80
[2017-06-03] MEDS: Docusate 250mg cap ORAL SCH (20:40)
[2017-06-04] VITALS: BP 136/87
[2017-06-04] MEDS: Albuterol ud Inhalation HHN SCH ×3 (03:00→11:00)
[2017-06-04 04:00] VITALS: BP 140/80
--- NOTE | 2017-06-04 05:30 | Progress Note ---
DATE: 06/03/2017 CARDIOLOGY PROGRESS NOTE SUBJECTIVE: The patient remains without respiratory distress. Saturating adequately with 2 liters of nasal cannula. She has been extubated for several days now off ventilator support. OBJECTIVE: VITAL SIGNS: Blood pressure 127/82, pulse 75, respirations 20, and afebrile. Monitored rhythm, sinus, sinus arrhythmia and no pauses. No bradyarrhythmias noted. LUNGS: Good breath sounds. No wheezing. Diminished at bases. HEART: Regular rhythm and rate. Normal S1 and S2 with a fourth heart sound. ABDOMEN: Soft. Colostomy bag in place. EXTREMITIES: No edema. Symmetric weakness of the lower extremities. IMPRESSION: 1. Transient bradycardia is likely due to hypercarbia. 2. Chronic obstructive pulmonary disease exacerbation status post respiratory failure. 3. Acute on chronic respiratory acidosis, resolved. 4. Hepatic and metabolic encephalopathy, resolved. 5. Colostomy. 6. Bladder cancer. 7. Hypertension. PLAN: 1. Inhaled bronchodilators. 2. Steroid taper. 3. Nasal oxygen. 4. PT and OT. 5. No antiarrhythmic therapy indicated. 6. Monitor acid-base parameters. Frantz Humphries M.D. DR: RICHARD JOB#: [id number] CC:
[2017-06-04 08:00] VITALS: BP 142/75
--- NOTE | 2017-06-04 08:58 | Urology Progress Note ---
Assessment/Plan Assessment/Plan bladder ca hx hematuria hx LUTS possible neurogenic bladder mild pyuria proteinuria monitor clinically surveillance cysto later (as outpt in the office) consider adding anticholinergics consider checking urine cx d/w pt extensively Subjective Allergies: Coded Allergies: MOXIFLOXACIN HCL (Verified Allergy, Intermediate, Rash, 04/08/12) HYDROCHLOROTHIAZIDE (Verified Adverse Reaction, Intermediate, HYPONATEREMIA, 03/22/13) TRIAMTERENE (Verified Adverse Reaction, Intermediate, HYPONATEREMIA, ) Subjective all noted, voiding fair, awaiting tx to rehab/SNF Objective Last 24 Hour Vital Signs Date Time Temp Pulse Resp B/P (MAP) Pulse Ox O2 Delivery O2 Flow Rate FiO2 06/04/17 06:45 75 18 99 Nasal Cannula 2.0 06/04/17 06:45 Nasal Cannula 06/04/17 06:45 Nasal Cannula 2.0 28 06/04/17 06:45 99 Nasal Cannula 2.0 28 06/04/17 04:00 97.9 70 20 140/80 98 Nasal Cannula 1.0 06/04/17 04:00 65 06/04/17 03:29 Nasal Cannula 06/04/17 03:29 Nasal Cannula 06/04/17 00:00 79 06/04/17 00:00 97.9 75 20 136/87 98 Nasal Cannula 1.0 06/03/17 23:45 Nasal Cannula 06/03/17 23:44 Nasal Cannula 06/03/17 20:00 98.1 79 20 140/80 97 Nasal Cannula 1.0 06/03/17 20:00 81 06/03/17 19:34 Nasal Cannula 06/03/17 19:33 62 18 99 Nasal Cannula 2.0 28 06/03/17 19:33 Nasal Cannula 2.0 28 06/03/17 19:33 99 Nasal Cannula 2.0 28 06/03/17 16:00 97.7 75 20 127/82 92 Nasal Cannula 1.0 06/03/17 16:00 79 06/03/17 15:12 87 20 100 Room Air 21 06/03/17 15:05 78 18 95 Room Air 21 06/03/17 12:00 97.9 96 20 134/81 92 Nasal Cannula 1.0 06/03/17 12:00 104 06/03/17 11:00 91 20 97 Room Air 21 06/03/17 10:49 99 18 95 Room Air 21 06/03/17 09:34 130/65 Microbiology Date/Time Source Procedure Growth Status 05/31/17 18:30 Nasal Nares Left MRSA Culture - Final NO METHICILLIN RESISTANT STAPH AUREUS... Complete 05/31/17 18:30 Rectum VRE Culture - Final NO VANCOMYCIN RESISTANT ENTEROCOCCUS ... Complete Current Medications Medications (Trade) Dose Ordered Sig/Hasmukh Route PRN Reason Start Time Stop Time Status Last Admin Dose Admin Acetaminophen (Tylenol) 650 mg Q6H PRN ORAL Mild Pain/Temp > 100.5 05/31/17 19:45 06/30/17 19:44 Albuterol Sulfate (Proventil) 2.5 mg Q4HRT HHN 05/31/17 23:00 06/05/17 22:59 06/03/17 15:04 Aspirin (ASA) 81 mg DAILY ORAL 06/01/17 09:00 07/01/17 08:59 06/03/17 09:33 Docusate Sodium (Colace) 250 mg QHS ORAL 05/31/17 21:30 06/30/17 21:29 06/03/17 20:40 Famotidine (Pepcid I.v.) 20 mg Q12HR IVP 05/31/17 21:30 06/30/17 21:29 06/03/17 20:40 Heparin Sodium (Porcine) (Heparin 5000 units/ml) 5,000 units EVERY 12 HOURS SUBQ 05/31/17 21:30 06/30/17 21:29 06/03/17 20:48 Hydralazine HCl (Apresoline) 10 mg Q6H PRN ORAL SBP above 160 06/01/17 16:00 07/01/17 15:59 06/02/17 04:04 Levothyroxine Sodium (Synthroid) 100 mcg ACBREAKFAST ORAL 06/01/17 06:30 07/01/17 06:29 06/04/17 06:05 Lisinopril (Zestril) 10 mg DAILY ORAL 06/01/17 09:00 07/01/17 08:59 06/03/17 09:34 Lorazepam (Ativan) 1 mg Q6H PRN ORAL Agitation 05/31/17 19:45 06/07/17 19:44 Methadone HCl (Methadone HCl) 50 mg DAILY ORAL 06/01/17 09:00 06/08/17 08:59 06/03/17 09:36 Ondansetron HCl (Zofran ODT) 4 mg Q6H PRN ORAL Nausea & Vomiting 05/31/17 19:45 06/30/17 19:44 Height (Feet): 5 Height (Inches): 1.50 Weight (Pounds): 138 Objective exam stable, abdomen soft BAMSHAD,GIOVANNI Jun 04, 2017 08:58
[2017-06-04] MEDS: Aspirin Baby 81mg ORAL SCH (09:07)
[2017-06-04] MEDS: Lisinopril 10mg tab ORAL SCH (09:07)
[2017-06-04] MEDS: Heparin 5000 units/ml inj SUBQ SCH (09:14)
[2017-06-04 12:01] VITALS: BP 158/98
[2017-06-04 13:02] VITALS: BP 158/98
[2017-06-04] MEDS ORDERED: Flu Vaccine Quadrivalent 0.5ml IM ONE (14:30)
--- NOTE | 2017-06-04 16:40 | General Progress Note ---
Assessment/Plan Assessment/Plan Assessment - Hepatitis C - COPD - chronic pain - GERD - Obesity Recommendations - follow mental status - f/u Hepatitis C PCR - consider outpt HCV eradication if PCR (+) - patient advised to f/u with me as outpt Subjective Allergies: Coded Allergies: MOXIFLOXACIN HCL (Verified Allergy, Intermediate, Rash, 04/08/12) HYDROCHLOROTHIAZIDE (Verified Adverse Reaction, Intermediate, HYPONATEREMIA, 03/22/13) TRIAMTERENE (Verified Adverse Reaction, Intermediate, HYPONATEREMIA, ) Subjective Feels OK no abdominal pain eating OK no events overnight for discharge today Objective Last 24 Hour Vital Signs Date Time Temp Pulse Resp B/P (MAP) Pulse Ox O2 Delivery O2 Flow Rate FiO2 06/04/17 13:02 98.2 94 18 158/98 94 Nasal Cannula 1.0 06/04/17 12:01 98.2 94 18 158/98 93 Nasal Cannula 1.0 06/04/17 12:00 98 06/04/17 11:17 Nasal Cannula 06/04/17 11:17 Nasal Cannula 06/04/17 09:07 142/75 06/04/17 08:00 98.2 77 18 142/75 92 Nasal Cannula 1.0 06/04/17 08:00 67 06/04/17 06:45 75 18 99 Nasal Cannula 2.0 28 06/04/17 06:45 Nasal Cannula 06/04/17 06:45 Nasal Cannula 2.0 28 06/04/17 06:45 99 Nasal Cannula 2.0 28 06/04/17 04:00 97.9 70 20 140/80 98 Nasal Cannula 1.0 06/04/17 04:00 65 06/04/17 03:29 Nasal Cannula 06/04/17 03:29 Nasal Cannula 06/04/17 00:00 79 06/04/17 00:00 97.9 75 20 136/87 98 Nasal Cannula 1.0 06/03/17 23:45 Nasal Cannula 06/03/17 23:44 Nasal Cannula 06/03/17 20:00 98.1 79 20 140/80 97 Nasal Cannula 1.0 06/03/17 20:00 81 06/03/17 19:34 Nasal Cannula 06/03/17 19:33 62 18 99 Nasal Cannula 2.0 28 06/03/17 19:33 Nasal Cannula 2.0 28 06/03/17 19:33 99 Nasal Cannula 2.0 28 Height (Feet): 5 Height (Inches): 1.50 Weight (Pounds): 138 Objective Obese WW NCAT supple Coarse BS RR soft NT no edema alert and nonfocal neuro CANDY CISNEROS Jun 04, 2017 16:40
--- NOTE | 2017-06-05 02:00 | Progress Note ---
DATE: 06/04/2017 CARDIOLOGY PROGRESS NOTE SUBJECTIVE: The patient is awake and alert. Follows commands. Her hearing is slightly impaired. The patient has no shortness of breath. OBJECTIVE: VITAL SIGNS: Monitored sinus rhythm. Occasional atrial ectopics. Blood pressure 158/98, pulse 94, and respiratory rate 18. Earlier, blood pressure 140/80. LUNGS: Few rhonchi. No wheezing. HEART: Regular rhythm and rate. Normal S1 and S2 with a fourth heart sound. ABDOMEN: Soft. EXTREMITIES: No edema. IMPRESSION: 1. No recurrence of bradycardia. I suspect earlier episodes were due to hypercarbia. 2. Chronic obstructive pulmonary disease exacerbation, now stabilized. 3. Hypertensive heart disease with episodes of elevated blood pressures now. 4. Acute on chronic respiratory acidosis, resolved. 5. Colostomy with history of colon cancer. 6. Bladder cancer. 7. Resolved hepatic and metabolic encephalopathy. PLAN: 1. Continue current respiratory regimen. 2. Home O2. 3. No antiarrhythmics indicated. 4. Reassess need for additional antihypertensive therapy as an outpatient. 5. Stable for discharge on current regimen. Frantz Humphries M.D. DR: Emeka JOB#: [id number] CC:
--- NOTE | 2017-06-06 14:50 | Discharge Summary ---
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
--- NOTE | 2017-06-07 01:00 | Discharge Summary 2 SIG ---
DATE OF ADMISSION: 05/31/2017 DATE OF DISCHARGE: 06/04/2017 CONSULTANTS: 1. Frantz Humphries M.D. 2. Umberto Thomas M.D. 3. Vinh Leonard M.D. BRIEF HOSPITAL COURSE: The patient is an 82-year-old female, who was admitted to [facility] for altered mental status. She was found to be in respiratory failure and had hepatic encephalopathy. She was intubated due to hypercapnia. She was subsequently extubated and was transferred [facility] to [facility]. 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 She had a prior stroke in 1998 with good recovery. She was recently been diagnosed with bladder CA and is being followed by Dr. Leonard. She is status post TURBT three months ago and had a recent course of intravesical BCG. The patient has history of urinary retention and with some urinary frequency. She was given lactulose. Ammonia level was checked and was normal. She had an episode of bradyarrhythmia. She underwent cardiac monitoring and the patient's arrhythmia was asymptomatic that has occurred only with sleep. Paroxysmal bradyarrhythmia possibly precipitated by episodes of respiratory insufficiency and possibly hypercarbia. There is no indication for any pacemaker placement. There was no recurrence of bradycardia episodes. She was given rehabilitation and was subsequently transferred to [facility]. FINAL DIAGNOSES: 1. Acute respiratory failure, extubated. 2. Chronic obstructive pulmonary disease with respiratory acidosis. 3. Hepatic encephalopathy, resolved. 4. Arrhythmia. 5. Hypertension. 6. Bladder cancer. 7. History of colorectal cancer with colostomy. DISPOSITION: The patient was discharged to SNF. DISCHARGE MEDICATIONS: Refer to medication list. [place] Branch M.D. I have been assigned to dictate discharge summary on this account and I was not involved in the patient's management. Emmy Patel N.P. DR: BHARATH JOB#: [id number] CC: VERO
== END 2017-06-04 15:00 | DRG 189 ==
LOC: 2W 05-31 17:49
DX: J96.02 Acute respiratory failure with hypercapnia (principal); G93.41 Metabolic encephalopathy; E87.2 Acidosis; J44.9 Chronic obstructive pulmonary disease, unspecified; C67.9 Malignant neoplasm of bladder, unspecified; K72.90 Hepatic failure, unspecified without coma; I11.9 Hypertensive heart disease without heart failure; F11.20 Opioid dependence, uncomplicated; I49.8 Other specified cardiac arrhythmias; Z85.038 Personal history of other malignant neoplasm of large intestine; Z93.3 Colostomy status; B19.20 Unspecified viral hepatitis C without hepatic coma; Z86.718 Personal history of other venous thrombosis and embolism; E78.5 Hyperlipidemia, unspecified; Z86.73 Personal history of transient ischemic attack (TIA), and cerebral infarction without residual deficits; Z88.8 Allergy status to other drugs, medicaments and biological substances; Z87.891 Personal history of nicotine dependence; K76.9 Liver disease, unspecified; E66.9 Obesity, unspecified
CPT/HCPCS: 36415; 36600; 80053; 81003; 82140; 82803; 85007; 85025; 85610; 87081; 87522; 90630; 94640; 94664; 94760

== ENCOUNTER 2017-07-06 09:36 | Inpatient (IN) | payer MEDICARE, OTHER ==
[~2017-07-06] VITALS: Ht 157.5 cm; Wt 62.1 kg
[2017-07-06] MEDS: Ipratropium 0.02% Inh Soln 2.5ml UD HHN SCH (03:00)
[2017-07-06] MEDS: Levalbuterol Inh UD 1.25mg/0.5ml HHN SCH (03:00)
[~2017-07-06 09:36] MED LIST changes: +ACETAMINOP160 MG/55 ORAL; +ALBUTEROL2.5 MG/3 M INH; +ASPIRIN81 MG ORAL; +BACTROBAN CR1 APPLIC TOPIC; +COLACE100 MG ORAL; +DECADRON2 MG IVP; +HEPARIN SO5000 UNIT2 SUBQ; +HYDRALAZINE HCL10 MG IVP; +LEVOTHYROXINE100 MCG ORAL; +LISINOPRIL10 MG ORAL; +LORAZEPAM4 MG/1 M1 IV; +METHADONE H5 MG/5 M1 PO; +MORPHINE 11 MG/2 ML IV; +PEPCID20 MG IV; +ZOFRAN 4 MG4 MG/2 ML IV
[2017-07-06 09:37] VITALS: BP 97/45
--- NOTE | 2017-07-06 10:07 | Emergency Room Report ---
History of Present Illness General Chief Complaint: Upper Respiratory Illness Source: Patient Present Illness HPI 82-year-old female [facility] for low oxygen rate. Patient endorses history of COPD, "I'm always coughing." Denies recent worsening of cough, change of sputum or increase in sputum, chest pain. Denies recent fever chills or body aches Per EMR patient was hospitalized one month prior for respiratory failure, was intubated. Allergies: Coded Allergies: MOXIFLOXACIN HCL (Verified Allergy, Intermediate, Rash, 04/08/12) HYDROCHLOROTHIAZIDE (Verified Adverse Reaction, Intermediate, HYPONATEREMIA, 03/22/13) TRIAMTERENE (Verified Adverse Reaction, Intermediate, HYPONATEREMIA, ) Patient History Past Medical History: COPD Past Surgical History: none Pertinent Family History: none Social History: Denies: smoking, alcohol use, drug use Now: No Immunizations: UTD Reviewed Nursing Documentation: PMH: Agreed, PSxH: Agreed Nursing Documentation-PMH Hx Cardiac Problems: Yes Hx Hypertension: Yes Hx Asthma: Yes Hx COPD: Yes Hx Cancer: Yes - Rectal cancer Hx Gastrointestinal Problems: Yes Hx Neurological Problems: Yes Hx Cerebrovascular Accident: Yes Hx Transient Ischemic Attacks: No Hx Dementia: No Hx Alzheimer's Disease: No Hx Parkinson's Disease: No Hx Meningitis: No Hx Encephalitis: No Hx Seizures: No Hx Epilepsy: No Hx Multiple Sclerosis: No Hx Cerebral Palsy: No Hx Amyotrophic Lat Sclerosis: No Hx Guillian-[place] Syndrome: No Hx Paralysis: No Hx Peripheral Neuropathy: No Hx Spinal Cord Injury: No Hx Head Trauma: No Hx Traumatic Brain Injury: No Hx Concentration Difficulty: No Hx Speech Problem: Yes - 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 Hx Tremors: No Hx Vertigo: No Hx Dizziness: No Hx Syncope: No Hx Headaches: No Hx Aphasia: No Hx Dysphasia: No Hx Numbness: No Hx Weakness: No Hx Fatigue: No Hx Neurologic Surgery: No Hx Brain Shunt: No Review of Systems All Other Systems: negative except mentioned in HPI Physical Exam Vital Signs Date Time Temp Pulse Resp B/P (MAP) Pulse Ox O2 Delivery O2 Flow Rate FiO2 07/06/17 09:27 98.1 86 20 112/60 93 Nasal Cannula 6.0 Sp02 EP Interpretation: reviewed, normal General Appearance: normal inspection, well appearing, no apparent distress, alert, GCS 15, non-toxic Head: normocephalic, atraumatic Eyes: bilateral eye PERRL, bilateral eye EOMI ENT: normal ENT inspection, hearing grossly normal, normal pharynx, no angioedema, normal voice, TMs + canals normal, uvula midline, moist mucus membranes Neck: normal inspection, full range of motion, supple, thyroid normal, no meningismus, no bony tend Respiratory: normal inspection, no respiratory distress, no retraction, no accessory muscle use, rhonchi, speaking full sentences, wheezing Cardiovascular #1: regular rate, rhythm, no edema, no JVD, normal capillary refill Gastrointestinal: normal inspection, normal bowel sounds, non tender, soft, no mass, no peritonitis, non-distended, no guarding, no hernia, no pulsatile mass Genitourinary: no CVA tenderness Musculoskeletal: normal inspection, back normal, normal range of motion, no calf tenderness, pelvis stable, Aidan's Sign negative Neurologic: normal inspection, alert, oriented x3, responsive, mushroom cultivator III-XII nml as tested, motor strength/tone normal, cerebellar normal, normal gait, speech normal Psychiatric: normal inspection, judgement/insight normal, mood/affect normal, no suicidal/homicidal ideation, no delusions Skin: normal inspection, normal color, no rash Lymphatic: normal inspection, no adenopathy Medical Decision Making Diagnostic Impression: Primary Impression: Upper respiratory infection Qualified Codes: J06.9 - Acute upper respiratory infection, unspecified Additional Impressions: Acute exacerbation of chronic obstructive pulmonary disease (COPD) Leukocytosis Qualified Codes: D72.829 - Elevated white blood cell count, unspecified Pneumonia Qualified Codes: J18.1 - Lobar pneumonia, unspecified organism ER Course 82-year-old female with hypoxia, known COPD To have rhonchi and wheezing likely acute COPD exacerbation Was placed on BiPAP given tachypnea and bilateral wheezing Pneumonia also possible given rhonchi on exam As giving empiric antibiotics, blood cultures are pending elevated leukocytosis Chest x-ray with possible right-sided pneumonia Mild hyponatremia No other significant metabolic abnormalities ANTOINE admission Endorsed to Dr Branch as previous admitting physician [id number] EKG Diagnostic Results Rate: tachycardiac Rhythm: NSR ST Segments: no acute changes ASA given to the pt in ED: No Rhythm Strip Diag. Results EP Interpretation: yes Rate: 82 Rhythm: NSR, no PVC's, no ectopy Chest X-Ray Diagnostic Results Chest X-Ray Diagnostic Results : Chest X-Ray Ordered: Yes Indication: Shortness of Breath EP Interpretation: Yes Interpretation: no consolidation, no effusion, no pneumothorax, no acute cardiopulmonary disease Impression: Other - No lobar PNA Electronically Signed by: Dr Riaz Hwang MD Other X-Ray Diagnostic Results Other X-Ray Diagnostic Results : # of Views/Limited Vs Complete: 1 View Last Vital Signs Date Time Temp Pulse Resp B/P (MAP) Pulse Ox O2 Delivery O2 Flow Rate FiO2 07/06/17 09:37 81 28 97/45 93 Nasal Cannula 4.0 07/06/17 09:27 98.1 Status: improved Disposition: ADMITTED INPATIENT Condition: Critical RIAZ HWANG M.D. Jul 06, 2017 10:07
[2017-07-06] MEDS ORDERED: Solu-MEDROL 125mg Inj IVP ONE (10:15)
[2017-07-06] MEDS ORDERED: Albuterol/Ipratropium 3ml neb HHN SCH ×3 (10:15→19:00)
[2017-07-06] MEDS ORDERED: cefTRIAXone 2 GM in NS 55 ML IVPB ONE (10:15)
[2017-07-06 10:41] LABS: HEMATOCRIT 40.6 % (37.0-47.0); HEMOGLOBIN 13.2 G/DL (12.0-16.0); MEAN CORPUSCULAR VOLUME 94 FL (80-99); PLATELET COUNT 156 K/UL (150-450); RED BLOOD COUNT 4.33 M/UL (4.20-5.40); RED CELL DISTRIBUTION WIDTH 11.6 % (11.6-14.8); WHITE BLOOD COUNT 20.9 K/UL (4.8-10.8)
[2017-07-06 10:51] LABS: ANION GAP 2 mmol/L (5-15); BLOOD UREA NITROGEN 34 mg/dL (7-18); CALCIUM 7.2 MG/DL (8.5-10.1); CARBON DIOXIDE 39 MMOL/L (21-32); CHLORIDE 89 MMOL/L (98-107); CREATININE 0.8 MG/DL (0.55-1.30); SODIUM 129 MMOL/L (136-145)
[2017-07-06 11:04] LABS: ALANINE AMINOTRANSFERASE 29 U/L (12-78); ALBUMIN 2.1 G/DL (3.4-5.0); ALBUMIN/GLOBULIN RATIO 0.6 (1.0-2.7); ALKALINE PHOSPHATASE 61 U/L (46-116); ASPARTATE AMINO TRANSFERASE 25 U/L (15-37); BILIRUBIN,TOTAL 0.7 MG/DL (0.2-1.0); CKMB 0.9 NG/ML (0.0-3.6); CREATINE KINASE 45 U/L (26-308)
[2017-07-06 11:30] VITALS: BP 110/46
[2017-07-06 13:25] VITALS: BP 104/65
[2017-07-06] MEDS ORDERED: METOPROLOL TART25 MG ORAL (13:58)
[2017-07-06] MEDS ORDERED: Albuterol/Ipratropium 3ml neb HHN PRN (15:15)
[2017-07-06] MEDS ORDERED: Nitroglycerin Subl 0.4mg tab SL PRN (15:15)
[2017-07-06] MEDS ORDERED: Milk of Magnesia 30ml Ud ORAL PRN (15:15)
[2017-07-06 16:00] VITALS: BP 101/87
[2017-07-06] MEDS: Solu-MEDROL 40mg Inj IVP SCH (17:45)
[2017-07-06] MEDS: Docusate 250mg cap ORAL SCH (17:48)
--- NOTE | 2017-07-06 19:02 | Consultation ---
Consult Note Assessment/Plan #[id number] afib wtih rvr respiraotyr distress copd exacerbation hypercapnia htn, hld, hypothryoidism steroids nebs avoid b agnoists bipap prn distress o2 and titrate homemeds abx fu cxr ABBE VÁZQUEZ DO Jul 06, 2017 19:02
[2017-07-06 20:00] VITALS: BP 131/73
[2017-07-06] MEDS ORDERED: Heparin 5000 units/ml inj SUBQ SCH (21:00)
[2017-07-06] MEDS: Metoprolol 25mg tab ORAL SCH (22:14)
[2017-07-06] MEDS: Heparin 5000 units/ml inj SUBQ SCH (22:16)
[2017-07-06] MEDS: Tamsulosin 0.4mg cap ORAL SCH (22:17)
[2017-07-07] VITALS: BP 125/65
--- NOTE | 2017-07-07 01:00 | History and Physical Report ---
DATE OF ADMISSION: 07/06/2017 CHIEF COMPLAINT AND REASON FOR HOSPITALIZATION: The patient admitted with shortness of breath and respiratory failure. HISTORY OF PRESENT ILLNESS: The patient is a resident of the rehabilitation center in [place], was recently hospitalized at [facility] with an exacerbation of COPD, and comes again with shortness of breath and wheezing. The patient in [id number] respiratory distress. She has had recurrent hospitalizations for her pulmonary problem. She had recently been in [place] for altered mental status and hepatic encephalopathy and was intubated for high pCO2. 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 ALLERGIES: Hydrochlorothiazide, moxifloxacin, and triamterene. MEDICATIONS: From the F include multivitamins, Colace, Zantac, aspirin, atorvastatin, diltiazem, Flomax, Advair, furosemide, heparin subcutaneous, inhalation therapy with Atrovent, levothyroxine, lisinopril, methadone, metoprolol, Prilosec, prednisone. HABITS: She is a former smoker. SYSTEM REVIEW: HEAD, EYES, EARS, NOSE, THROAT: Vision and hearing are good. She is edentulous. PULMONARY: COPD as above. CARDIAC: History of supraventricular arrhythmias. No definite OH. GASTROINTESTINAL: History of colostomy and colon cancer. GENITOURINARY: History of bladder cancer as above. NEUROLOGIC: She had a prior CVA with good recovery in 1998. PHYSICAL EXAMINATION: GENERAL: The patient is alert lady in moderate respiratory distress, on BiPAP. VITAL SIGNS: The pulse is 88, respirations 23, blood pressure 104/65, O2 saturation 99% on BiPAP 50%, temperature earlier 98.1. HEAD, EYES, EARS, NOSE, THROAT: Sclerae are nonicteric. Ocular motions intact in all directions. Oral mucosa moist. She is edentulous. NECK: No adenopathy or thyroid enlargement. LUNGS: Distant breath sounds. There is severe wheezing and retractions. ABDOMEN: Soft. I am unable to feel liver or spleen. EXTREMITIES: Show 1+ edema. LABORATORY DATA: Pertinent labs show sodium 129, potassium is 4, and creatinine 0.8. Troponin 0.007. PH showed 7.44, pCO2 of 65.8, pO2 is 50.4. White count 20.9, hemoglobin 13.2. IMPRESSION: 1. Chronic obstructive pulmonary disease and asthma with acute exacerbation. 2. Acute on chronic respiratory failure. 3. History of recent influenza. 4. History of hepatitis C and prior hepatic encephalopathy. 5. Anxiety. 6. History of methadone maintenance. 7. History of colon cancer and colostomy. 8. History of bladder cancer. PLAN: Detailed orders have been given with steroids, nebulizer treatments, and correction of her electrolytes. Her condition is gravely ill and we will watch closely. Rosalino Montesinos M.D. DR: TORRIE JOB#: [id number] CC:
[2017-07-07] MEDS: Solu-MEDROL 40mg Inj IVP SCH ×4 (01:52→17:59)
--- NOTE | 2017-07-07 02:30 | Consultation ---
DATE OF CONSULTATION: 07/06/2017 PULMONARY CONSULTATION CONSULTING PHYSICIAN: Shelley Jason D.O. REASON FOR CONSULTATION: Shortness of breath. HISTORY OF PRESENT ILLNESS: An 82-year-old female who was just discharged after a prolonged hospitalization at [facility]. She came [facility] from her [facility] facility complaining that she cannot breathe, coughing, and worsening shortness of breath. She was initially placed on BiPAP. She has had no nausea, vomiting or diarrhea. No phlegm production. No fevers, chills, or body aches and currently on face mask with saturations of 91% on 55% O2. She is tolerating her dinner without any signs of aspiration. PAST MEDICAL HISTORY: COPD, hypertension, rectal cancer, gastroesophageal reflux disease, and cerebrovascular accident. PAST SURGICAL HISTORY: None. CURRENT MEDICATIONS: Prehospital medications reviewed, reconciled, and documented in the electronic medical record. ALLERGIES: She has no known drug allergies. FAMILY HISTORY: Noncontributory. PHYSICAL EXAMINATION: GENERAL: At the time of exam, she is alert and she is oriented. She is currently in no acute respiratory distress, on face mask. VITAL SIGNS: Afebrile, pulse is 85, respirations 22, she is on 55% ventilatory mask, saturations are between 91 to 94%. HEENT: She is normocephalic atraumatic. Oropharynx is moist. Nasopharynx is moist. NECK: Supple. No lymphadenopathy. LUNGS: Bilateral rhonchi. No wheezes. HEART: Tachycardic and irregular without murmur. ABDOMEN: Soft and nontender. Positive bowel sounds. EXTREMITIES: No edema. NEUROLOGICAL: No focal neurological deficit. SKIN: No skin rashes. No lesions present. LABORATORY DATA: Her white count 20, her hemoglobin 13.2, her platelets are 156,000. Her sodium is 129, potassium 4, chloride 89, bicarbonate 30, BUN 34, creatinine 0.8, glucose is 156. Troponin 0.07, which is normal. An ABG was 7.44, 65, and 50. Her chest x-ray, per the emergency room report, possible right-sided pneumonia. ASSESSMENT AND PLAN: 1. Respiratory failure. 2. Severe chronic obstructive pulmonary disease with recurrent exacerbation. 3. Coronary artery disease. 4. History of stroke. 5. Hypertension. 6. Hypercholesterolemia. 7. Atrial fibrillation with history of rapid ventricular response. 8. Congestive heart failure. 9. Hypothyroidism. Plan for the patient, she has been placed on Solu-Medrol 40 mg q.6 h. and albuterol and DuoNebs. We removed the Atrovent secondary to her arrhythmia and placed her on Atrovent and Xopenex. Trend her cardiac troponin. DVT prophylaxis. Antibiotics to be continued. Aspiration precautions at all times. Monitor heart rate as during her hospitalization in [facility] when she was in atrial fibrillation with rapid rate, her respiratory status significantly declined. We will repeat a chest x-ray, p.r.n. ABG, and BiPAP as needed for respiratory distress. Shelley Jason D.O. DR: Clarence JOB#: [id number] CC:
[2017-07-07] MEDS: Ipratropium 0.02% Inh Soln 2.5ml UD HHN SCH ×6 (03:00→23:29)
[2017-07-07 04:00] VITALS: BP 120/72
[2017-07-07] MEDS: Levalbuterol Inh UD 1.25mg/0.5ml HHN SCH ×6 (06:51→23:29)
[2017-07-07 08:00] VITALS: BP 120/53
[2017-07-07] MEDS: Docusate 250mg cap ORAL SCH ×2 (09:00→20:46)
[2017-07-07] MEDS: Heparin 5000 units/ml inj SUBQ SCH ×2 (09:00→20:50)
[2017-07-07] MEDS ORDERED: Furosemide 40mg tab ORAL SCH (09:00)
[2017-07-07] MEDS: Lisinopril 10mg tab ORAL SCH (09:00)
[2017-07-07 09:44] LABS: ANION GAP 1 mmol/L (5-15); BLOOD UREA NITROGEN 27 mg/dL (7-18); CALCIUM 7.5 MG/DL (8.5-10.1); CARBON DIOXIDE 38 MMOL/L (21-32); CHLORIDE 90 MMOL/L (98-107); CREATININE 0.8 MG/DL (0.55-1.30); POTASSIUM 4.1 MMOL/L (3.5-5.1); SODIUM 129 MMOL/L (136-145)
[2017-07-07 09:51] LABS: HEMATOCRIT 41.9 % (37.0-47.0); HEMOGLOBIN 13.6 G/DL (12.0-16.0); MEAN CORPUSCULAR VOLUME 94 FL (80-99); PLATELET COUNT 135 K/UL (150-450); RED BLOOD COUNT 4.46 M/UL (4.20-5.40); RED CELL DISTRIBUTION WIDTH 11.3 % (11.6-14.8); WHITE BLOOD COUNT 11.6 K/UL (4.8-10.8)
[2017-07-07] MEDS: Aspirin Baby 81mg ORAL SCH (09:56)
[2017-07-07] MEDS: Metoprolol 25mg tab ORAL SCH ×2 (09:56→20:46)
[2017-07-07] MEDS: dilTIAZem HCl CD 180mg cap ORAL SCH (09:56)
--- NOTE | 2017-07-07 11:10 | General Progress Note ---
Assessment/Plan Problem List: (1) Exacerbation of asthma (2) Hyponatremia (3) Acute exacerbation of chronic obstructive pulmonary disease (COPD) ICD Codes: J44.1 - Chronic obstructive pulmonary disease with(acute) exacerbation SNOMED: 893083822 (4) Edema extremities ICD Codes: R60.9 - Edema extremities SNOMED: 401274357 (5) Respiratory failure ICD Codes: J96.90 - Respiratory failure, unspecified, unspecified whether with hypoxia or hypercapnia SNOMED: 400659268 (6) Hypothyroid ICD Codes: E03.9 - Hypothyroidism, unspecified SNOMED: 48609217 Assessment/Plan continue hhn, steroids, fluid restrict, dc lasix 07/07 Subjective Constitutional: Reports: weakness HEENT: Reports: no symptoms Cardiovascular: Reports: edema Respiratory: Reports: cough, shortness of breath, SOB at rest Gastrointestinal/Abdominal: Reports: no symptoms Genitourinary: Reports: no symptoms Neurologic/Psychiatric: Reports: tremors Allergies: Coded Allergies: MOXIFLOXACIN HCL (Verified Allergy, Intermediate, Rash, 04/08/12) HYDROCHLOROTHIAZIDE (Verified Adverse Reaction, Intermediate, HYPONATEREMIA, 03/22/13) TRIAMTERENE (Verified Adverse Reaction, Intermediate, HYPONATEREMIA, ) Objective Last 24 Hour Vital Signs Date Time Temp Pulse Resp B/P (MAP) Pulse Ox O2 Delivery O2 Flow Rate FiO2 07/07/17 09:56 79 120/53 07/07/17 09:56 79 120/53 07/07/17 08:00 79 07/07/17 08:00 97.5 95 20 120/53 97 Nasal Cannula 3.0 07/07/17 07:03 79 20 93 Venturi Mask 14.0 55 07/07/17 06:51 88 18 89 Venturi Mask 14.0 55 07/07/17 04:00 70 07/07/17 04:00 97.9 69 20 120/72 94 Nasal Cannula 3.0 07/07/17 03:59 Nasal Cannula 07/07/17 03:56 Nasal Cannula 07/07/17 00:17 81 18 Venturi Mask 14.0 55 07/07/17 00:00 168 07/07/17 00:00 98.4 72 20 125/65 94 Nasal Cannula 3.0 07/06/17 23:24 Nasal Cannula 07/06/17 23:24 85 18 94 Venturi Mask 14.0 55 07/06/17 23:24 Nasal Cannula 07/06/17 22:14 85 101/87 07/06/17 20:00 97.9 68 18 131/73 94 Venturi Mask 55 07/06/17 20:00 109 07/06/17 16:32 85 22 94 Venturi Mask 14.0 55 07/06/17 16:25 95 22 94 Venturi Mask 14.0 55 07/06/17 16:00 97.9 97 18 101/87 94 Venturi Mask 55 07/06/17 15:42 90 07/06/17 14:41 88 23 97 Facial 50 07/06/17 14:40 94 07/06/17 14:25 98.1 73 25 104/65 99 Bi-pap 4.0 50 07/06/17 13:25 73 25 104/65 99 Bi-pap 50 07/06/17 12:59 83 25 99 Bi-pap 50 07/06/17 12:56 88 23 97 Facial 50 07/06/17 12:51 88 27 98 Bi-pap 50 07/06/17 12:45 88 07/06/17 12:43 88 27 Bi-pap 07/06/17 12:42 88 28 98 Bi-pap 50 07/06/17 12:04 84 22 93 Facial 50 07/06/17 11:58 50 07/06/17 11:30 91 26 110/46 90 Nasal Cannula 4.0 Intake and Output 07/06/17 07/07/17 19:00 07:00 Intake Total 360 ml 300 ml Balance 360 ml 300 ml Intake Oral 360 ml 300 ml # Voids 1 # Bowel Movements 30 101 Laboratory Tests 07/07/17 08:45: White Blood Count 11.6H, Red Blood Count 4.46, Hemoglobin 13.6, Hematocrit 41.9 , Mean Corpuscular Volume 94, Mean Corpuscular Hemoglobin 30.4, Mean Corpuscular Hemoglobin Concent 32.4, Red Cell Distribution Width 11.3L, Platelet Count 135L, Mean Platelet Volume 6.2L, Neutrophils (%) (Auto) , Lymphocytes (%) (Auto) , Monocytes (%) (Auto) , Eosinophils (%) (Auto) , Basophils (%) (Auto) , Differential Total Cells Counted 100, Neutrophils % ( Manual) 97H, Lymphocytes % (Manual) 1L, Monocytes % (Manual) 2, Eosinophils % ( Manual) 0, Basophils % (Manual) 0, Band Neutrophils 0, Platelet Estimate DecreasedL, Platelet Morphology Normal, Red Blood Cell Morphology Normal, Sodium Level 129L, Potassium Level 4.1, Chloride Level 90L, Carbon Dioxide Level 38H, Anion Gap 1L, Blood Urea Nitrogen 27H, Creatinine 0.8, Estimat Glomerular Filtration Rate , Glucose Level 192H, Calcium Level 7.5L Height (Feet): 5 Height (Inches): 2.00 Weight (Pounds): 137 General Appearance: alert, moderate distress EENT: normal ENT inspection Neck: normal alignment Cardiovascular: regular rhythm, tachycardia Respiratory/Chest: rhonchi - bilaterally Abdomen: non tender Edema: 1+ Leg (L), 1+ Leg (R) Neurologic: verification lead II-XII grossly normal AUBREY COLEMAN Jul 07, 2017 11:10
[2017-07-07 12:00] VITALS: BP 130/76
[2017-07-07 16:00] VITALS: BP 103/46
--- NOTE | 2017-07-07 16:05 | Pulmonology Progress Note ---
Assessment/Plan Assessment/Plan 1. Respiratory failure. 2. Severe chronic obstructive pulmonary disease with recurrent exacerbation. 3. Coronary artery disease. 4. History of stroke. 5. Hypertension. 6. Hypercholesterolemia. 7. Atrial fibrillation with history of rapid ventricular response. 8. Congestive heart failure. 9. Hypothyroidism. Plan for the patient, steroids and taper nebs and monitor HR troponins fu abx o2 and titrate bipap qhs and prn distress cxr in am prn abg monitor closely Subjective Constitutional: Reports: no symptoms HEENT: Repors: no symptoms Respiratory: Reports: productive cough, shortness of breath Cardiovascular: Reports: no symptoms Gastrointestinal/Abdominal: Reports: no symptoms Genitourinary: Reports: no symptoms Neurologic: Reports: no symptoms Psychiatric: Reports: no symptoms Allergies: Coded Allergies: MOXIFLOXACIN HCL (Verified Allergy, Intermediate, Rash, 04/08/12) HYDROCHLOROTHIAZIDE (Verified Adverse Reaction, Intermediate, HYPONATEREMIA, 03/22/13) TRIAMTERENE (Verified Adverse Reaction, Intermediate, HYPONATEREMIA, ) Subjective stillwith sob on o2 sats 90 off bipap at this time no cp nv or bleeding minimal po very shortness of breath with exertion Objective Last 24 Hour Vital Signs Date Time Temp Pulse Resp B/P (MAP) Pulse Ox O2 Delivery O2 Flow Rate FiO2 07/07/17 15:19 86 20 91 Venturi Mask 14.0 55 07/07/17 12:15 80 20 94 Venturi Mask 14.0 55 07/07/17 12:00 97.4 71 21 130/76 96 Nasal Cannula 3.0 07/07/17 12:00 87 20 90 Venturi Mask 14.0 55 07/07/17 11:48 71 07/07/17 09:56 79 120/53 07/07/17 09:56 79 120/53 07/07/17 08:00 79 07/07/17 08:00 97.5 95 20 120/53 97 Nasal Cannula 3.0 07/07/17 07:03 79 20 93 Venturi Mask 14.0 55 07/07/17 06:51 88 18 89 Venturi Mask 14.0 55 07/07/17 04:00 70 07/07/17 04:00 97.9 69 20 120/72 94 Nasal Cannula 3.0 07/07/17 03:59 Nasal Cannula 07/07/17 03:56 Nasal Cannula 07/07/17 00:17 81 18 Venturi Mask 14.0 55 07/07/17 00:00 168 07/07/17 00:00 98.4 72 20 125/65 94 Nasal Cannula 3.0 07/06/17 23:24 Nasal Cannula 07/06/17 23:24 85 18 94 Venturi Mask 14.0 55 07/06/17 23:24 Nasal Cannula 07/06/17 22:14 85 101/87 07/06/17 20:00 97.9 68 18 131/73 94 Venturi Mask 55 07/06/17 20:00 109 07/06/17 16:32 85 22 94 Venturi Mask 14.0 55 07/06/17 16:25 95 22 94 Venturi Mask 14.0 55 Intake and Output 07/06/17 07/07/17 19:00 07:00 Intake Total 360 ml 300 ml Balance 360 ml 300 ml Intake Oral 360 ml 300 ml # Voids 1 # Bowel Movements 30 101 General Appearance: WD/WN HEENT: atraumatic, anicteric Respiratory/Chest: rhonchi, expiratory wheezing Cardiovascular: murmur systolic, arrhythmia, irregularly irregular, edema Abdomen: soft, non tender, no organomegaly Extremities: no cyanosis, no clubbing Neurologic/Psychiatric: alert, oriented x 3, responsive Microbiology Date/Time Source Procedure Growth Status 07/06/17 10:29 Blood Blood Culture - Preliminary NO GROWTH AFTER 24 HOURS Resulted 07/06/17 10:29 Blood Blood Culture - Preliminary NO GROWTH AFTER 24 HOURS Resulted Laboratory Tests 07/07/17 07:46: Arterial Blood pH 7.468H, Arterial Blood Partial Pressure CO2 60.8*H, Arterial Blood Partial Pressure O2 74.4L, Arterial Blood HCO3 43.1H, Arterial Blood Oxygen Saturation 95.3, Arterial Blood Base Excess 16.3, Kai Test Positive 07/07/17 08:45: White Blood Count 11.6H, Red Blood Count 4.46, Hemoglobin 13.6, Hematocrit 41.9 , Mean Corpuscular Volume 94, Mean Corpuscular Hemoglobin 30.4, Mean Corpuscular Hemoglobin Concent 32.4, Red Cell Distribution Width 11.3L, Platelet Count 135L, Mean Platelet Volume 6.2L, Neutrophils (%) (Auto) , Lymphocytes (%) (Auto) , Monocytes (%) (Auto) , Eosinophils (%) (Auto) , Basophils (%) (Auto) , Differential Total Cells Counted 100, Neutrophils % ( Manual) 97H, Lymphocytes % (Manual) 1L, Monocytes % (Manual) 2, Eosinophils % ( Manual) 0, Basophils % (Manual) 0, Band Neutrophils 0, Platelet Estimate DecreasedL, Platelet Morphology Normal, Red Blood Cell Morphology Normal, Sodium Level 129L, Potassium Level 4.1, Chloride Level 90L, Carbon Dioxide Level 38H, Anion Gap 1L, Blood Urea Nitrogen 27H, Creatinine 0.8, Estimat Glomerular Filtration Rate , Glucose Level 192H, Calcium Level 7.5L Current Medications Medications (Trade) Dose Ordered Sig/Hasmukh Route PRN Reason Start Time Stop Time Status Last Admin Dose Admin Acetaminophen (Tylenol) 650 mg Q4H PRN ORAL Mild Pain (Pain 1-3)/FEVER 07/06/17 15:15 08/05/17 15:14 Aspirin (ASA) 81 mg DAILY ORAL 07/07/17 09:00 08/06/17 08:59 07/07/17 09:56 Atorvastatin Calcium (Lipitor) 20 mg QHS ORAL 07/06/17 21:00 08/05/17 20:59 07/06/17 22:13 Dextrose (Dextrose 50%) STAT PRN IV Hypoglycemia 07/06/17 15:15 08/05/17 15:14 Diltiazem HCl (Cardizem CD) 360 mg DAILY ORAL 07/07/17 09:00 08/06/17 08:59 07/07/17 09:56 Docusate Sodium (Colace) 250 mg BID ORAL 07/06/17 18:00 07/07/17 18:00 Docusate Sodium (Colace) 250 mg EVERY 12 HOURS ORAL 07/07/17 21:00 08/05/17 17:59 Doxycycline Monohydrate (Vibramycin) 100 mg EVERY 12 HOURS ORAL 07/06/17 21:00 07/13/17 20:59 07/07/17 09:56 Heparin Sodium (Porcine) (Heparin 5000 units/ml) 5,000 units EVERY 12 HOURS SUBQ 07/06/17 21:00 08/05/17 20:59 07/06/17 22:16 Ipratropium [place] (Atrovent) 500 mcg Q4HRT HHN 1/6/18 23:00 07/11/17 22:59 07/07/17 15:18 Levalbuterol HCl (Xopenex) 1.25 mg Q4HRT HHN 07/06/17 23:00 07/11/17 22:59 07/07/17 15:18 Levothyroxine Sodium (Synthroid) 100 mcg ACBREAKFAST ORAL 07/07/17 06:30 08/06/17 06:29 07/07/17 06:43 Lisinopril (Zestril) 10 mg DAILY ORAL 07/07/17 09:00 08/06/17 08:59 Magnesium Hydroxide (Mom) 30 ml HSPRN PRN ORAL Constipation 07/06/17 15:15 08/05/17 15:14 Methadone HCl (Methadone HCl) 50 mg DAILY ORAL 07/07/17 09:00 07/14/17 08:59 07/07/17 09:57 Methylprednisolone Sodium Succinate (Solu-MEDROL) 40 mg EVERY 6 HOURS IVP 07/06/17 18:00 08/05/17 17:59 07/07/17 12:21 Metoprolol Tartrate (Lopressor) 25 mg EVERY 12 HOURS ORAL 07/06/17 21:00 08/05/17 20:59 07/07/17 09:56 Nitroglycerin (Ntg) 0.4 mg Q5M PRN SL Prn Chest Pain 07/06/17 15:15 08/05/17 15:14 Ondansetron HCl (Zofran) 4 mg Q6H PRN IVP Nausea & Vomiting 07/06/17 15:15 08/05/17 15:14 Tamsulosin HCl (Flomax) 0.4 mg BEDTIME ORAL 07/06/17 21:00 08/05/17 20:59 07/06/17 22:17 ABBE VÁZQUEZ DO Jul 07, 2017 16:05
[2017-07-07 20:00] VITALS: BP 111/53
[2017-07-07] MEDS: Tamsulosin 0.4mg cap ORAL SCH (20:46)
[2017-07-08] VITALS: BP 100/50
[2017-07-08] MEDS: Solu-MEDROL 40mg Inj IVP SCH ×5 (00:37→23:00)
[2017-07-08] MEDS: Ipratropium 0.02% Inh Soln 2.5ml UD HHN SCH ×6 (03:00→23:00)
[2017-07-08] MEDS: Levalbuterol Inh UD 1.25mg/0.5ml HHN SCH ×6 (03:00→23:00)
[2017-07-08 04:00] VITALS: BP 101/50
[2017-07-08 06:35] LABS: ANION GAP 3 mmol/L (5-15); BLOOD UREA NITROGEN 30 mg/dL (7-18); CALCIUM 7.8 MG/DL (8.5-10.1); CARBON DIOXIDE 40 MMOL/L (21-32); CHLORIDE 92 MMOL/L (98-107); CREATININE 0.8 MG/DL (0.55-1.30); POTASSIUM 4.4 MMOL/L (3.5-5.1); SODIUM 135 MMOL/L (136-145)
[2017-07-08 08:00] VITALS: BP 115/49
[2017-07-08] MEDS: Docusate 250mg cap ORAL SCH ×2 (08:43→20:41)
--- NOTE | 2017-07-08 08:44 | General Progress Note ---
Assessment/Plan Problem List: (1) Exacerbation of asthma (2) Hyponatremia (3) Acute exacerbation of chronic obstructive pulmonary disease (COPD) ICD Codes: J44.1 - Chronic obstructive pulmonary disease with(acute) exacerbation SNOMED: 395244035 (4) Edema extremities ICD Codes: R60.9 - Edema extremities SNOMED: 702777677 (5) Respiratory failure ICD Codes: J96.90 - Respiratory failure, unspecified, unspecified whether with hypoxia or hypercapnia SNOMED: 831945909 (6) Hypothyroid ICD Codes: E03.9 - Hypothyroidism, unspecified SNOMED: 85592459 (7) Fluid overload ICD Codes: E87.70 - Fluid overload, unspecified SNOMED: 86770345 Assessment/Plan continue hhn, steroids, fluid restrict, dc lasix 07/07 Subjective Constitutional: Reports: weakness HEENT: Reports: no symptoms Cardiovascular: Reports: irregular heart rate Respiratory: Reports: cough, shortness of breath Gastrointestinal/Abdominal: Reports: no symptoms Genitourinary: Reports: no symptoms Neurologic/Psychiatric: Reports: no symptoms Endocrine: Reports: no symptoms Allergies: Coded Allergies: MOXIFLOXACIN HCL (Verified Allergy, Intermediate, Rash, 04/08/12) HYDROCHLOROTHIAZIDE (Verified Adverse Reaction, Intermediate, HYPONATEREMIA, 03/22/13) TRIAMTERENE (Verified Adverse Reaction, Intermediate, HYPONATEREMIA, ) Objective Last 24 Hour Vital Signs Date Time Temp Pulse Resp B/P (MAP) Pulse Ox O2 Delivery O2 Flow Rate FiO2 07/08/17 08:26 Nasal Cannula 4.0 36 07/08/17 07:40 Nasal Cannula 4.0 36 07/08/17 04:00 98.1 60 20 101/50 92 Nasal Cannula 3.0 07/08/17 04:00 54 07/08/17 03:02 Nasal Cannula 4.0 36 07/08/17 03:02 Nasal Cannula 4.0 36 07/08/17 00:00 58 07/08/17 00:00 98.1 68 20 100/50 92 Nasal Cannula 3.0 07/07/17 23:14 68 20 93 Nasal Cannula 4.0 36 07/07/17 23:05 65 18 89 Nasal Cannula 4.0 36 07/07/17 20:46 63 111/53 07/07/17 20:00 78 07/07/17 20:00 98.2 63 20 111/53 94 Nasal Cannula 3.0 07/07/17 19:09 91 18 93 Nasal Cannula 4.0 36 07/07/17 19:02 73 18 93 Nasal Cannula 4.0 36 07/07/17 17:57 86 20 95 Nasal Cannula 4.0 36 07/07/17 17:48 86 20 91 Nasal Cannula 4.0 36 07/07/17 17:01 60 07/07/17 16:00 97.6 63 20 103/46 97 Nasal Cannula 3.0 07/07/17 15:29 81 20 95 Venturi Mask 14.0 55 07/07/17 15:19 86 20 91 Venturi Mask 14.0 55 07/07/17 12:15 80 20 94 Venturi Mask 14.0 55 07/07/17 12:00 97.4 71 21 130/76 96 Nasal Cannula 3.0 07/07/17 12:00 87 20 90 Venturi Mask 14.0 55 07/07/17 11:48 71 07/07/17 09:56 79 120/53 07/07/17 09:56 79 120/53 Intake and Output 07/07/17 07/08/17 19:00 07:00 Intake Total 600 ml 600 ml Balance 600 ml 600 ml Intake Oral 600 ml 600 ml # Voids 3 # Bowel Movements 101 Laboratory Tests 07/07/17 08:45: White Blood Count 11.6H, Red Blood Count 4.46, Hemoglobin 13.6, Hematocrit 41.9 , Mean Corpuscular Volume 94, Mean Corpuscular Hemoglobin 30.4, Mean Corpuscular Hemoglobin Concent 32.4, Red Cell Distribution Width 11.3L, Platelet Count 135L, Mean Platelet Volume 6.2L, Neutrophils (%) (Auto) , Lymphocytes (%) (Auto) , Monocytes (%) (Auto) , Eosinophils (%) (Auto) , Basophils (%) (Auto) , Differential Total Cells Counted 100, Neutrophils % ( Manual) 97H, Lymphocytes % (Manual) 1L, Monocytes % (Manual) 2, Eosinophils % ( Manual) 0, Basophils % (Manual) 0, Band Neutrophils 0, Platelet Estimate DecreasedL, Platelet Morphology Normal, Red Blood Cell Morphology Normal, Sodium Level 129L, Potassium Level 4.1, Chloride Level 90L, Carbon Dioxide Level 38H, Anion Gap 1L, Blood Urea Nitrogen 27H, Creatinine 0.8, Estimat Glomerular Filtration Rate , Glucose Level 192H, Calcium Level 7.5L 07/08/17 04:30: Sodium Level 135L, Potassium Level 4.4, Chloride Level 92L, Carbon Dioxide Level 40H, Anion Gap 3L, Blood Urea Nitrogen 30H, Creatinine 0.8, Estimat Glomerular Filtration Rate , Glucose Level 114H, Calcium Level 7.8L Height (Feet): 5 Height (Inches): 2.00 Weight (Pounds): 137 General Appearance: alert, mild distress EENT: normal ENT inspection Neck: normal alignment Cardiovascular: regular rhythm Respiratory/Chest: rhonchi - bilaterally Abdomen: non tender, soft, no organomegaly Edema: 1+ Leg (L), 1+ Leg (R) 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
[2017-07-08] MEDS: Aspirin Baby 81mg ORAL SCH (08:45)
[2017-07-08] MEDS: Metoprolol 25mg tab ORAL SCH ×2 (08:49→20:41)
[2017-07-08] MEDS: dilTIAZem HCl CD 180mg cap ORAL SCH (08:49)
[2017-07-08] MEDS: Heparin 5000 units/ml inj SUBQ SCH ×2 (08:49→20:43)
[2017-07-08] MEDS: Lisinopril 10mg tab ORAL SCH (08:50)
--- NOTE | 2017-07-08 09:54 | Pulmonology Progress Note ---
Assessment/Plan Assessment/Plan 1. Respiratory failure. 2. Severe chronic obstructive pulmonary disease with recurrent exacerbation. 3. Coronary artery disease. 4. History of stroke. 5. Hypertension. 6. Hypercholesterolemia. 7. Atrial fibrillation with history of rapid ventricular response. 8. Congestive heart failure. 9. Hypothyroidism. Plan: steroids and taper nebs and monitor HR troponins fu abx o2 and titrate bipap qhs and prn distress prn abg monitor closely Subjective Interval Events: Better Constitutional: Reports: no symptoms HEENT: Repors: no symptoms Respiratory: Reports: dry cough, shortness of breath Cardiovascular: Reports: no symptoms Gastrointestinal/Abdominal: Reports: no symptoms Allergies: Coded Allergies: MOXIFLOXACIN HCL (Verified Allergy, Intermediate, Rash, 04/08/12) HYDROCHLOROTHIAZIDE (Verified Adverse Reaction, Intermediate, HYPONATEREMIA, 03/22/13) TRIAMTERENE (Verified Adverse Reaction, Intermediate, HYPONATEREMIA, ) Objective Last 24 Hour Vital Signs Date Time Temp Pulse Resp B/P (MAP) Pulse Ox O2 Delivery O2 Flow Rate FiO2 07/08/17 08:50 115/49 07/08/17 08:49 64 115/49 07/08/17 08:49 64 115/49 07/08/17 08:26 Nasal Cannula 4.0 36 07/08/17 07:40 Nasal Cannula 4.0 36 07/08/17 04:00 98.1 60 20 101/50 92 Nasal Cannula 3.0 07/08/17 04:00 54 07/08/17 03:02 Nasal Cannula 4.0 36 07/08/17 03:02 Nasal Cannula 4.0 36 07/08/17 00:00 58 07/08/17 00:00 98.1 68 20 100/50 92 Nasal Cannula 3.0 07/07/17 23:14 68 20 93 Nasal Cannula 4.0 36 07/07/17 23:05 65 18 89 Nasal Cannula 4.0 36 07/07/17 20:46 63 111/53 07/07/17 20:00 78 07/07/17 20:00 98.2 63 20 111/53 94 Nasal Cannula 3.0 07/07/17 19:09 91 18 93 Nasal Cannula 4.0 36 07/07/17 19:02 73 18 93 Nasal Cannula 4.0 36 07/07/17 17:57 86 20 95 Nasal Cannula 4.0 36 07/07/17 17:48 86 20 91 Nasal Cannula 4.0 36 07/07/17 17:01 60 07/07/17 16:00 97.6 63 20 103/46 97 Nasal Cannula 3.0 07/07/17 15:29 81 20 95 Venturi Mask 14.0 55 07/07/17 15:19 86 20 91 Venturi Mask 14.0 55 07/07/17 12:15 80 20 94 Venturi Mask 14.0 55 07/07/17 12:00 97.4 71 21 130/76 96 Nasal Cannula 3.0 07/07/17 12:00 87 20 90 Venturi Mask 14.0 55 07/07/17 11:48 71 07/07/17 09:56 79 120/53 07/07/17 09:56 79 120/53 Intake and Output 07/07/17 07/08/17 19:00 07:00 Intake Total 600 ml 600 ml Balance 600 ml 600 ml Intake Oral 600 ml 600 ml # Voids 3 # Bowel Movements 101 General Appearance: no acute distress HEENT: normocephalic Respiratory/Chest: chest wall non-tender, decreased breath sounds Cardiovascular: normal peripheral pulses, normal rate Microbiology Date/Time Source Procedure Growth Status 07/06/17 10:29 Blood Blood Culture - Preliminary NO GROWTH AFTER 24 HOURS Resulted 07/06/17 10:29 Blood Blood Culture - Preliminary NO GROWTH AFTER 24 HOURS Resulted 07/06/17 14:25 Nasal Nares Left MRSA Culture - Final NO METHICILLIN RESISTANT STAPH AUREUS... Complete 07/06/17 14:25 Rectum VRE Culture - Final Enterococcus Faecium - Vre Complete Laboratory Tests 07/08/17 04:30: Sodium Level 135L, Potassium Level 4.4, Chloride Level 92L, Carbon Dioxide Level 40H, Anion Gap 3L, Blood Urea Nitrogen 30H, Creatinine 0.8, Estimat Glomerular Filtration Rate , Glucose Level 114H, Calcium Level 7.8L Current Medications Medications (Trade) Dose Ordered Sig/Hasmukh Route PRN Reason Start Time Stop Time Status Last Admin Dose Admin Acetaminophen (Tylenol) 650 mg Q4H PRN ORAL Mild Pain (Pain 1-3)/FEVER 07/06/17 15:15 08/05/17 15:14 Aspirin (ASA) 81 mg DAILY ORAL 1/7/18 09:00 08/06/17 08:59 07/08/17 08:45 Atorvastatin Calcium (Lipitor) 20 mg QHS ORAL 07/06/17 21:00 08/05/17 20:59 07/07/17 20:46 Dextrose (Dextrose 50%) STAT PRN IV Hypoglycemia 07/06/17 15:15 08/05/17 15:14 Diltiazem HCl (Cardizem CD) 360 mg DAILY ORAL 07/07/17 09:00 08/06/17 08:59 07/07/17 09:56 Docusate Sodium (Colace) 250 mg EVERY 12 HOURS ORAL 07/07/17 21:00 08/05/17 17:59 07/08/17 08:43 Doxycycline Monohydrate (Vibramycin) 100 mg EVERY 12 HOURS ORAL 07/06/17 21:00 07/13/17 20:59 07/08/17 08:43 Heparin Sodium (Porcine) (Heparin 5000 units/ml) 5,000 units EVERY 12 HOURS SUBQ 07/06/17 21:00 08/05/17 20:59 07/08/17 08:49 Ipratropium [place] (Atrovent) 500 mcg Q4HRT HHN 07/06/17 23:00 07/11/17 22:59 07/07/17 23:29 Levalbuterol HCl (Xopenex) 1.25 mg Q4HRT HHN 07/06/17 23:00 07/11/17 22:59 07/07/17 23:29 Levothyroxine Sodium (Synthroid) 100 mcg ACBREAKFAST ORAL 07/07/17 06:30 08/06/17 06:29 07/08/17 05:29 Lisinopril (Zestril) 10 mg DAILY ORAL 07/07/17 09:00 08/06/17 08:59 Magnesium Hydroxide (Mom) 30 ml HSPRN PRN ORAL Constipation 07/06/17 15:15 08/05/17 15:14 Methadone HCl (Methadone HCl) 50 mg DAILY ORAL 07/07/17 09:00 07/14/17 08:59 07/08/17 08:45 Methylprednisolone Sodium Succinate (Solu-MEDROL) 40 mg EVERY 6 HOURS IVP 07/06/17 18:00 08/05/17 17:59 07/08/17 05:30 Metoprolol Tartrate (Lopressor) 25 mg EVERY 12 HOURS ORAL 07/06/17 21:00 08/05/17 20:59 07/07/17 20:46 Nitroglycerin (Ntg) 0.4 mg Q5M PRN SL Prn Chest Pain 07/06/17 15:15 08/05/17 15:14 Ondansetron HCl (Zofran) 4 mg Q6H PRN IVP Nausea & Vomiting 07/06/17 15:15 08/05/17 15:14 Tamsulosin HCl (Flomax) 0.4 mg BEDTIME ORAL 07/06/17 21:00 08/05/17 20:59 07/07/17 20:46 Obi Cruz MD Jul 08, 2017 09:54
[2017-07-08 12:00] VITALS: BP 116/53
--- NOTE | 2017-07-08 12:13 | Wound Care Consultation ---
Wound Assessment Wound Assessment #1: Wound Number: 1 Wound Present on Admission: Yes New Wound: No Status Change of Wound: No Wound Location Body Site Modif: left, lower, anterior Wound Location Body Site: leg Wound Type: blister - blood blister Finn Test: Does not Finn Wound Thickness: Full Thickness Wound Length: 2.0 Wound Width: 1.0 Wound Depth: utd Percent of Wound Purple/Maroon: 100 Wound Drainage Amount: None Wound Drainage Odor: None/Absent Tissue Surrounding Wound: Intact - surrouding skin with maroon/red discolorations. Wound General Appearance: Reddened - maroon Wound Assessment #2: Wound Number: 2 Wound Present on Admission: Yes New Wound: No Status Change of Wound: No Wound Location Body Site Modif: left Wound Location Body Site: heel Wound Type: other - thick dry yellow callus skin Finn Test: Does not Finn Other Colors Identified: noted blanchable redness to site Wound Drainage Amount: None Wound Drainage Odor: None/Absent Tissue Surrounding Wound: Intact Wound General Appearance: Open to air Wound Assessment #3: Wound Number: 3 Wound Present on Admission: Yes New Wound: No Status Change of Wound: No Wound Location Body Site Modif: right Wound Location Body Site: heel Wound Type: other - thick dry yellow callus skin Finn Test: Does not Finn Other Colors Identified: noted blanchable redness to surrounding skin Wound Drainage Amount: None Wound Drainage Odor: None/Absent Tissue Surrounding Wound: Intact - noted thick brown/yellow intact callus Wound General Appearance: Open to air, Clean/Dry Wound Comment #1 Left anterior lower leg blood filled blister with surrounding skin noted with red/maroon discolorations. #2 Right heel thick dry callus surrounding skin blanchable redness. #3 Left heel thick dry callus surrounding skin blanchable redness. #4 Mid sacral blanchable redness . #5 Right an Left arm scattered discolorations. #6 Right lower leg scattered discolorations. Recommendation. -local wound care as ordered. -Turn and reposition. -Offload affected areas. -Optimize nutrition. -Assess and notify skin if any further change of condition to skin is noted. patient is ambulatory denies any discomfort to callus heels or sacral blanchable redness. FUAD RAMON Jul 08, 2017 12:13
[2017-07-08 16:00] VITALS: BP 123/53
[2017-07-08 20:00] VITALS: BP 128/63
[2017-07-08] MEDS: Tamsulosin 0.4mg cap ORAL SCH (20:41)
[2017-07-08] MEDS: Vitamin A&D Oint 2oz Tube TOPIC SCH (20:45)
[2017-07-09] VITALS (7 sets, daily range): BP systolic 105–131; BP diastolic 46–70
--- NOTE | 2017-07-09 00:05 | Cardiology Report ---
APPROVED REPORT EKG Measurement Heart [id number] Sinus rhythm with premature supraventricular complexes Cannot rule out Anterior infarct, age undetermined Abnormal ECG
[2017-07-09] MEDS: Ipratropium 0.02% Inh Soln 2.5ml UD HHN SCH ×4 (03:00→15:05)
[2017-07-09] MEDS: Levalbuterol Inh UD 1.25mg/0.5ml HHN SCH ×4 (03:00→15:05)
[2017-07-09] MEDS: Solu-MEDROL 40mg Inj IVP SCH ×3 (05:30→17:05)
[2017-07-09] MEDS: Aspirin Baby 81mg ORAL SCH (08:53)
[2017-07-09] MEDS: Metoprolol 25mg tab ORAL SCH ×2 (08:53→20:53)
[2017-07-09] MEDS: Docusate 250mg cap ORAL SCH ×2 (08:53→20:50)
[2017-07-09] MEDS: dilTIAZem HCl CD 180mg cap ORAL SCH (08:53)
[2017-07-09] MEDS: Vitamin A&D Oint 2oz Tube TOPIC SCH ×2 (08:54→20:54)
[2017-07-09] MEDS: Heparin 5000 units/ml inj SUBQ SCH ×2 (08:54→20:50)
[2017-07-09] MEDS: Lisinopril 10mg tab ORAL SCH (08:55)
--- NOTE | 2017-07-09 09:54 | Pulmonology Progress Note ---
Assessment/Plan Assessment/Plan 1. Respiratory failure. 2. Severe chronic obstructive pulmonary disease with recurrent exacerbation. 3. Coronary artery disease. 4. History of stroke. 5. Hypertension. 6. Hypercholesterolemia. 7. Atrial fibrillation with history of rapid ventricular response. 8. Congestive heart failure. 9. Hypothyroidism. Plan: steroids and taper nebs and monitor HR troponins fu abx o2 and titrate bipap qhs and prn distress OK to dc back to home vs SNF Subjective Interval Events: States she is better Constitutional: Reports: no symptoms HEENT: Repors: no symptoms Respiratory: Reports: dry cough, shortness of breath Cardiovascular: Reports: no symptoms Gastrointestinal/Abdominal: Reports: no symptoms Allergies: Coded Allergies: MOXIFLOXACIN HCL (Verified Allergy, Intermediate, Rash, 04/08/12) HYDROCHLOROTHIAZIDE (Verified Adverse Reaction, Intermediate, HYPONATEREMIA, 03/22/13) TRIAMTERENE (Verified Adverse Reaction, Intermediate, HYPONATEREMIA, ) Objective Last 24 Hour Vital Signs Date Time Temp Pulse Resp B/P (MAP) Pulse Ox O2 Delivery O2 Flow Rate FiO2 07/09/17 08:53 89 112/60 07/09/17 08:53 89 112/60 07/09/17 08:00 87 07/09/17 08:00 97.8 89 20 112/60 94 Nasal Cannula 3.0 07/09/17 07:48 88 20 99 Nasal Cannula 3.0 32 07/09/17 07:40 89 18 94 Nasal Cannula 3.0 32 07/09/17 04:00 97.7 82 20 105/56 94 Nasal Cannula 2.0 07/09/17 04:00 60 07/09/17 03:00 Nasal Cannula 3.0 32 07/09/17 03:00 Nasal Cannula 3.0 32 07/09/17 00:00 69 07/09/17 00:00 98.0 72 20 119/70 96 Nasal Cannula 2.0 07/08/17 23:01 Nasal Cannula 3.0 32 07/08/17 23:01 Nasal Cannula 3.0 32 07/08/17 20:41 88 142/66 07/08/17 20:00 98.1 92 20 128/63 95 Nasal Cannula 2.0 07/08/17 20:00 92 07/08/17 19:06 Nasal Cannula 3.0 32 07/08/17 19:06 115 18 94 Nasal Cannula 3.0 32 07/08/17 16:00 97.7 76 18 123/53 97 Nasal Cannula 3.0 07/08/17 16:00 74 07/08/17 14:51 Nasal Cannula 3.0 32 07/08/17 14:50 72 18 98 Nasal Cannula 3.0 32 07/08/17 12:00 73 07/08/17 12:00 97.9 78 18 116/53 95 Nasal Cannula 3.0 07/08/17 10:51 68 20 96 Nasal Cannula 3.0 32 07/08/17 10:45 70 18 93 Nasal Cannula 3.0 32 Intake and Output 07/08/17 07/09/17 19:00 07:00 Intake Total 860 ml Output Total 600 ml Balance 260 ml Intake Oral 860 ml Output Urine Total 600 ml # Voids 1 1 General Appearance: no acute distress HEENT: normocephalic Respiratory/Chest: chest wall non-tender, decreased breath sounds, rhonchi Cardiovascular: normal peripheral pulses Abdomen: normal bowel sounds Microbiology Date/Time Source Procedure Growth Status 07/06/17 10:29 Blood Blood Culture - Preliminary NO GROWTH AFTER 48 HOURS Resulted 07/06/17 10:29 Blood Blood Culture - Preliminary NO GROWTH AFTER 48 HOURS Resulted 07/06/17 14:25 Nasal Nares Left MRSA Culture - Final NO METHICILLIN RESISTANT STAPH AUREUS... Complete 07/06/17 14:25 Rectum VRE Culture - Final Enterococcus Faecium - Vre Complete Current Medications Medications (Trade) Dose Ordered Sig/Hasmukh Route PRN Reason Start Time Stop Time Status Last Admin Dose Admin Acetaminophen (Tylenol) 650 mg Q4H PRN ORAL Mild Pain (Pain 1-3)/FEVER 07/06/17 15:15 08/05/17 15:14 Aspirin (ASA) 81 mg DAILY ORAL 07/07/17 09:00 08/06/17 08:59 07/09/17 08:53 Atorvastatin Calcium (Lipitor) 20 mg QHS ORAL 07/06/17 21:00 08/05/17 20:59 07/08/17 20:41 Dextrose (Dextrose 50%) STAT PRN IV Hypoglycemia 07/06/17 15:15 08/05/17 15:14 Diltiazem HCl (Cardizem CD) 360 mg DAILY ORAL 07/07/17 09:00 08/06/17 08:59 07/09/17 08:53 Docusate Sodium (Colace) 250 mg EVERY 12 HOURS ORAL 07/07/17 21:00 08/05/17 17:59 07/08/17 20:41 Doxycycline Monohydrate (Vibramycin) 100 mg EVERY 12 HOURS ORAL 07/06/17 21:00 07/13/17 20:59 07/09/17 08:54 Heparin Sodium (Porcine) (Heparin 5000 units/ml) 5,000 units EVERY 12 HOURS SUBQ 07/06/17 21:00 08/05/17 20:59 07/08/17 20:43 Ipratropium [place] (Atrovent) 500 mcg Q4HRT HHN 07/06/17 23:00 07/11/17 22:59 07/09/17 07:39 Levalbuterol HCl (Xopenex) 1.25 mg Q4HRT HHN 07/06/17 23:00 07/11/17 22:59 07/09/17 07:39 Levothyroxine Sodium (Synthroid) 100 mcg ACBREAKFAST ORAL 07/07/17 06:30 08/06/17 06:29 07/09/17 05:30 Lisinopril (Zestril) 10 mg DAILY ORAL 07/07/17 09:00 08/06/17 08:59 Magnesium Hydroxide (Mom) 30 ml HSPRN PRN ORAL Constipation 07/06/17 15:15 08/05/17 15:14 Methadone HCl (Methadone HCl) 50 mg DAILY ORAL 07/07/17 09:00 07/14/17 08:59 07/09/17 08:52 Methylprednisolone Sodium Succinate (Solu-MEDROL) 40 mg EVERY 6 HOURS IVP 07/06/17 18:00 08/05/17 17:59 07/09/17 05:30 Metoprolol Tartrate (Lopressor) 25 mg EVERY 12 HOURS ORAL 07/06/17 21:00 08/05/17 20:59 07/09/17 08:53 Nitroglycerin (Ntg) 0.4 mg Q5M PRN SL Prn Chest Pain 07/06/17 15:15 08/05/17 15:14 Ondansetron HCl (Zofran) 4 mg Q6H PRN IVP Nausea & Vomiting 07/06/17 15:15 08/05/17 15:14 Tamsulosin HCl (Flomax) 0.4 mg BEDTIME ORAL 07/06/17 21:00 08/05/17 20:59 07/08/17 20:41 Vitamin A/Vitamin D (A & D Oint) 1 applic EVERY 12 HOURS TOPIC 07/08/17 21:00 08/07/17 20:59 07/09/17 08:54 Obi Cruz MD Jul 09, 2017 09:54
--- NOTE | 2017-07-09 14:41 | Diagnostic Imaging Report ---
Indication: Shortness of breath Technique: XRAY Chest 1v Comparison: 02/21/2017 Findings: Cardiomediastinal silhouette is stable. Patchy interstitial opacities are noted in the right upper lobe and right lung base. There is no pneumothorax or obvious pleural effusion. Degenerative changes of the spine are seen. Atherosclerotic changes are noted. Impression: Patchy interstitial infiltrates of the right lung. Small nodule in the right upper lobe cannot be excluded. Clinical correlation/follow-up recommended.
[2017-07-09] MEDS ORDERED: PREDNISONE20 M1 PO (17:50)
[2017-07-09] MEDS ORDERED: DOXYCYCLINE HY100 M2 ORAL (17:50)
[2017-07-09] MEDS: Tamsulosin 0.4mg cap ORAL SCH (20:50)
[2017-07-09] MEDS ORDERED: NS 275ml ONE (22:39)
--- NOTE | 2017-07-10 15:33 | Discharge Summary ---
DATE OF ADMISSION: 07/06/2017 DATE OF DISCHARGE: 07/09/2017 PERTINENT HISTORY: The patient has severe COPD and recurrent hospitalization, presents with increasing shortness of breath and wheezing, moderate distress. She recently completed treatment for influenza. 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 PERTINENT PHYSICAL FINDINGS: HEAD EYES, EARS, NOSE, AND THROAT: She is edentulous. Oral mucosa moist. LUNGS: Distant breath sounds. Severe wheezing and retractions. HEART: Regular rhythm. ABDOMEN: Soft. EXTREMITIES: Show trace to 1+ edema and she had reached maximum hospitalization benefit and was discharged to the rehabilitation center in [place] in improved condition. COURSE IN THE HOSPITAL: The patient was given high-dose steroids, nebulizer treatment, and empiric antibiotics. Chest x-ray showed patchy infiltrate. She was seen by Dr. Cruz, Pulmonary consultation. She had a gradual improvement of her pulmonary status on day of discharge. She was less dyspneic, although had still some wheezing on exam. FINAL DIAGNOSES: 1. Chronic obstructive pulmonary disease with acute exacerbation of chronic obstructive pulmonary disease and asthma. 2. Acute on chronic respiratory failure. 3. History of recent treatment of influenza. 4. History of hepatitis C and prior hepatic encephalopathy. 5. Anxiety. 6. History of methadone maintenance. 7. History of colon cancer and colostomy. 8. History of bladder cancer. 9. Hyponatremia. 10. History of hyperlipidemia. 11. History of hypertension. 12. History of congestive heart failure. 13. History of hypothyroidism. 14. History of supraventricular arrhythmias. 15. History of stroke. DISCHARGE DISPOSITION: The patient is discharged to the rehabilitation center in [place] on a regular diet. No added salt. DISCHARGE MEDICATIONS: Per the discharge medication list. FOLLOWUP: By Dr. Branch in the facility. Rosalino Montesinos M.D. DR: JEFF JOB#: [id number] CC:
== END 2017-07-09 22:40 | DRG 190 ==
LOC: EDBD 09:36 → EMR 10:10 → EDBEDREQ 10:16 → EDBEDREQSVC 10:16 → EDBEDREQ 13:38 → 2W 13:51
PROC: 5A09357 Assistance with Respiratory Ventilation, Less than 24 Consecutive Hours, Continuous Positive Airway Pressure (ICD-10-PCS; principal; 2017-07-06)
DX: J44.1 Chronic obstructive pulmonary disease with (acute) exacerbation (principal); J96.22 Acute and chronic respiratory failure with hypercapnia; I50.9 Heart failure, unspecified; I11.0 Hypertensive heart disease with heart failure; E87.1 Hypo-osmolality and hyponatremia; I48.91 Unspecified atrial fibrillation; J45.901 Unspecified asthma with (acute) exacerbation; I25.10 Atherosclerotic heart disease of native coronary artery without angina pectoris; E03.9 Hypothyroidism, unspecified; E78.00 Pure hypercholesterolemia, unspecified; F41.9 Anxiety disorder, unspecified; K75.9 Inflammatory liver disease, unspecified; Z86.73 Personal history of transient ischemic attack (TIA), and cerebral infarction without residual deficits; Z85.048 Personal history of other malignant neoplasm of rectum, rectosigmoid junction, and anus; Z85.51 Personal history of malignant neoplasm of bladder; Z79.891 Long term (current) use of opiate analgesic
CPT/HCPCS: 36415; 36600; 71045; 80048; 80053; 82550; 82553; 82803; 83880; 84484; 85007; 85025; 87040; 87081; 93005; 94640; 94664; 99282; 99285; J7620